=== PATIENT | female | born 2000 | race Caucasian/White ===

== ENCOUNTER 2022-01-03 22:36 | Emergency (ER) | payer OTHER, SELFPAY ==
[2022-01-03 22:54] VITALS: BP 107/75; PULSE 93; RESP 18; TEMP 37.2; O2SAT 96; BMI 24.7
[2022-01-03 23:28] LABS: Appearance Urine Clear (Clear); Bilirubin Urine Negative (Negative); Blood Urine Negative (Negative); Color Urine Yellow (Yellow); Glucose Urine Negative (Negative); Ketones Urine Negative (Negative); Leukocyte Esterase Urine Negative (Negative); Nitrite Urine Negative (Negative); Protein Urine Negative (Negative); Specific Gravity Urine >= 1.030 (1.000-1.030); Urobilinogen Urine 0.2 (0.2-1.0); pH Urine 6.5 (5.0-8.5)
--- NOTE | 2022-01-03 23:51 | ED.ABDPAIN ---
HPI - Abdominal Pain General Chief Complaint: Unspecified Complaint, Adult Stated Complaint: Chest pain and abdominal pain Time Seen by Provider: 01/03/22 23:26 History of Present Illness HPI narrative: 21-year-old young woman presenting to the emergency department with complaint of ?bad? mid abdominal pain radiating into the low back as well. This is similar to what she has experienced in the past but is not this bad. She indicates a problem with her liver and spleen and with her uterus. It sounds as though this liver and spleen issue with some years ago with a diagnosis of mononucleosis and subsequent hepatitis. She was treated through this emergency department bleed by myself did include initial course of steroids. Describes a history of dysmenorrhea and irregular menses more recently. Durations of also been irregular. Most recently just lasted 10 hours and has been spotting for 8-9 days. Denies dysuria. Pain is stabbing in nature. She is feeling nauseated. She feels like this is maybe built up over 3 weeks. Six days ago had an ultrasound following a clinic appointment the day prior. Results are not known to her at this time. --- on review of records later I am able to obtain results of this pelvic ultrasound which looks to be unremarkable. Physiologic fluid present-- she says ?me in my doctor trying to figure this out?. Referring to doctor Wendy. Does endorse a history of celiac disease does does not feel like she has exposed to any triggering factors here. Has tried treatment with ibuprofen 400 mg with essentially no relief. She is not having diarrhea. Is not constipated. Is not vomiting. No fever. No changes in oral contraceptives. Treatments prior to arrival: NSAIDs Related Data Home Medications Medication Instructions Recorded Confirmed levonorgestrel 0.15 mg-ethinyl tab 01/03/22 estradiol 0.03 mg tablet (Zairavelo (28)) Allergies Allergy/AdvReac Type Severity Reaction Status Date / Time No Known Drug Allergies Allergy Verified 01/03/22 22:59 Review of Systems Status of ROS Reports: 10 or more systems reviewed and unremarkable except as noted in History and below [facility] Social History Smoking Status: Never smoker How often do you have a drink containing alcohol: never AUDIT-C Alcohol total score: 0 Non-prescribed substance use: denies use service: No Exam Narrative: Exam Narrative: Pleasant. Seated hunched over a little bit in the bed. Looks rather uncomfortable. Apparently hurts more to lie back. Hands at her low abdomen. Accompanied here by a young man I perceive to be her boyfriend. Skin is warm and dry. Well perfused peripherally extremities are without edema. Oropharynx is a little sticky otherwise unremarkable. Neck is supple without LA. Lungs are clear Cardiovascular-elevated rate regular rhythm no murmurs rubs or gallops appreciated. Abdomen with normoactive bowel sounds. Soft. No peritoneal signs. Diffusely tender to palpation. Does not have discrete flank area tenderness. Const: Vital Signs, click to edit/add: Vital Signs - 24 hr 01/03/22 22:54 Temperature 98.9 F Pulse Rate [Left P ulse Oximeter] 93 Respiratory Rate 18 Blood Pressure [Ri ght Upper Arm] 107/75 Pulse Oximetry 96 Documenting provider has reviewed patient's vital signs: yes Course Course Hospital Course: IV was established. Was given ketorolac normal saline Zofran. Labs ordered. A nonsurgical belly and generalized tenderness suspect this is more of exacerbation of underlying chronic condition whether it is celiac issue or menstrual related. Medications did not help her pain. Wanted to avoid opiate pain medication. Still with complaint of pain and no diagnoses she would like to proceed with CT abdomen and pelvis. This was done. Reviewed by me. As expected. Did not appreciate any particular abnormality. See Radiology summation below. Discussed various pain management options including ketamine low-dose. She has settled for that. Was given this as well and discontinued midway through she did not like how it made her feel. Vital Signs Vital signs: Initial Vital Signs Temperature 98.9 F 01/03/22 22:54 Temperature Source Temporal Artery Scan 01/03/22 22:54 Pulse Rate 93 01/03/22 22:54 Respiratory Rate 18 01/03/22 22:54 Blood Pressure 107/75 01/03/22 22:54 Blood Pressure Mean 85 01/03/22 22:54 Blood Pressure Position Sitting 01/03/22 22:54 Pulse Oximetry 96 01/03/22 22:54 Oxygen Delivery Method 01/03/22 22:54 Vital Signs Temperature 98.9 F 01/03/22 22:54 Pulse Rate 93 01/03/22 22:54 Respiratory Rate 18 01/03/22 22:54 Blood Pressure 107/75 01/03/22 22:54 Pulse Oximetry 96 01/03/22 22:54 Temperature 98.9 F 01/03/22 22:54 Pulse Rate 71 01/04/22 03:00 Respiratory Rate 18 01/04/22 03:00 Blood Pressure 109/72 01/04/22 03:00 Pulse Oximetry 99 01/04/22 03:00 MDM - Abdominal Pain MDM Narrative Medical decision making narrative: Rather normal labs other than concentrated urine. Abdomen pelvis CT------- There is a punctate less than 1 mm stone present in the midzone of the right kidney. No ureteral obstruction or calculi seen. Adrenal: Unremarkable. Bowel: Unremarkable. The appendix is normal in appearance and size. Vascular: Unremarkable. Lymph: Unremarkable. Peritoneum: Unremarkable. No pneumoperitoneum is seen. No significant ascites is noted. Pelvis: Unremarkable. Soft tissue: Unremarkable. Bone: Unremarkable for age. IMPRESSION: 1. No CT correlate for the patient`s symptoms seen. Dictated by Emmanuel Penny MD @ 01/04/2022 2:32:23 AM Discussed all findings with Ms. Singh. She appears frustrated. Will follow up with primary care. Wonder if this is more of an irritable bowel picture complicated by menses intermittently. This might require further stabilization. Early on in course haddiscussed functional abdominal pain as well with Ms. Singh Medical Records Attestation: I reviewed the patient's medical records. Lab Data Attestation: I reviewed the patient's lab results. Labs: Lab Results 01/03/22 01/03/22 01/03/22 Range/Units 00:05 00:05 23:03 WBC 3.23 L (4.50-11.00) K/uL RBC 4.17 (4.00-5.20) m/uL Hgb 13.8 (12.0-16.0) gm/dL Hct 39.2 (33.0-51.0) % MCV 94 (80-100) fL MCH 33 (26-34) pg MCHC 35 (32-36) gm/dL RDW Coeff of Ramez 12.0 (11.5-15.5) % Plt Count 242 (140-440) K/uL Neut % (Auto) 31.9 L (42.0-72.0) % Lymph % (Auto) 50.8 H (20-44) % Wallace % (Auto) 14.6 H (0.0-11.0) % Eos % (Auto) 1.2 (0.0-7.0) % Baso % (Auto) 1.2 (0.0-3.0) % Neut # (Auto) 1.00 L (1.7-7.0) K/uL Lymph # (Auto) 1.60 (0.90-2.90) K/uL Wallace # (Auto) 0.50 (0.00-0.90) K/UL Eos # (Auto) 0.00 (0.00-0.50) K/uL Baso # (Auto) 0.00 (0.00-0.30) K/uL Abs Immat Gran (auto) 0.01 (0.00-0.30) K/uL Sodium 138 (135-149) mmol/L Potassium 3.8 (3.6-5.1) mmol/L Chloride 110 (96-114) mmol/L Carbon Dioxide 24 (20-32) mmol/L BUN 11 (5-24) mg/dL Creatinine 0.7 (0.6-1.2) mg/dL Estimated Creat Clear 102.24 Glucose 95 (60-115) mg/dL Calcium 8.7 (8.7-10.8) mg/dL Total Bilirubin 0.2 (0.1-1.5) mg/dL Direct Bilirubin 0.2 (0.0-0.5) mg/dL AST 29 (12-35) U/L ALT 27 (4-35) U/L Alkaline Phosphatase 79 (40-150) U/L C-Reactive Protein 0.6 (0.5-1.0) mg/dL Total Protein 6.0 (6.0-8.3) g/dL Albumin 3.8 (3.3-5.0) g/dL Urine Color Yellow (Yellow) Urine Appearance Clear (Clear) Urine pH 6.5 (5.0-8.5) Ur Specific [place] >= 1.030 (1.000-1.030) Urine Protein Negative (Negative) Urine Glucose (UA) Negative (Negative) Urine Ketones Negative (Negative) Urine Blood Negative (Negative) Urine Nitrite Negative (Negative) Urine Bilirubin Negative (Negative) Urine Urobilinogen 0.2 (0.2-1.0) Ur Leukocyte Esterase Negative (Negative) Urine HCG, Qual Negative (Negative) Discharge Plan Discharge Clinical Impression: Abdominal pain Patient Disposition: Home w/ Parent or Adult Condition: Improved Additional Instructions: important to stay well hydrated. can continue with ibuprofen or acetaminophen for pain at this time. I would follow up with Your primary care provider to discuss next steps in evaluation and/or management of your pain. return for marked increase in persistent pain, associated fever, intractable vomiting. Prescriptions: No Action levonorgestrel-ethinyl estrad [Gil (28)] 0.15-0.03 mg tablet 0RF Follow Up/Referrals: Rebekah Nguyen MD [Primary Care Provider] - Stand Alone Forms: [employer] Info Instructions
[2022-01-04 00:06] LABS: Ur HCG Qualitative* Negative (Negative)
[2022-01-04 00:19] LABS: Basophils Percent Auto 1.2 % (0.0-3.0); Eosinophils Percent Auto 1.2 % (0.0-7.0); Hematocrit 39.2 % (33.0-51.0); Hemoglobin* 13.8 gm/dL (12.0-16.0); Immature Granulocytes Abs Auto 0.01 K/uL (0.00-0.30); Lymphocytes Percent Auto 50.8 % (20-44); Mean Corpuscular HGB Conc 35 gm/dL (32-36); Mean Corpuscular Hemoglobin 33 pg (26-34); Mean Corpuscular Volume 94 fL (80-100); Monocytes Percent Auto 14.6 % (0.0-11.0); Neutrophils Percent Auto 31.9 % (42.0-72.0); Platelet Count* 242 K/uL (140-440); Red Blood Count 4.17 m/uL (4.00-5.20); White Blood Count* 3.23 K/uL (4.50-11.00)
[2022-01-04] MEDS: 0.9 % SODIUM CHLORIDE 1000 ml 1,000 ML IV (00:25)
[2022-01-04] MEDS: KETOROLAC 15 MG/ML inj 30 MG IVP (00:26)
[2022-01-04] MEDS: ONDANSETRON 2 MG/ML inj 4 MG IVP (00:26)
[2022-01-04 00:38] LABS: Albumin* 3.8 g/dL (3.3-5.0); Chloride* 110 mmol/L (96-114)
[2022-01-04 00:39] LABS: Potassium* 3.8 mmol/L (3.6-5.1); Sodium* 138 mmol/L (135-149)
[2022-01-04 00:41] LABS: Creatinine* 0.7 mg/dL (0.6-1.2); Est. Creatinine Clearance* 102.24; Estimated Glomerular Filt Rate 127.69
[2022-01-04 00:42] LABS: Alanine Aminotransferase* 27 U/L (4-35); Alkaline Phosphatase* 79 U/L (40-150); Aspartate Amino Transferase* 29 U/L (12-35); Bilirubin Direct* 0.2 mg/dL (0.0-0.5); Bilirubin Total* 0.2 mg/dL (0.1-1.5); Blood Urea Nitrogen* 11 mg/dL (5-24); Calcium* 8.7 mg/dL (8.7-10.8); Carbon Dioxide* 24 mmol/L (20-32); Glucose* 95 mg/dL (60-115)
[2022-01-04 00:45] LABS: C Reactive Protein* 0.6 mg/dL (0.5-1.0)
--- NOTE | 2022-01-04 01:45 | CRLHL7_ITS ---
For Patients: As a result of the Century Cures Act, medical imaging exams and procedure reports are released immediately into your electronic medical record. You may view this report before your referring provider. If you have questions, please contact your health care provider. INDICATION: Weeks of abdominal pain radiating into lower back TECHNIQUE: CT Abdomen and pelvis without i.v. contrast. Coronal and sagittal reformats were obtained. COMPARISON: None FINDINGS: Lower chest: Unremarkable. Liver: Unremarkable. Spleen: Unremarkable. Pancreas: Unremarkable. Gallbladder: Unremarkable. Kidney: There is a punctate less than 1 mm stone present in the midzone of the right kidney. No ureteral obstruction or calculi seen. Adrenal: Unremarkable. Bowel: Unremarkable. The appendix is normal in appearance and size. Vascular: Unremarkable. Lymph: Unremarkable. Peritoneum: Unremarkable. No pneumoperitoneum is seen. No significant ascites is noted. Pelvis: Unremarkable. Soft tissue: Unremarkable. Bone: Unremarkable for age. IMPRESSION: 1. No CT correlate for the patient`s symptoms seen. Dictated by Emmanuel Penny MD @ 01/04/2022 2:32:23 AM Please note that all CT scans at this facility use dose modulation, iterative reconstruction, and/or weight-based dosing when appropriate to reduce radiation dose to as low as reasonably achievable. Dictated by: Emmanuel Penny MD @ 01/04/2022 02:32:26 (Electronically Signed)
[2022-01-04] MEDS: KETAMINE HCL 20 MG in 0.9 % SODIUM CHLORIDE 100 ml 100 ML 300.6 MG IVPB (02:22)
[2022-01-04 02:25] VITALS: BP 104/70; PULSE 69; RESP 18; O2SAT 98
[2022-01-04 02:30] VITALS: BP 109/74; PULSE 75; RESP 18; O2SAT 99
[2022-01-04 02:45] VITALS: BP 103/70; PULSE 59; RESP 18; O2SAT 97
[2022-01-04 03:00] VITALS: BP 109/72; PULSE 71; RESP 18; O2SAT 99
[2022-01-04 14:51] LABS: Slide Review Reflex No
== END 2022-01-04 03:19 | disposition home or self-care (01) ==
PROVIDERS: Emergency Provider Family Medicine; PCP Family Medicine
DX: R10.9 Unspecified abdominal pain (principal)
CPT/HCPCS: 96365; 96375; 36415; 74176; 80048; 80076; 81003; 81025; 85025; 86140; 99284; J1885; J2405; J3490; J7030

== ENCOUNTER 2022-04-29 11:02 | Emergency (ER) | payer OTHER, SELFPAY ==
[2022-04-29 11:15] VITALS: BP 122/81; PULSE 74; RESP 20; TEMP 37.4; O2SAT 97; BMI 27.4
--- NOTE | 2022-04-29 11:39 | ED.GENADULT ---
HPI - General Adult General Chief complaint: Headache/Migraine Stated complaint: Hard to breathe and headache Time Seen by Provider: 04/29/22 11:22 History of Present Illness HPI narrative: This 22-year-old female comes in reporting severe headache for the past 5 days. She states that she had headache on and off for the last couple weeks but much worse over the past 5 days. She does report some pain in her neck and down her back also. She has not had any fevers. She does arrive here with normal vital signs. She does not report any injury event or strenuous activity. She gets occasional headaches but nothing like this. She also reports some pain in her lower sternal area and upper epigastric area that is worsened with taking a deep breath. She does not have any cough for shortness of breath. Related Data Home Medications Medication Instructions Recorded Confirmed levonorgestrel 0.15 mg-ethinyl tab 01/03/22 estradiol 0.03 mg tablet (Kurvelo (28)) Allergies Allergy/AdvReac Type Severity Reaction Status Date / Time gluten Allergy Verified 04/29/22 11:14 Review of Systems Status of ROS: Reports: 10 or more systems reviewed and unremarkable except as noted in History and below Narrative: Constitutional: No fevers, no weight gain or loss. Eyes: No discharge. No vision changes. HENT: No congestion, no sore throat, no ear pain. Cardiovascular: No palpitations. Respiratory: No shortness of breath, no wheezes, no cough. Gastrointestinal: No vomiting, no diarrhea. Upper epigastric abdominal pain which is worse with palpation. Genitourinary: No dysuria, no hematuria. Musculoskeletal: Normal range of motion. Skin: No rashes, no pruritis. Neurological: No dizziness, weakness, sensory change, speech change. Endo/Heme/Allergies: No bruising or bleeding. No polydipsia. Pysch: no suicidality, no anxiety, no insomnia. All other systems reviewed and are negative. PFSH [facility] Social History Smoking Status: Never smoker Do you use any of these nicotine containing products: None Second hand tobacco smoke exposure: No How often do you have a drink containing alcohol: never How often do you have six or more drinks on one occasion: Never AUDIT-C Alcohol total score: 0 Non-prescribed substance use: denies use service: No Exam Narrative: Exam Narrative: Constitutional: Well-developed, well-nourished, no acute distress. HEENT: Normocephalic, atraumatic. Neck: Normal range of motion. This patient has worsening pain in her neck when it flexing her head forward to attempt to touch her chin to her chest. She also has increased pain when pulling her knees up toward her chest. Heart: Regular. No murmurs. Normal rate. Intact distal pulses. Lungs: Clear to auscultation. No wheezes, rhonchi, or rales. She has distinct discomfort when palpating in the lower sternum and upper epigastric region. Abdomen: Normal bowel sounds. No rebound tenderness. Pain across the upper abdomen which is reproduced with palpation in this area. Genitalia: Deferred. Back: No midline tenderness. Normal range of motion. Extremities: Normal range of motion. No injury. Skin: Intact. No rash. Warm. No erythema or pallor. Neurologic: No altered sensation. No weakness. Alert and oriented. Psychiatric: No suicidality. No anxiety or depression. No insomnia. Nursing notes and vitals signs are reviewed. Const: Vital Signs, click to edit/add: Vital Signs - 24 hr 04/29/22 11:15 Temperature 99.4 F Pulse Rate [Pulse Oximeter] 74 Respiratory Rate 20 Blood Pressure [Ri ght Upper Arm] 122/81 Pulse Oximetry 97 Oxygen Delivery Me thod Room Air Course Vital Signs Vital signs: Initial Vital Signs Temperature 99.4 F 04/29/22 11:15 Temperature Source Temporal Artery Scan 04/29/22 11:15 Pulse Rate 74 04/29/22 11:15 Pulse Rhythm 04/29/22 11:15 Respiratory Rate 20 04/29/22 11:15 Blood Pressure 122/81 04/29/22 11:15 Blood Pressure Mean 94 04/29/22 11:15 Blood Pressure Position Supine 04/29/22 11:15 Pulse Oximetry 97 04/29/22 11:15 Oxygen Delivery Method 04/29/22 11:15 Vital Signs Temperature 99.4 F 04/29/22 11:15 Pulse Rate 74 04/29/22 11:15 Respiratory Rate 20 04/29/22 11:15 Blood Pressure 122/81 04/29/22 11:15 Pulse Oximetry 97 04/29/22 11:15 Oxygen Delivery Method 04/29/22 11:15 Temperature 99.4 F 04/29/22 11:15 Pulse Rate 74 04/29/22 11:15 Respiratory Rate 20 04/29/22 11:15 Blood Pressure 122/81 04/29/22 11:15 Pulse Oximetry 97 04/29/22 11:15 Oxygen Delivery Method 04/29/22 11:15 Medical Decision Making MDM Narrative Medical decision making narrative: This patient comes in with headache and upper epigastric abdominal pain. She does report pain going down her back and neck. I did discuss possibility of meningitis and discussed lumbar puncture as a diagnostic tool in this regard. She was not interested in this test. Actually her suspicion is not very high for a bacterial infection but could be a viral infection. Lab results were then acquired which returned with normal findings. Additionally I used ultrasound to examine her right upper quadrant and upper abdomen. These all returned with normal findings. She is sufficiently satisfied with this and wishes to return home. I did offer medication to help with her symptoms which she declined. I describe signs and symptoms that would indicate a need for return and re-evaluation. Lab Data Labs: Lab Results 04/29/22 04/29/22 Range/Units 11:56 11:56 WBC 4.79 (4.50-11.00) K/uL RBC 4.55 (4.00-5.20) m/uL Hgb 14.7 (12.0-16.0) gm/dL Hct 41.7 (33.0-51.0) % MCV 92 (80-100) fL MCH 32 (26-34) pg MCHC 35 (32-36) gm/dL RDW Coeff of Ramez 11.9 (11.5-15.5) % Plt Count 261 (140-440) K/uL Neut % (Auto) 55.8 (42.0-72.0) % Lymph % (Auto) 34.0 (20-44) % Rice % (Auto) 6.3 (0.0-11.0) % Eos % (Auto) 3.1 (0.0-7.0) % Baso % (Auto) 0.8 (0.0-3.0) % Neut # (Auto) 2.67 (1.7-7.0) K/uL Lymph # (Auto) 1.63 (0.90-2.90) K/uL Rice # (Auto) 0.30 (0.00-0.90) K/UL Eos # (Auto) 0.15 (0.00-0.50) K/uL Baso # (Auto) 0.04 (0.00-0.30) K/uL Abs Immat Gran (auto) 0.00 (0.00-0.30) K/uL Sodium 139 (135-149) mmol/L Potassium 4.1 (3.6-5.1) mmol/L Chloride 105 (96-114) mmol/L Carbon Dioxide 26 (20-32) mmol/L BUN 11 (5-24) mg/dL Creatinine 0.7 (0.5-1.5) mg/dL Estimated Creat Clear 101.39 Estimated GFR 127 ml/min Glucose 104 (60-115) mg/dL Calcium 9.6 (8.4-10.6) mg/dL Total Bilirubin 0.5 (0.1-1.5) mg/dL Direct Bilirubin 0.0 (0.0-0.5) mg/dL AST 29 (12-35) U/L ALT 30 (4-35) U/L Alkaline Phosphatase 57 (40-150) U/L Total Protein 7.0 (6.0-8.3) g/dL Albumin 4.5 (3.3-5.0) g/dL Lipase 109 (23-300) U/L Discharge Plan Discharge Clinical Impression: Gastritis, Headache Patient Disposition: Home, Self-Care Condition: Stable Additional Instructions: Use [id number] medicines as needed and directed. Follow up with MD or return if worsening. Prescriptions: No Action levonorgestrel-ethinyl estrad [Zairavelo (28)] 0.15-0.03 mg tablet Follow Up/Referrals: Rebekah Nguyen MD [Primary Care Provider] - Stand Alone Forms: [employer] Info Instructions Procedures Ultrasound Biliary exam #1: Anatomical areas examined: gallbladder, long and short axis Indications: RUQ/epigastric pain Exam type: limited abdominal ultrasound; RUQ Impression: normal exam
[2022-04-29 12:12] LABS: Basophils Absolute Auto 0.04 K/uL (0.00-0.30); Basophils Percent Auto 0.8 % (0.0-3.0); Eosinophils Absolute Auto 0.15 K/uL (0.00-0.50); Eosinophils Percent Auto 3.1 % (0.0-7.0); Hematocrit 41.7 % (33.0-51.0); Hemoglobin* 14.7 gm/dL (12.0-16.0); Lymphocytes Absolute Auto 1.63 K/uL (0.90-2.90); Mean Corpuscular HGB Conc 35 gm/dL (32-36); Mean Corpuscular Hemoglobin 32 pg (26-34); Mean Corpuscular Volume 92 fL (80-100); Monocytes Percent Auto 6.3 % (0.0-11.0); Neutrophils Absolute Auto 2.67 K/uL (1.7-7.0); Neutrophils Percent Auto 55.8 % (42.0-72.0); Platelet Count* 261 K/uL (140-440); RDW Coefficient of Variation % 11.9 % (11.5-15.5); Red Blood Count 4.55 m/uL (4.00-5.20); White Blood Count* 4.79 K/uL (4.50-11.00)
[2022-04-29 12:15] LABS: Albumin* 4.5 g/dL (3.3-5.0)
[2022-04-29 12:16] LABS: Chloride* 105 mmol/L (96-114); Potassium* 4.1 mmol/L (3.6-5.1); Sodium* 139 mmol/L (135-149)
[2022-04-29 12:18] LABS: Alkaline Phosphatase* 57 U/L (40-150); Aspartate Amino Transferase* 29 U/L (12-35); Bilirubin Total* 0.5 mg/dL (0.1-1.5); Blood Urea Nitrogen* 11 mg/dL (5-24); Carbon Dioxide* 26 mmol/L (20-32); Creatinine* 0.7 mg/dL (0.5-1.5); Est. Creatinine Clearance* 101.39; Estimated Glomerular Filt Rate 127 ml/min; Glucose* 104 mg/dL (60-115)
--- OUTSIDE RECORDS SUMMARY | 2022-04-29 12:18 | XMS_ITS | Clinical Summary ---
:2000 Author Organization [facility] Address [address] [place] [id number] Care Team Providers Name Role Phone Elsewhere, Pcp Primary Care Provider Unavailable Source Comments Patient records contain information from all sites at [facility]. For routine questions regarding patient records, call [phone] during business hours, M-F 8:00 AM - 5:00 PM Central Time. Record requests for emergency care only can be directed to [phone] at any time.[facility] Allergies No known active allergies Medications Medication Sig Dispensed Refills Start Date End Date Status acetaminophen (TYLENOL) Take by mouth as 0 1 Active 500 mg capsule needed. albuterol 90 Inhale 1-2 0 10/16/2020 Activ e mcg/actuation inhaler puffs. hydrOXYzine (VISTARIL) Take 50 mg by 0 12/22/2021 Active 50 mg capsule mouth. levonorgestreL-ethinyl Take 1 tablet by 0 08/21/2021 Active estrad (NORDETTE) mouth daily. 0.15-0.03 mg per tablet ibuprofen (ADVIL,MOTRIN) Take 200 mg by 0 Active 200 mg tablet mouth every 6 (six) hours as needed for pain. Active Problems No known active problems Encounters Date Type Specialty Care Team Description 01/29/2022 - Emergency Emergency Medicine PennyDavon N, Infection Urinary Tract (Primary Dx); 01/30/2022 C.N.P. Bleeding Vagina l from Last 3 Months Immunizations Name Administration Dates Next Due DTaP, Unspecified 2002, 2002, 2002 HepB Pediatric/Adolescent 2002 Hib-HepB 2002, 2002 IPV 2002, 2002, 2002 Influenza, Unspecified 06/13/2015, 04/16/2013, 05/12/2012, 1 PCV7 (discontinued) 2002, 2002, 2002 Tdap 03/22/2013 Family History Medical History Relation Name Comments Hyperthyroidism Brother Other(retired) Mother pancrease remove d, on enzymes Relation Name Status Comments Brother Mother Social History Tobacco Use Types Packs/Day Years Used Date Smoking Tobacco: Never Tobacco Cessation: Counseling Given: Not Answered Alcohol Use Standard Drinks/Week Comments Never 0 (1 standard drink = 0.6 oz pure alcoho l) Sex Assigned at Date Recorded Not on file Last Filed Vital Signs Vital Sign Reading Time Taken Comments Blood Pressure 121/87 01/30/2022 1:00 AM CDT Pulse 71 01/30/2022 1:00 AM CDT Temperature 37 ??C (98.6 ??F) 01/29/2022 11:45 PM CDT Respiratory Rate 18 01/30/2022 1:00 AM CDT Oxygen Saturation 96% 01/30/2022 1:00 AM CDT Inhaled Oxygen Concentration - - Weight 68 kg (149 lb 14.6 oz) 01/29/2022 11:46 PM CDT Height 157 cm (5' 1.81) 09/08/2015 8:47 AM 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 Body Mass Index - - Plan of Treatment Health Maintenance Due Date Last Done Comments Chlamydia and Gonorrhea 2002 Screening HIV Screening 2002 Hepatitis C Screening 2002 1 week Well Child Check-Up 2002 1 month Well Child Check-Up 2002 2 month Well Child Check-Up 2002 4 month Well Child Check-Up 2002 6 month Well Child / 2002 Alternative Check-Up COVID-19 Vaccine (#1) 2002 9 month Well Child Check-Up 2002 12 month Well Child / 01/10/2003 Alternative Check-Up 15 month Well Child Check-Up 04/12/2003 18 month Well Child 07/13/2003 2 year Well Child Check-Up 01/11/2004 30 month Well Child Check-Up 07/13/2004 3 year Well Child Check-Up 01/10/2005 4 year Well Child Check-Up 01/10/2006 5 year Well Child Check-Up 01/10/2007 6 year Well Child Check-Up 01/11/2008 7 year Well Child / 01/10/2009 Alternative Check-Up 8 year Well Child Check-Up 01/10/2010 9 year Well Child Check-Up 01/10/2011 10 year Well Child Check-Up 01/11/2012 11 year Well Child Check-Up 01/10/2013 12 year Well Child Check-Up 01/10/2014 13 year Well Child Check-Up 01/10/2015 16 year Well Child Check-Up 01/11/2016 Vision Screening during Well 02/11/2016 Child Visit 17 year Well Child Check-Up 01/10/2017 18 year Well Child Check-Up 01/10/2018 19 year Well Child Check-Up 01/10/2019 18 year Well Child Check-Up 01/11/2020 21 year Well Child Check-Up 01/10/2021 Depression Screening (Annual 07/04/2021 PHQ-2) 20 year Well Child Check-Up 01/10/2022 Well Child Check-Up ([facility]) 01/10/2022 Influenza Vaccine (#1) 2022 04/19/2018, 05/20/2017, 05/17/2016, Additional history exists DTaP,Tdap,and Td Vaccines (6 03/22/2023 03/22/2013, 004, - Td or Tdap) 2002, Additional history exists Hepatitis B Vaccines Completed 2002, 2002, 2002 Pneumococcal vaccine (0-64 Aged Out 2002, 2, No longer eligible years) 2002 based on patient 's age to complete this topic HPV Vaccines Completed 09/24/2015, 10/31/2014 Meningococcal Vaccine Completed 04/19/2018, 04/19/2018, 10/31/2014 Anemia/Iron Deficiency Completed 12/22/2021, 06/18/2020, Screening During Well Child 03/26/2020, Addition al Visit (if High Risk history exists Menstruating Female) Procedures Procedure Name Priority Date/Time Associated Comments Diagnosis TEST, POCT, STAT 01/30/2022 12:10 Re sults for this U (LAB) AM CDT procedure are i n the results section. URINALYSIS WITH STAT 01/30/2022 12:10 Results for this MICROSCOPIC AM CDT procedure are i n the results section. BACTERIAL CULTURE, STAT 01/30/2022 12:10 Resul ts for this AEROBIC + SUSC, URINE AM CDT proced ure are in the results section. from Last 3 Months Results (ABNORMAL) Bacterial Culture, Aerobic + Susc, Urine (01/30/2022 12:10 AM CDT) [facility] gist Method Time Signature Urine Culture ESCHERICHIA COLI 02/01/2022 ECLR >100,000 cfu/mL 11:57 AM CDT (A) Specimen Anatomical Collection Method Collection Time Receive d Time (Source) Location / / Volume Laterality Urine (Urine, 01/30/2022 12:10 01/30/2022 9:31 Midstream) AM CDT PM CDT Comment: Specimen Source Site: Urine Organism Antibiotic Method Susceptibility Escherichia coli Ampicillin SUSCEPTIBILITY, LEEANN 8 mcg/mL: S usceptible (MCG/ML) Escherichia coli Piperacillin + Tazobactam SUSCEPTIBILITY, LEEANN < =4 mcg/mL: Susceptible (MCG/ML) Escherichia coli Cefazolin SUSCEPTIBILITY, LEEANN <=4 mcg/mL: Susceptible (MCG/ML) Comment: The interpretation applies t o uncomplicated urinary tract infections only. It al so applies to these oral cephalosporins: cefuroxime, cephalexin, and cefprozil. Escherichia coli Ceftazidime SUSCEPTIBILITY, LEEANN <=1 mcg/mL: (MCG/ML) Susceptible Escherichia coli Ceftriaxone SUSCEPTIBILITY, LEEANN <=1 mcg/mL: (MCG/ML) Susceptible Escherichia coli Cefepime SUSCEPTIBILITY, LEEANN <=1 mcg/mL: (MCG/ML) Susceptible Escherichia coli Aztreonam SUSCEPTIBILITY, LEEANN <=1 mcg/mL: (MCG/ML) Susceptible Escherichia coli Ertapenem SUSCEPTIBILITY, LEEANN <=0.5 mcg/m L: (MCG/ML) Susceptible Escherichia coli Meropenem SUSCEPTIBILITY, LEEANN <=0.25 mcg/ mL: (MCG/ML) Susceptible Escherichia coli Gentamicin SUSCEPTIBILITY, LEEANN <=1 mcg/mL: (MCG/ML) Susceptible Escherichia coli Tobramycin SUSCEPTIBILITY, LEEANN <=1 mcg/mL: (MCG/ML) Susceptible Escherichia coli Levofloxacin SUSCEPTIBILITY, LEEANN <=0.12 mcg/ mL: (MCG/ML) Susceptible Escherichia coli Nitrofurantoin SUSCEPTIBILITY, LEEANN <=16 mcg/mL : (MCG/ML) Susceptible Escherichia coli Trimethoprim + SUSCEPTIBILITY, LEEANN >=320 mcg/m L: Sulfamethoxazole (MCG/ML) Resistant Davon Penny C.N.P. LAB MICROBIOLOGY - GENERAL O RDERABLES Performing Organization Address City/[facility] Phon e Number [facility]- [address] [place] [phone] [facility] [place] [address] [address] Test, POCT, Urine (lab) (01/30/2022 12:10 AM CDT) P athologist Signature Negative 01/30/2022 CNFL Test, POCT, U 12:33 AM CDT Specimen Anatomical Collection Method Collection Time Receive d Time (Source) Location / / Volume Laterality Urine 01/30/2022 12:10 01/30/2022 AM CDT 12:22 AM CDT Davon Penny C.N.P. LAB POCT ORDERABLES - DEVICE Performing Organization Address City/[facility] Phon e Number [facility]- [address] [place] [phone] [place] [address] [place] [address] System in [address] (ABNORMAL) Urinalysis with Microscopic: Urine, Midstream (01/30/2022 12:10 AM CDT) Analysis Performed At Patho logist Time Signature Source Urine, Urine, 01/30/2022 CNFL Midstream 12:23 AM CDT Clarity Cloudy (A) Clear 01/30/2022 CNFL 12:40 AM CDT Color Yellow 01/30/2022 CNFL 12:40 AM CDT Comment: ----REFERENCE VALUE---- Colorless Yellow Amy Blood Small (A) Negative 01/30/2022 12:40 AM CDT CNFL Nitrite Positive (A) Negative 01/30/2022 12:40 AM CDT CNF L Leukocyte Esterase Moderate (A) Negative 01/30/2022 12:40 A M CDT CNFL Protein 100 (A) mg/dL 01/30/2022 12:40 AM CDT CNFL Comment: ----REFERENCE VALUE---- Negative Trace Glucose Negative Negative mg/dL 01/30/2022 12:40 AM CDT C NFL Ketones, QI(U) Negative Negative mg/dL 01/30/2022 12:40 AM CDT CNFL Bilirubin Negative Negative 01/30/2022 12:40 AM CDT CNFL pH 7.0 5.0 - 8.0 01/30/2022 12:40 AM CDT CNFL Specific [place] 1.020 1.001 - 1.035 01/30/2022 12:40 AM CDT CNFL Urobilinogen 0.2 0.2 - 1.0 mg/dL 01/30/2022 12:40 AM C DT CNFL White Blood Cells >100 (A) /hpf 01/30/2022 12:40 AM CD T CNFL Comment: ----REFERENCE VALUE---- Males: 0-3 Females: 0-10 Unknown: 0-10 Red Blood Cells None Seen 0 - 2 /hpf 01/30/2022 12:40 AM CDT CNFL Dysmorphic Red Blood Cells <=25 <=25 % 01/30/2022 12 :40 AM CDT CNFL Mucus Present /hpf 01/30/2022 12:40 AM CDT CNFL Squamous Cells Occ-3 /hpf 01/30/2022 12:40 AM CDT C NFL Bacteria Present (A) None Seen 01/30/2022 12:40 AM CDT CNFL Specimen Anatomical Collection Method Collection Time Receive d Time (Source) Location / / Volume Laterality Urine (Urine, 01/30/2022 12:10 01/30/2022 Midstream) AM CDT 12:22 AM CDT Mays N Hmealatha C.N.P. LAB URINE ORDERABLES Performing Organization Address City/State/ZIP Code Phon e Number [facility]- [address] [place] [address] [place] [address] [facility] [place] [address] System in [address] from Last 3 Months Insurance Payer Benefit Plan / Subscriber ID Effective Phone Address T ype Group Dates [place] [employer] [id number] 2021-Prese [id number] Medicaid HMO [place] [place] [facility] nt [address] [place] [address] Care Teams Clinical Nurse Reviewer Relationship Specialty Start Date End Date Elsewhere, Pcp PCP - General 03/04/19
[2022-04-29 12:19] LABS: Alanine Aminotransferase* 30 U/L (4-35); Calcium* 9.6 mg/dL (8.4-10.6); Lipase* 109 U/L (23-300)
--- OUTSIDE RECORDS SUMMARY | 2022-04-29 12:19 | XMS_ITS | Encounter Summary ---
:2000 Author Organization [facility] Address [address] [place] [address] Care Team Providers Name Role Phone Unavailable Primary Care Provider Unavailable Encounter Details Date Type Department Care Team Description 03/22/[address] [facility] ME Deepthi Shelton, CALEB, C.N.P., D. N.P. [address] [place] [address] (Wo rk) Social History Tobacco Use Types Packs/Day Years Used Date Smoking Tobacco: Never Assessed Sex Assigned at Date Recorded Not on file documented as of this encounter Last Filed Vital Signs Vital Sign Reading Time Taken Comments Blood Pressure - - Pulse - - Temperature - - Respiratory Rate - - Oxygen Saturation - - Inhaled Oxygen Concentration - - Weight 33.7 kg (74 lb 4.7 oz) 03/22/2013 7:55 AM CDT Height 137 cm (4' 5.94) 03/22/2013 7:55 AM CDT Body Mass Index 17.96 03/22/2013 7:55 AM CDT Body Mass Index Percentile 56.78 % 03/22/2013 7:55 AM CD T Growth Chart: CDC (Girls, 2-20 Years) documented in this encounter Medications at Time of Discharge Medication Sig Dispensed Refills Start Date End Date acetaminophen (TYLENOL) 500 Take by mouth as 0 mg capsule needed. documented as of this encounter H&P Notes Deepthi Shelton, D.N.P., C.N.P. - 03/22/2013 7:29 AM CDT [id number] CHIEF COMPLAINT/REASON FOR VISIT Routine wellness examination. HISTORY OF PRESENT ILLNESS Patient is an 13-year-old female who presents to the clinic with her twin brother and her father today for a routine wellness examination. Presently this time she does indicate that she does have a lump to the left breast in which the father indicates that an ultrasound has been completed on this at an outside facility which was noted be unremarkable. She occasionally has some tenderness to this area. She does have a bug bite to the left lateral aspect of the neck but indicates that it has been resolving over the past 2 weeks duration. She also complains that occasionally she feels like she may have a little bit of some itching vaginal area in which she will apply some toilet paper to this area with minimal symptom improvement. They otherwise denied having any other further concerns or issues at this time. Please see the 11 to14 year old intake form ([facility] Form for further intake and physical findings). PAST MEDICAL/SURGICAL HISTORY MEDICAL: Unremarkable. SURGICAL: Unremarkable. FAMILY HISTORY Past family history includes: A father with hypothyroidism. A mother with a history of pancreatitis. A sister and brother currently alive and well. ALLERGIES To strawberries in the past including rash. CURRENT MEDICATIONS No medications are taken on a daily basis. PHYSICAL EXAM OBJECTIVE: Patient is alert, well-nourished, acting appropriately for age. HEAD: Normocephalic/atraumatic. PUPILS: WAYNE. OROPHARYNX: [place] and moist. EARS: Bilateral TMs are clear, bony landmarks noted and WNL. NARES: Patent, no erythema or drainage noted. NECK: No anterior/posterior lymphadenopathy noted. HEART: Regular S1, S2, no murmurs, rubs or gallops noted. LUNGS: Clear to auscultation, no prolonged expiratory phases, wheezing, or retractions noted. SKIN: Without unusual rashes or suspicious lesions, skin turgor within normal limits and cap refill <3 seconds. BREAST: Note that there is an approximate 1 cm in diameter well-demarcated breast bud and to the left areola area. No skin discoloration is noted. This area is very minimally tender to palpation. EXTERNAL GENITAL EXAMINATION: Reveals a little bit of some mild erythema, though no and drainage within the vaginal area. New Stage I is noted to the area. IMPRESSION/REPORT/PLAN 1. Routine wellness examination . 2. Reports of vaginal pruritus. PLAN: Discussed overall findings at length with patient and the patient's father. Presently at this time I indicated I would recommend that she had refrain from using any tissue paper to this area though I did provide them with Nystatin 100,000 units per gram topical ointment that they could apply to this area as needed and if no symptom improvement follow-up would be warranted. These overall findings were discussed at length with patient and the patient's father in which both say they understand this plan. Currently at this time, wet mount was not completed but did advise I would recommend furtherpursuing this if the symptoms continue. Again, patient's father denied having any further questions. Patient was given her Tdap vaccine which she tolerated well. No reactions were noted (please see nurse's notes). PATIENT EDU #1 Patient Education Ready to learn No apparent learning barriers were identified Learning preferences include listening Explained diagnosis and treatment plan Patient/Child/Caregiver expressed understanding of the content. Deeptih Shelton D.N.P./Bola/princess Electronically Signed By: DEEPTHI SHELTON DNP, FNP On: 03/23/2013 08:02 AM Source: [facility] [id number] Document Id: [id number] documented in this encounter Miscellaneous Notes Miscellaneous - Deepthi Shelton D.N.P., C.N.P. - 03/22/2013 8:57 AM CDT Ambulatory Patient Summary [address] [address] Visit Information Name: KRISTEN CHAVEZ [facility] Number: [id number] Current Date: 03/22/2013 08:57:22 Physicians Attending Provider: DEEPTHI SHELTON DNP, FNP Primary Care Provider: DEEPTHI SHELTON DNP, FNP Your Medications Here is a list of your medications. It is important to take your medications as directed. Use a pillbox or chart to help remind you to take your medications. Please let your doctor or nurse know if you have problems taking your medications. Medication/Strength Dose Route Frequency Indications/Special Instructions/Comments/Notes nystatin topical (nystatin 100,000 units/g topical ointment) 1 kaiden Topical three times a day as needed for vaginal symptoms acetaminophen (Tylenol) as directed Oral as needed Attention: If you have any medications at home that are not on this list, DO NOT take them until youcontact your provider for clarification. Your Allergies & Intolerances Substance Reaction Symptoms Category Comments Strawberries Drug Your Problem List Problem Status Onset Comments No Chronic Problems Active Your Upcoming Appointments Date Time Location Reason Provider No Appointments found Your Goals/Additional instructions: Source: [facility] Document Id: [id number] Miscellaneous - Deepthi Shelton D.N.Deysi, C.N.P. - 03/22/2013 8:57 AM CDT Ambulatory Depart Summary [address] [address] Visit Information Name: KRISTEN CHAVEZ TAMERA [facility] Number: [id number] Visit Date: 03/22/2013 08:57:21 Attending Provider: DEEPTHI SHELTON DNP, FNP Primary Care Provider: DEEPTHI SHELTON DNP, FNP KRISTEN CHAVEZ has been given the following list of medications: Your Medications It is important to take your medications as directed. Use a pill box or chart to help remind you to take your medications. Please let your doctor or nurse know if you have problems taking your medications. Medication/Strength Dose Route Frequency Indications/Special Instructions/Comments/Notes nystatin topical (nystatin 100,000 units/g topical ointment) 1 kaiden Topical three times a day as needed for vaginal symptoms acetaminophen (Tylenol) as directed Oral as needed Attention: If you have any medications at home that are not on this list, DO NOT take them until youcontact your provider for clarification. Additional Information: Source: [facility] Document Id: [id number] Miscellaneous - Dipak You L.P.N. - 03/22/2013 7:55 AM CDT Pediatric Core Loader Intake/History Pediatric Core Loader Intake/History Entered On: 03/22/2013 7:58 CDT Performed On: 03/22/2013 7:55 CDT by DIPAK YOU LPN Intake Chief Complaint : 13yr old well child exam ankles hurt Temperature Core : 36.9 DegC(Converted to: 98.4 DegF) Peripheral Pulse Rate : 76 /min Respiratory Rate : 16 /min Heart Rhythm : Regular Systolic Blood Pressure : 70 mmHg (<LLOW) Diastolic Blood Pressure : 42 mmHg (<LLOW) NIBP Mean : 51 mmHg BP Location : Right upper extremity Blood Pressure Cuff Size : Regular Height : 137.0 cm(Converted to: 4 ft 6 inch(es), 53.94 inch(es)) Actual Weight : 33.7 kg(Converted to: 74 lb 5 oz) Weight Source : Standing scale Dosing Weight Clinic : 33.7 kg Clinic BSA : 1.13 Body Mass Index : 17.96 kg/m2 DIPAK YOU LPN - 03/22/2013 7:55 CDT General Info Mode of Arrival : Ambulatory Accompanied By : Father Information Given By : Patient, Father Languages : Cypriot DIPAK YOU REHAB MANAGER - 03/22/2013 7:55 CDT Subjective Pain Symptoms : No DIPAK YOU LPN - 03/22/2013 7:55 CDT Dependent Habits Tobacco Use/Currently Using : No Tobacco Use/Last 12 months : No Tobacco Use/Advised to Quit : No Exposure to Tobacco Smoke : Care provider denies smoking in home Smoking Status : Never smoker Alcohol Use : No DIPAK YOU LPN - 03/22/2013 7:55 CDT Caffeine Use Grid Caffeine Use : Current Type : Soft drinks Frequency : Weekly DIPAK YOU LPN - 03/22/2013 7:55 CDT Recreational Drug Use Grid Drug Use : None DIPAK YOU LPN - 03/22/2013 7:55 CDT Source: [facility] Document Id: [id number] CDT!40 documented in this encounter Plan of Treatment Not on filedocumented as of this encounter Visit Diagnoses Not on filedocumented in this encounter
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
--- OUTSIDE RECORDS SUMMARY | 2022-04-29 12:19 | XMS_ITS | Encounter Summary ---
:2000 Author Organization [facility] Address [address] [place] [address] Care Team Providers Name Role Phone Unavailable Primary Care Provider Unavailable Encounter Details Date Type Department Care Team Description 04/16/2013 Hospital Encounter HX [facility] ME Deepthi Funk, CALEB, C.N.P., D. N.P. [address] [place] [address] (Wo rk) Social History Tobacco Use Types Packs/Day Years Used Date Smoking Tobacco: Never Assessed Sex Assigned at Date Recorded Not on file documented as of this encounter Medications at Time of Discharge Medication Sig Dispensed Refills Start Date End Date acetaminophen (TYLENOL) 500 Take by mouth as 0 mg capsule needed. documented as of this encounter Plan of Treatment Not on filedocumented as of this encounter Visit Diagnoses Not on filedocumented in this encounter
--- OUTSIDE RECORDS SUMMARY | 2022-04-29 12:19 | XMS_ITS | Encounter Summary ---
:2000 Author Organization [facility] Address [address] [place] [address] Care Team Providers Name Role Phone Unavailable Primary Care Provider Unavailable Encounter Details Date Type Department Care Team Description 10/01/2009 Hospital Encounter HX [facility] INPT/OBSRV Carlos Santoyo M.D. [address] [facility] [address] [place], [address] [address] (Wo rk) Social History Tobacco Use Types Packs/Day Years Used Date Smoking Tobacco: Never Assessed Sex Assigned at Date Recorded Not on file documented as of this encounter Plan of Treatment Not on filedocumented as of this encounter Visit Diagnoses Not on filedocumented in this encounter
--- OUTSIDE RECORDS SUMMARY | 2022-04-29 12:19 | XMS_ITS | Encounter Summary ---
:[address] Organization [facility] Address [address] [place] [address] Care Team Providers Name Role Phone Unavailable Primary Care Provider Unavailable Encounter Details Date Type Department Care Team Description 11/13/2012 Hospital Encounter HX [facility] ME David Bustamante M.D. Social History Tobacco Use Types Packs/Day Years Used Date Smoking Tobacco: Never Assessed Sex Assigned at Date Recorded Not on file documented as of this encounter Last Filed Vital Signs Vital Sign Reading Time Taken Comments Blood Pressure - - Pulse - - Temperature - - Respiratory Rate - - Oxygen Saturation - - Inhaled Oxygen Concentration - - Weight 33.2 kg (73 lb 3.1 oz) 11/13/2012 5:12 PM CDT Height 134 cm (4' 4.76) 11/13/2012 5:12 PM CDT Body Mass Index 18.49 11/13/2012 5:12 PM CDT Body Mass Index Percentile 66.99 % 11/13/2012 5:12 PM CD T Growth Chart: [facility] (Girls, 2-20 Years) documented in this encounter Medications at Time of Discharge Medication Sig Dispensed Refills Start Date End Date acetaminophen (TYLENOL) 500 Take by mouth as 0 mg capsule needed. documented as of this encounter Progress Notes David Bustamante M.D. - 11/13/2012 5:00 PM CDT [id number] CHIEF COMPLAINT/REASON FOR VISIT Graciela is here with her mom. She has had kind of an itchy throat and kind of a touchy stomach. Her ears have been uncomfortable. This started yesterday. She has not had a fever. Mom brings her in becauseshe thinks she might have strep. PHYSICAL EXAMINATION GENERAL: On exam she does not appear ill. There is no skin rash. HEENT: Her tympanic membranes are clear. Pharynx is slightly red. NECK: Neck is supple without lymphadenopathy. LUNGS: Lungs are clear. SKIN: Skin is clear. LABORATORY: Rapid strep is negative. IMPRESSION/REPORT/PLAN Sore throat. PLAN: We will have her treat this symptomatically. If the throat culture does turn positive we will notify them and get her started on an antibiotic. David Bustamante M.D./[facility] Electronically Signed By: DAVID BUSTAMANTE MD On: 11/17/2012 07:50 AM Source: [facility] MHSDOLBEYNONRADSYS Document Id: [id number] documented in this encounter Miscellaneous Notes Miscellaneous - David Bustamante M.D. - 11/17/2012 7:49 AM CDT General Message Document Contains Addenda Addendum by CYNTHIA TURCIOS on 05 December 2012 10:11:21 CDT information sent to the family From: DAVID BUSTAMANTE MD To: CYNTHIA TURCIOS; Sent: 11/17/2012 07:49:46 CDT Subject: General Message Actions: Notify patient of results Please let the family know that her ultrasound showed normal breast tissue. Source: [facility] POWERCHART Document Id: [id number] Miscellaneous - Joan Shelton, D.N.P., C.N.P. - 11/14/2012 12:32 PM CDT General Message Document Contains Addenda Addendum by JOAN SHELTON DNP, BUSINESS SOLUTIONS ANALYST on 14 Nov 2012 17:48:35 CDT completed. Addendum by DIPAK SOLO LPN on 14 Nov 2012 14:42:00 CDT From: DIPAK SOLO LPN To: JOAN SHELTON DNP, FNP; Sent: 11/14/2012 14:42:00 CDT Subject: FW: General Message Will need a note for school tomorrow. Addendum by DIPAK SOLO LPN on 14 Nov 2012 14:40:21 CDT Spoke with hortencia Coppola regarding results. States, understanding and will knot picker cloth medicaiton. From: JOAN SHELTON DNP, FNP To: DIPAK SOLO LPN; Sent: 11/14/2012 12:32:29 CDT ! Subject: General Message Please contact pt's parent and let them know strep culture was positive, antibiotic for amoxicillin 10.5 ml po bid x 10 days sent to [facility], advise to start new toothbrush 24 hours after starting antibiotic in order to prevent reinfection. Advise pt. may return to school after she has been on the an tibiotic for a full 24 hours, thank you. Source: [facility] POWERCHART Document Id: [id number] Miscellaneous - David Bustamante M.D. - 11/13/2012 6:04 PM CDT Ambulatory Depart Summary [address] [address] Visit Information Name: GRACIELA CHAVEZ [facility] Number: [id number] Visit Date: 11/13/2012 18:04:20 Attending Provider: DAVID BUSTAMANTE MD Primary Care Provider: JONI MORALES GRACIELA CHAVEZ has been given the following list of medications: Your Medications It is important to take your medications as directed. Use a pill box or chart to help remind you to take your medications. Please let your doctor or nurse know if you have problems taking your medications. Medication/Strength Dose Route Frequency Indications/Special Instructions/Comments acetaminophen (Tylenol) as directed Oral as needed Attention: If you have any medications at home that are not on this list, DO NOT take them until youcontact your provider for clarification. Additional Information: Source: [facility] Rentlytics Document Id: [id number] Hannah - David Bustamante M.D. - 11/13/2012 6:04 PM CDT Ambulatory Patient Summary [id number] [place] [address] Visit Information Name: GRACIELA CHAVEZ [facility] Number: [id number] Current Date: 11/13/2012 18:04:20 Physicians Attending Provider: DAVID BUSTAMANTE MD Primary Care Provider: JONI MORALES Your Medications Here is a list of your medications. It is important to take your medications as directed. Use a pillbox or chart to help remind you to take your medications. Please let your doctor or nurse know if you have problems taking your medications. Medication/Strength Dose Route Frequency Indications/Special Instructions/Comments acetaminophen (Tylenol) as directed Oral as needed Attention: If you have any medications at home that are not on this list, DO NOT take them until youcontact your provider for clarification. Your Allergies & Intolerances Substance Reaction Symptoms Category Comments Strawberries Drug Your Problem List Problem Status Onset Comments No current problems or disability Active Your Upcoming Appointments Date Time Location Reason Provider No Appointments found Your Goals/Additional instructions: Source: [facility] [employer] Document Id: [id number] Laynecellmamta - Cynthia Turcios, L.P.N. - 11/13/2012 5:12 PM CDT Pediatric Picu Nurse Intake/History Pediatric Picu Nurse Intake/History Entered On: 11/13/2012 17:14 CDT Performed On: 11/13/2012 17:12 CDT by CYNTHIA TURCIOS Chief Complaint : throat is itchy and stomach and ears hurt started tuesday Temperature Core : 37.3 DegC(Converted to: 99.1 DegF) Apical Heart Rate : 118 /min (HI) Heart Rhythm : Regular Height : 134 cm(Converted to: 4 ft 5 inch(es), 52.76 inch(es)) Actual Weight : 33.2 kg(Converted to: 73 lb 3 oz) Weight Source : Standing scale Dosing Weight Clinic : 33.2 kg Clinic BSA : 1.11 Body Mass Index : 18.49 kg/m2 CYNTHIA TURCIOS - 11/13/2012 17:12 CDT General Info Languages : [place] CYNTHIA TURCIOS 11/13/2012 17:12 CDT Subjective Pain Symptoms : Yes CYNTHIA TURCIOS 11/13/2012 17:12 CDT Pain Pain Assessment Grid Pain 1 Location : Ear CYNTHIA TURCIOS 11/13/2012 17:12 CDT Dependent Habits Tobacco Use/Currently Using : No Exposure to Tobacco Smoke : Care provider denies smoking in home Smoking Status : Never smoker CYNTHIA TURCIOS 11/13/2012 17:12 CDT Caffeine Use Grid Caffeine Use : None CYNTHIA TURCIOS 11/13/2012 17:12 CDT Recreational Drug Use Grid Drug Use : None CYNTHIA TURCIOS 11/13/2012 17:12 CDT Source: [facility] [employer] Document Id: [id number] CDT!30 documented in this encounter Plan of Treatment Not on filedocumented as of this encounter Procedures Procedure Name Priority Date/Time Associated Diagnosis Comme nts RAPID STREP A Routine 11/13/2012 5:35 PM Results for this SCREEN CDT procedure are i n the results section. RAPID STREP A Routine 11/13/2012 5:35 PM Results for this SCREEN CDT procedure are i n the results section. documented in this encounter Results (ABNORMAL) Rapid Strep A Screen (11/13/2012 5:35 PM CDT) [facility] Method Time Signature HXRapid Strep (POSITIVE) POWERCHART Confirmation HXFinal Positive for POWERCHART Group A Strep by culture. Specimen Anatomical Collection Method Collection Time Receive d Time (Source) Location / / Volume Laterality Throat 11/13/2012 5:35 PM 3 5:35 CDT PM CDT David Bustamante M.D. LAB MICROBIOLOGY - GENERAL [place] Performing Organization Address City/State/ZIP Code Phon e Number POWERCHART Rapid Strep A Screen (11/13/2012 5:35 PM CDT) [facility] Method Time Signature HXStrep A POWERCHART Screen Rapid HXFinal Negative for POWERCHART Strep Group A by rapid screen. HXFinal Culture POWERCHART confirmation to follow. Specimen (Source) Anatomical Collection Method Collection Time Re ceived Time Location / / Volume Laterality Throat 11/13/2012 5:35 PM CDT David Bustamante M.D. LAB MICROBIOLOGY - GENERAL [place] Performing Organization Address City/State/ZIP Code Phon e Number POWERCHART documented in this encounter Visit Diagnoses Not on filedocumented in this encounter
--- OUTSIDE RECORDS SUMMARY | 2022-04-29 12:19 | XMS_ITS | Encounter Summary ---
:2000 Author Organization [facility] Address [address] [place] [address] Care Team Providers Name Role Phone Unavailable Primary Care Provider Unavailable Encounter Details Date Type Department Care Team Description 11/12/2010 Hospital Encounter HX [facility] ME Efren Morales P.A.-C. [address] [place] [address] (Wo rk) Social History Tobacco Use Types Packs/Day Years Used Date Smoking Tobacco: Never Assessed Sex Assigned at Date Recorded Not on file documented as of this encounter Last Filed Vital Signs Vital Sign Reading Time Taken Comments Blood Pressure - - Pulse - - Temperature - - Respiratory Rate - - Oxygen Saturation - - Inhaled Oxygen Concentration - - Weight 23.5 kg (51 lb 12.9 oz) 11/12/2010 1:27 PM CDT Height - - Body Mass Index - - documented in this encounter Progress Notes Brunilda Morales - 11/12/2010 12:00 AM CDT [id number] CHIEF COMPLAINT/REASON FOR VISIT This is an 10-year-old female seen today with her mom for concern of possible lice. Mom states that she had has had an itchy scalp for the last several days but it coincided with her having strawberries at home, even though she has a known allergy to strawberries. However, there was information going around at school that there has been several children with lice. Mom just wants to make sure that she does not actually have lice. She has just been itching her head. She has otherwise been feeling fine. They have not seen any evidence of lice, mom just wants to have it checked out. CURRENT MEDICATIONS None. ALLERGIES Allergies to strawberries. PAST MEDICAL/SURGICAL HISTORY Past medical history and surgical history were reviewed in the EMR. VITAL SIGNS Temperature 35.8, heart rate 90, respirations 16, blood pressure 80/52. PHYSICAL EXAMINATION General: She is alert, interactive and cooperative. Appears to be well-nourished, well-hydrated, in no acute distress. Head is normocephalic, atraumatic. On inspection of her scalp, I went through her hair quite thoroughly and do not see any evidence of live lice bugs. I did detect maybe one or two nits located several centimeters from the root of the hair. I showed these to mom and mom was able to remove them. IMPRESSION/REPORT/PLAN Itchy scalp. PLAN: I reassured mom that it is most likely a reaction to the strawberries. I reassured her that she does not have an active lice infection at this time. I would not recommend treating her. I would recommend to mom that she thoroughly go through her hair on a daily basis and physically remove any nits that she may find. If she should notice any live insects, I would recommend that she treat with [id number] Rid or Nix. Call or return for any other questions or concerns. PATIENT EDUCATION: Ready to learn No apparent learning barriers were identified Learning preferences include listening Explained diagnosis and treatment plan Patient/Child/Caregiver expressed understanding of the content Brunilda Morales P.A.-C /nan Electronically Signed By: BRUNILDA MORALES On: 11/12/2010 06:59 Source: [facility] MHSDOLBEYNONRADSYS Document Id: [id number] documented in this encounter Miscellaneous Notes Miscellaneous - Brunilda Morales - 11/12/2010 4:19 PM CDT Ambulatory Patient Summary [facility] - [address] [id number] Visit Information Name: KRISTEN CHAVEZ Current Date: 11/12/2010 16:19:48 Primary Care Provider: BRUNILDA MORALES Your Medications Here is a list of your medications. It is important to take your medications as directed. Use a pillbox or chart to help remind you to take your medications. Please let your doctor or nurse know if you have problems taking your medications. Medication/Strength Dose Route Frequency Indications/Special Instructions/Comments No Medications found Your Allergies & Intolerances Substance Reaction Symptoms Category Comments Strawberries Drug Your Problem List Problem Status Onset Comments Pneumonia Active unknown date of onset Your Recommendations We want to make sure you get the tests, immunizations, and guidance you need to stay healthy. Here is a customized list of recommendations, based on information we have in your medical record. Your doctor may have additional recommendations for you, based on your personal medical history and risk factors. You can help us by calling us to make an appointment when you are due for your tests. Additional information regarding recommendations: Test/Treatment Last Done Next Due Additional Information No Health Maintenance records were found Your Upcoming Appointments Date Time Location Reason Provider No Appointments found Your Goals/Additional instructions: Source: Uni2 Document Id: [id number] Hannah - Brunilda Morales - 11/12/2010 4:19 PM CDT Ambulatory Depart Summary [facility] - [address] [address] Visit Information Name: SCOTTKRISTEN ATMERA Current Date: 11/12/2010 16:19:48 Primary Care Provider: BRUNILDA MORALES SCOTTKRISTEN has been given the following list of medications: Your Medications It is important to take your medications as directed. Use a pill box or chart to help remind you to take your medications. Please let your doctor or nurse know if you have problems taking your medications. Medication/Strength Dose Route Frequency Indications/Special Instructions/Comments No Medications found Additional Information: Yes - Current list of reconciled medications is provided and explained to the patient and/or family, guardian/caregiver. Source: Uni2 Document Id: [id number] Miscellaneous - Dipak You, L.P.N. - 11/12/2010 1:27 PM CDT Pediatric Violent Crimes Detective Intake/History Pediatric Violent Crimes Detective Intake/History Entered On: 11/12/2010 13:31 CDT Performed On: 11/12/2010 13:27 CDT by DIPAK YOU LPN Intake Chief Complaint: School thinks she has head lice, At strawberries, head bumpy Temperature Core: 35.8C(Converted to: 96.4DegF) (LOW) Peripheral Pulse Rate: 92/min Respiratory Rate: 16/min Systolic Blood Pressure: 80mmHg (<LLOW) Diastolic Blood Pressure: 52mmHg NIBP Mean: 61mmHg BP Location: Right upper extremity Heart Rhythm: Regular Actual Weight: 23.500kg(Converted to: 51lb 13oz) Weight Source: Standing scale Dosing Weight Clinic: 23.50kg DIPAK YOU LPN - 11/12/2010 13:27 CDT Subjective Pain Symptoms: No DIAPK YOU LPN - 11/12/2010 13:27 CDT Dependent Habits Tobacco Use/Currently Using: No Tobacco Use/Last 12 months: No Alcohol Use: No DIPAK YOU LPN - 11/12/2010 13:27 CDT Caffeine Use Grid Caffeine Use: None DIPAK YOU LPN - 11/12/2010 13:27 CDT Allergy Allergies (Active) NKA Estimated Onset Date: Unspecified ; Created By: ELIZABETH VAZQUEZ LPN; Reaction Status: Active ; Category: Drug ; Substance: NKA ; Type: Allergy ; Updated By: ELIZAEBTH VAZQUEZ LPN; Reviewed Date: 11/12/2010 11:57 CDT Source: [facility] POWERCHART Document Id: [id number] CDT!23 documented in this encounter Plan of Treatment Not on filedocumented as of this encounter Visit Diagnoses Not on filedocumented in this encounter
--- OUTSIDE RECORDS SUMMARY | 2022-04-29 12:19 | XMS_ITS | Encounter Summary ---
:2002 Author Organization [facility] Address [address] [place] [address] Care Team Providers Name Role Phone Unavailable Primary Care Provider Unavailable Encounter Details Date Type Department Care Team Description 08/15/2009 Hospital Encounter HX [facility] Ramon Alcala, INPT/OBSRV M.D. [address] [phone] (Wo rk) Social History Tobacco Use Types Packs/Day Years Used Date Smoking Tobacco: Never Assessed Sex Assigned at Date Recorded Not on file documented as of this encounter Plan of Treatment Not on filedocumented as of this encounter Visit Diagnoses Not on filedocumented in this encounter
--- OUTSIDE RECORDS SUMMARY | 2022-04-29 12:19 | XMS_ITS | Encounter Summary ---
:2002 Author Organization [facility] Address [address] [place] [address] Care Team Providers Name Role Phone Unavailable Primary Care Provider Unavailable Encounter Details Date Type Department Care Team Description 2002 - Hospital Encounter HX [facility]0 NURSERY 2002 Social History Tobacco Use Types Packs/Day Years Used Date Smoking Tobacco: Never Assessed Sex Assigned at Date Recorded Not on file documented as of this encounter Plan of Treatment Not on filedocumented as of this encounter Visit Diagnoses Not on filedocumented in this encounter
--- OUTSIDE RECORDS SUMMARY | 2022-04-29 12:19 | XMS_ITS | Encounter Summary ---
:[address] [facility] Address [address] [place] [address] Care Team Providers Name Role Phone Unavailable Primary Care Provider Unavailable Encounter Details Date Type Department Care Team Description 05/16/2013 Hospital Encounter HX [facility] Rodney Ryan M.D. [address] [phone] (Wo rk) Social History Tobacco Use Types Packs/Day Years Used Date Smoking Tobacco: Never Assessed Sex Assigned at Date Recorded Not on file documented as of this encounter Last Filed Vital Signs Vital Sign Reading Time Taken Comments Blood Pressure - - Pulse - - Temperature - - Respiratory Rate - - Oxygen Saturation - - Inhaled Oxygen Concentration - - Weight 35.6 kg (78 lb 7.7 oz) 05/16/2013 9:32 AM WOOD CABINETMAKER Height - - Body Mass Index - - documented in this encounter Medications at Time of Discharge Medication Sig Dispensed Refills Start Date End Date acetaminophen (TYLENOL) 500 Take by mouth as 0 mg capsule needed. documented as of this encounter Miscellaneous Notes Miscellaneous - Cal Ivy, L.P.N. - 05/16/2013 9:32 AM CST Pediatric Welfare Director Intake/History Pediatric Welfare Director Intake/History Entered On: 05/16/2013 9:34 WOOD CABINETMAKER Performed On: 05/16/2013 9:32 WOOD CABINETMAKER by CAL IVY LPN Intake Chief Complaint : uri Temperature Core : 36.4 DegC(Converted to: 97.5 DegF) (LOW) Peripheral Pulse Rate : 80 /min Respiratory Rate : 18 /min Heart Rhythm : Regular Actual Weight : 35.6 kg(Converted to: 78 lb 8 oz) Weight Source : Standing scale Dosing Weight Clinic : 35.6 kg CAL IVY [facility] - 05/16/2013 9:32 WOOD CABINETMAKER General Info Languages : German CAL IVY [facility] - 05/16/2013 9:32 WOOD CABINETMAKER Subjective Pain Symptoms : No CAL IVY [facility] - 05/16/2013 9:32 WOOD CABINETMAKER Dependent Habits Tobacco Use/Currently Using : No Tobacco Use/Last 12 months : No Tobacco Use/Advised to Quit : No Exposure to Tobacco Smoke : Care provider denies smoking in home Smoking Status : Never smoker CAL IVY [facility] 05/16/2013 9:32 WOOD CABINETMAKER Caffeine Use Grid Caffeine Use : Current Type : Soft drinks Frequency : Weekly CAL IVY [facility] 05/16/2013 9:32 WOOD CABINETMAKER Recreational Drug Use Grid Drug Use : None CAL IVY [facility] 05/16/2013 9:32 WOOD CABINETMAKER Source: [facility] POWERCHART Document Id: [id number] WOOD CABINETMAKER!28 CABINETMAKER documented in this encounter Plan of Treatment Not on filedocumented as of this encounter Visit Diagnoses Not on filedocumented in this encounter
--- OUTSIDE RECORDS SUMMARY | 2022-04-29 12:19 | XMS_ITS | Encounter Summary ---
:2002 Author Organization [facility] Address [address] [place] [address] Care Team Providers Name Role Phone Unavailable Primary Care Provider Unavailable Encounter Details Date Type Department Care Team Description 11/28/2008 Hospital Encounter HX [facility] Ramon Alcala, INPT/OBSRV [place] [address] [phone] (Wo rk) Social History Tobacco Use Types Packs/Day Years Used Date Smoking Tobacco: Never Assessed Sex Assigned at Date Recorded Not on file documented as of this encounter Plan of Treatment Not on filedocumented as of this encounter Visit Diagnoses Not on filedocumented in this encounter
--- OUTSIDE RECORDS SUMMARY | 2022-04-29 12:19 | XMS_ITS | Encounter Summary ---
:2002 Author Organization [facility] Address [address] [place] [address] Care Team Providers Name Role Phone Unavailable Primary Care Provider Unavailable Encounter Details Date Type Department Care Team Description 08/28/2015 Hospital Encounter HX [facility] ME Theodore Morrison M.D. [address] [place] [address] (Wo rk) Social History Tobacco Use Types Packs/Day Years Used Date Smoking Tobacco: Never Assessed Sex Assigned at Date Recorded Not on file documented as of this encounter Last Filed Vital Signs Vital Sign Reading Time Taken Comments Blood Pressure - - Pulse - - Temperature - - Respiratory Rate - - Oxygen Saturation - - Inhaled Oxygen Concentration - - Weight 56.4 kg (124 lb 5.4 oz) 08/28/2015 2:43 PM SERVICE ADMINISTRATOR Height - - Body Mass Index - - documented in this encounter Medications at Time of Discharge Medication Sig Dispensed Refills Start Date End Date acetaminophen (TYLENOL) 500 Take by mouth as 0 mg capsule needed. documented as of this encounter Progress Notes Migel Morrison M.D. - 08/28/2015 2:25 PM CST [id number] Ear pain. HISTORY OF PRESENT ILLNESS One to 2 days ago she began with left earlobe pain. The pain has spread more inferiorly down her neck. This morning her dad said the redness and swelling was about the size of his thumb. It has come down a little bit during the day. Perhaps some sweats. No fevers noted. No chills. She was seen by the school nurse who recommended that she get seen. She has had pierced ears for many years but per her dad the earrings will sometimes get dirty. She has had a right earlobe infection in the past which resolved on its own. PHYSICAL EXAMINATION GENERAL: She is in no apparent distress. SKIN: She has an erythematous left earlobe which is swollen. The redness extends down the lateral part of her neck to about 7 cm. The width of the redness is 4 to 5 cm. Redness was marked. IMPRESSION/REPORT/PLAN Cellulitis. Cephalexin for 10 days. Close observation. I pointed out to her father who accompanies her that if the redness extends beyond the marked lines she will need to be seen for consideration of intramuscular Rocephin versus a different oral medication. They state they understand. Ready to learn. No apparent learning barriers were identified. Learning preferences include listening. Explained diagnosis and treatment plan. Patient/Child/Caregiver expressed understanding of the content. Migel Morrison M.D./tal Electronically Signed By: MIGEL MORRISON MD On: 09/01/2015 06:53 AM Source: [facility] MHSDOLBEYNONRADSYS Document Id: [id number] ICE ADMINISTRATOR documented in this encounter Miscellaneous Notes Miscellaneous - Migel Morrison M.D. - 08/28/2015 3:21 PM CST Ambulatory Patient Summary [address] [id number] Visit Information Name: KRISTEN CHAVEZ [facility] Number: [id number] Current Date: 08/28/2015 15:21:27 Physicians Attending Provider: MIGEL MORRISON MD Primary Care Provider: CONCHIS MORALES MEDICAL RESEARCH SCIENTIST KRISTEN CHAVEZ has been given the following list of follow-up instructions, medication list, and patient education materials: Follow-up Instructions Your Medications Here is a list of your medications. It is important to take your medications as directed. Use a pillbox or chart to help remind you to take your medications. Please let your doctor or nurse know if you have problems taking your medications. Medication/Strength How to Take Indications/Special Instructions/Comments/Notes for Patient Medication Changes/Routing acetaminophen (Tylenol) as directed, Oral, as needed cephalexin (cephalexin 500 mg oral capsule) 1 cap, Oral, four times a day x 10 day(s) [facility] [address] fluticasone nasal (Flonase 50 mcg/inh nasal spray) 2 Mesquite(s), Nostrils(Both), once a day Stop Taking the Following Medications: Medication list as of 08-28-15 15:21 Attention: If you have any medications at home that are not on this list, DO NOT take them until youcontact your provider for clarification. Give a copy of your medication list to your primary care provider. Update your medication list any time medications or doses are changed and carry your medication list at all times in case of emergency. Electronically Signed By: MIGEL MORRISON MD Signed On:28-AUG-2015 15:21:22 Your Allergies & Intolerances Substance Reaction Symptoms Category Comments Strawberries Drug Your Problem List Problem Status Onset Comments No Chronic Problems Active Your Upcoming Appointments Date Time Location Provider No Appointments found Attention: Contact your local Clinic if further appointment detail needed. Consider Using Patient Online Services Patient Online Services is a secure online and Mobile application that lets you: ?? View lab and test results ?? View portions of your medical record including clinical notes, immunizations and discharge summaries ?? Request an appointment or medication refill ?? Review your appointment schedule ?? Send secure messages to your care team Its easy to create an account if you dont have one. Go to [email or web address] and click on Create Your Account. Then, follow the directions to complete the online form. Youll be asked for your [facility] number which you can find at the top of this document. Your Goals/Additional instructions: Source: [facility] POWERCHART Document Id: [id number] ICE ADMINISTRATOR Miscellaneous - Migel Morrison M.D. - 08/28/2015 3:21 PM CST Ambulatory Discharge Medication List [place] - [address] [id number] Visit Information Name: KRISTEN CHAVEZ [facility] Number: [id number] Visit Date: 08/28/2015 15:21:26 Attending Provider: MIGEL MORRISON MD Primary Care Provider: CONCHIS MORALES MEDICAL RESEARCH SCIENTIST KRISTEN CHAVEZ has been given the following list of medications: Your Medications It is important to take your medications as directed. Use a pill box or chart to help remind you to take your medications. Please let your doctor or nurse know if you have problems taking your medications. Medication/Strength How to Take Indications/Special Instructions/Comments/Notes for Patient Medication Changes/Routing acetaminophen (Tylenol) as directed, Oral, as needed cephalexin (cephalexin 500 mg oral capsule) 1 cap, Oral, four times a day x 10 day(s) [facility] [address] [id number] fluticasone nasal (Flonase 50 mcg/inh nasal spray) 2 Mesquite(s), Nostrils(Both), once a day Stop Taking the Following Medications: Medication list as of 08-28-15 15:21 Attention: If you have any medications at home that are not on this list, DO NOT take them until youcontact your provider for clarification. Give a copy of your medication list to your primary care provider. Update your medication list any time medications or doses are changed and carry your medication list at all times in case of emergency. Electronically Signed By: MIGEL MORRISON MD Signed On:28-AUG-2015 15:21:22 Additional Information: Source: [facility] POWERCHART Document Id: [id number] ICE ADMINISTRATOR Miscellaneous - Migel Morrison M.D. - 08/28/2015 3:08 PM CST School Excuse 28 August 2015 KRISTEN CHAVEZ [id number] [facility] [address] Dear KRISTEN CHAVEZ, You were examined in my office on: 08/26/2015 To return to school today: ( _ ) Yes ( x ) No To return to regular activity: ( x ) Yes ( _ ) No Notes: _ Sincerely, MIGEL MORRISON [address] [place] [id number] Electronic Signature Electronically Signed By: MIGEL MORRISON MD On: 28 August 2015 This document has images extracted. Source: [facility] POWERCHART Document Id: [id number] Miscellaneous - Cal Ivy, L.P.N. - 08/28/2015 2:43 PM CST Pediatric Grassland Conservationist Intake/History Pediatric Grassland Conservationist Intake/History Entered On: 08/28/2015 14:49 SERVICE ADMINISTRATOR Performed On: 08/28/2015 14:43 SERVICE ADMINISTRATOR by CAL IVY LPN Intake Chief Complaint : Left ear/neck pain Onset of Symptoms : 24 hours Temperature Core : 37.5 DegC(Converted to: 99.5 DegF) Peripheral Pulse Rate : 82 /min Respiratory Rate : 18 /min Heart Rhythm : Regular Systolic Blood Pressure : 79 mmHg (<LLOW) Diastolic Blood Pressure : 61 mmHg NIBP Mean : 67 mmHg BP Location : Left upper extremity Blood Pressure Cuff Size : Regular Actual Weight : 56.4 kg(Converted to: 124 lb 5 oz) Weight Source : Standing scale Dosing Weight Clinic : 56.4 kg CAL IVY LPN - 08/28/2015 14:43 SERVICE ADMINISTRATOR General Info Preferred Name : Kristen Languages : Bangladeshi Is Patient Female and 13-50 no hysterectomy : Yes Status : Patient denies Are you ? : No CAL IVY LPN - 08/28/2015 14:43 SERVICE ADMINISTRATOR Subjective Pain Symptoms : Yes CAL IVY LPN - 08/28/2015 14:43 SERVICE ADMINISTRATOR Pain Scale Pain Scale Verbal 0-10 : Open CAL IVY LPN - 08/28/2015 14:43 SERVICE ADMINISTRATOR Pain Pain Assessment Grid Pain 1 Location : Ear Laterality : Left Intensity : 7 Acceptable Intensity : 0 CAL IVY LPN - 08/28/2015 14:43 SERVICE ADMINISTRATOR Dependent Habits Exposure to Tobacco Smoke : Care provider denies smoking in home Smoking Status : Never smoker Tobacco 2A : No Tobacco Use/Currently Using : No Tobacco Use/Last 30 Days : No Tobacco Use/Last 12 months : No CAL IVY VALIDATION ENGINEER - 08/28/2015 14:43 SERVICE ADMINISTRATOR Caffeine Use Grid Caffeine Use : Current Type : Soft drinks Frequency : Weekly CAL IVY VALIDATION ENGINEER - 08/28/2015 14:43 SERVICE ADMINISTRATOR Recreational Drug Use Grid Drug Use : None CAL IVY LPN - 08/28/2015 14:43 SERVICE ADMINISTRATOR Source: [facility] [employer] Document Id: [id number] SERVICE ADMINISTRATOR!48 ICE ADMINISTRATOR documented in this encounter Plan of Treatment Not on filedocumented as of this encounter Visit Diagnoses Not on filedocumented in this encounter
--- OUTSIDE RECORDS SUMMARY | 2022-04-29 12:19 | XMS_ITS | Clinical Summary ---
:[address] [facility] Address [address] [place] [address] Care Team Providers Name Role Phone Rebekah Nguyen MD Primary Care Provider Encounters Date Type Specialty Care Team Description 02/03/2022 Immunization Family Medicine 02/01/2022 Immunization Family Medicine Health exami nation of defined subpopulation ( Primary Dx) 01/27/2022 Immunization Family Medicine from Last 3 Months Immunizations Name Administration Dates Next Due DTaP 2002, 2002, 2002 DTaP / Hib 09/14/2003 DTaP, Unspecified 2002, 2002, 2002 H1N1 All Forms 08/15/2009 H1N1 Inj 10/01/2009 HPV 9-Valent 09/24/2015 HPV, Quadrivalent 10/31/2014 Hep A, 2 Dose 09/24/2015, 10/31/2014 Hep B / HiB 2002, 2002 Hep B, Adolescent or Pediatric 2002 IPV 03/07/2008, 2002, 2002, 2002 Influenza 6mo-49yrs Quad Preservative 04/19/2018, 05/20/2017 , 05/17/2016 Free IM Influenza TIV (IM) 05/17/2016, 05/12/2012 Influenza, Unspecified 06/13/2015, 04/16/2013, 05/12/2012, 04/12/2011, 08/15/2009 MMR 03/07/2008, 03/26/2003 Meningococcal Conjugate 04/19/2018 Meningococcal, Unspecified 10/31/2014 PPD Test 02/01/2022, 01/25/2022 Pneumococcal Conjugate 2002, 2002, 2002 Tdap 03/22/2013 Varicella 03/07/2008, 03/26/2003 Social History Tobacco Use Types Packs/Day Years Used Date Never Assessed Sex Assigned at Date Recorded Not on file Last Filed Vital Signs Vital Sign Reading Time Taken Comments Blood Pressure 100/64 05/04/2016 8:13 AM CDT Pulse 72 05/04/2016 8:13 AM CDT Temperature - - Respiratory Rate - - Oxygen Saturation - - Inhaled Oxygen Concentration - - Weight 61.2 kg (134 lb 14.7 oz) 05/04/2016 8:13 AM CDT Height 158 cm (5' 2.21) 05/04/2016 8:13 AM CDT Body Mass Index 24.52 05/04/2016 8:13 AM CDT Plan of Treatment Health Maintenance Due Date Last Done Comments COVID-19 Vaccine (#1) 2002 Chlamydia Screening 12/22/2022 12/22/2021 Pneumococcal Vaccine: Aged Out 2002, No longer eligible based Pediatrics (0 to 5 Years) and 2002, on patient's age to At-Risk Patients (6 to 64 2002 comple te this topic Years) HPV Vaccines Completed 09/24/2015, 10/31/2014 Procedures Procedure Name Priority Date/Time Associated Diagnosis Comme nts TB SKIN TEST Routine 02/03/2022 3:06 PM Health examination of Results for this CDT defined subpopulation proced ure are in the results section. TB SKIN TEST Routine 01/27/2022 12:57 PM Screening-pulmonary T B Results for this CDT procedure are i n the results section. from Last 3 Months Results TB Skin Test (02/03/2022 3:06 PM CDT)Only the most recent of2 resultswithin the time period is included. P athologist Signature TB Skin Test Negative Induration 0 mm Specimen (Source) Anatomical Collection Method Collection Time Re ceived Time Location / / Volume Laterality Other 02/03/2022 3:06 PM CDT Harvinder Ryder MD POINT OF CARE TEST ENTER/TRISH T ORDERABLES from Last 3 Months Insurance Payer Benefit Plan / Subscriber ID Effective Dates Phone Addre ss Type Group [facility] [place] [id number] 2021-Presen [address] [facility] [id number] Care Teams Metal Sprayer Protective Coating Relationship Specialty Start Date End Date Rebekah Nguyen MD PCP - General Family Medicine 01/19/22 [address] [place], [place] [id number]
--- OUTSIDE RECORDS SUMMARY | 2022-04-29 12:19 | XMS_ITS | Encounter Summary ---
:2000 Author Organization [facility] Address [address] [place] [id number] Care Team Providers Name Role Phone Unavailable Primary Care Provider Unavailable Encounter Details Date Type Department Care Team Description 06/13/2015 Hospital Encounter HX [facility] CAM FAMILY ME Neyda Holland, TUBE DRAW HELPER, C.N.P. [address] [place], [place] [address] (Wo rk) Social History Tobacco Use Types [...]
--- OUTSIDE RECORDS SUMMARY | 2022-04-29 12:19 | XMS_ITS | Encounter Summary ---
:2000 Author Organization [facility] Address [address] [place] [id number] Care Team Providers Name Role Phone Unavailable Primary Care Provider Unavailable Encounter Details Date Type Department Care Team Description 06/19/2010 Hospital Encounter HX [facility] CAM INPT/OBSRV Rolanda Ryan M.D. [address] [place] [phone] (Wo rk) Social History Tobacco Use Types Packs/Day Years Used Date Smoking Tobacco: Never Assessed Sex Assigned at Date Recorded Not on file documented as of this encounter Plan of Treatment Not on filedocumented as of this encounter Visit Diagnoses Not on filedocumented in this encounter
--- OUTSIDE RECORDS SUMMARY | 2022-04-29 12:19 | XMS_ITS | Encounter Summary ---
:2000 Author Organization [facility] Address [address] [place] [id number] Care Team Providers Name Role Phone Unavailable Primary Care Provider Unavailable Encounter Details Date Type Department Care Team Description 07/14/2007 Hospital Encounter HX [facility] CAM INPT/OBSRV Yoana Holland, P.APa[place]-Shauna [address] [place] [phone] (Wo rk) Social History Tobacco Use Types Packs/Day Years Used Date Smoking Tobacco: Never Assessed Sex Assigned at Date Recorded Not on file documented as of this encounter Plan of Treatment Not on filedocumented as of this encounter Visit Diagnoses Not on filedocumented in this encounter
--- OUTSIDE RECORDS SUMMARY | 2022-04-29 12:19 | XMS_ITS | Encounter Summary ---
:2000 Author Organization [facility] Address [address] [place] [address] Care Team Providers Name Role Phone Unavailable Primary Care Provider Unavailable Encounter Details Date Type Department Care Team Description 08/10/2011 Hospital Encounter HX [facility] ED Akshat Ryan M.D. [id number] [phone] (Wo rk) Social History Tobacco Use Types Packs/Day Years Used Date Smoking Tobacco: Never Assessed Sex Assigned at Date Recorded Not on file documented as of this encounter Discharge Summaries Glory George R.N. - 08/10/2011 5:05 PM CST ED Discharge Instructions [address] [address] Name: KRISTEN CHAVEZ Date of : 2000 12:00 AM Visit Date: 08/10/2011 3:41 PM Address: [address] [place] [phone] Primary Care Provider: JONI MORALES IMPORTANT: [facility] in [place] would like to thank you for allowing us to assist you with your healthcare needs. The following includes patient education materials and informationregarding your injury/illness. Chief Complaint: Elbow injury - Major; Right arm pain Follow-Up Instructions: With: Address: When: Follow up with primary care provider Within As Needed Comments: With: Address: When: JONI MORALES [address] [place] [phone] Business (1) Within AsNeeded Comments: Patient Education Materials: [id number] SPRAIN:ELBOW A SPRAIN is a tearing of the ligaments that hold a joint together. This may take up to six weeks to fully heal, depending on how severe it is. Moderate to severe sprains are treated with a sling or splint. Minor sprains can be treated without any special support. HOME CARE: 1. Keep your arm elevated to reduce pain and swelling. When sitting or lying down elevate your arm above the level of your heart. You can do this by placing your arm on a pillow that rests on your chest or on a pillow at your side. This is most important during the first 48 hours after injury. 2. Apply an ice pack (ice cubes in a plastic bag, wrapped in a towel) over the injured area for 20 minutes every 1-2 hours the first day. You should continue with ice packs 3-4 times a day for the nexttwo days. Continue the use of ice packs for relief of pain and swelling as needed. 3. If you were given a plaster or fiberglass splint, leave it on as advised, or until seen by your doctor. Keep it dry at all times. Bathe with your splint out of the water, protected with a large plastic bag, rubber-banded at the top end. If a fiberglass splint gets wet, you can dry it with a hair-dryer. Once the splint is removed, moving the elbow through its full range of motion several times a day will prevent stiffness. 4. If you were given a sling only, begin gradual range of motion exercises after the first few days,unless told otherwise. This will prevent stiffness in the elbow. Stop wearing the sling once the pain is better. 5. You may use acetaminophen (Tylenol) or ibuprofen (Motrin, Advil) to control pain, unless another pain medicine was prescribed. [NOTE: If you have chronic liver or kidney disease or ever had a stomach ulcer or GI bleeding, talk with your doctor before using these medicines.] FOLLOW UP with your doctor, or as directed, if not starting to improve in the next five days. [NOTE: If X-rays were taken, they will be reviewed by a radiologist. You will be notified of any newfindings that may affect your care.] GET PROMPT MEDICAL ATTENTION if any of the following occur: ?? The plaster splint becomes wet or soft ?? The fiberglass splint remains wet for more than 24 hours ?? Increased tightness or pain in the elbow Fingers become swollen, cold, blue, numb or tingly ?? [id number] [employer], [address] [place] [address]. All rights reserved. This information is not intended as a substitute for professional medical care. Always follow your healthcare professional's instructions. ED Tests and Procedures: Order Status XR Elbow Right 3 or more views Completed XR Wrist Right 3 or more views Completed Discharge Prescriptions & Home Medications: Medication/Strength Dose Route Frequency Indications/Special Instructions/Comments loratadine (Claritin 10 mg oral tablet) 10 mg Oral once a day as needed for Allergy symptoms acetaminophen (Tylenol) as directed Oral as needed Additional Instructions: Attention: If you have any medications at home not on this list, DO NOT take them until you contact your provider for clarification. Medication Reconciliation: Reconciliation is a process of identifying the most accurate list of all medications a patient is taking - including name, dosage, frequency, and route - and using this list to provide to the patient information about how to take those medications. KRISTEN CHAVEZ or colletteee has reviewed the home medications you have listed with us. Review the following instructions: You have NOT received any prescriptions and you have told us you are not currently taking any home medications You have NOT received any prescriptions. You have been provided a discharge medications list and you may CONTINUE taking your medications as previously prescribed by your regular providers. You have received the listed prescriptions and BEGIN all listed prescriptions as directed. Since you have listed no home medications, please check with your family doctor if you are taking any other medications. You have received the listed prescriptions and BEGIN all listed prescriptions as directed. Youhave been provided a discharge medications list and you may CONTINUE all home medications as previously prescribed by your regular providers. You have received the listed prescriptions and BEGIN all listed prescriptions as directed. Youhave been provided a discharge medications list. The following CHANGES have been made to your medication list; Otherwise, CONTINUE all home medications as previously prescribed by your regular provider. IMPORTANT: We examined and treated you today on an emergency basis only. This was not a substitute for, or an effort to provide, complete medical care. In most cases, you must let your doctor check youagain. Tell your doctor about any new or lasting problems. We cannot recognize and treat all injuries or illnesses in one Emergency Department visit. If you had special tests, such as EKG's or X- rays, we will review them again within 24 hours. We will call you if there are any new suggestions. Please follow the instructions above carefully. If you are being transferred to another facility your followup plan of care will be determined by the receiving facility. If you are a patient that is being discharged from the Emergency Department after receiving narcotics or other medications that may impair your judgment you may be a risk to yourself or others if you operate a motor vehicle. We recommend that you arrange a ride home with a responsible alliance party. ISCOTT JADA RENAE , or responsible alliance party have received this information and my questions have been answered. I have discussed any challenges I see with this plan with the nurse or physician. Patient Signature or Responsible Democrat/Relationship Date/Time Provider Signature Date/Time Medication Reconciliation: Reconciliation is a process of identifying the most accurate list of all medications a patient is taking - including name, dosage, frequency, and route - and using this list to provide to the patient information about how to take those medications. KRISTEN CHAVEZ or designee has reviewed the home medications you have listed with us. Review the following instructions: You have NOT received any prescriptions and you have told us you are not currently taking any home medications You have NOT received any prescriptions. You have been provided a discharge medications list and you may CONTINUE taking your medications as previously prescribed by your regular providers. You have received the listed prescriptions and BEGIN all listed prescriptions as directed. Since you have listed no home medications, please check with your family doctor if you are taking any other medications. You have received the listed prescriptions and BEGIN all listed prescriptions as directed. Youhave been provided a discharge medications list and you may CONTINUE all home medications as previously prescribed by your regular providers. You have received the listed prescriptions and BEGIN all listed prescriptions as directed. Youhave been provided a discharge medications list. The following CHANGES have been made to your medication list; Otherwise, CONTINUE all home medications as previously prescribed by your regular provider. IMPORTANT: We examined and treated you today on an emergency basis only. This was not a substitute for, or an effort to provide, complete medical care. In most cases, you must let your doctor check youagain. Tell your doctor about any new or lasting problems. We cannot recognize and treat all injuries or illnesses in one Emergency Department visit. If you had special tests, such as EKG's or X- rays, we will review them again within 24 hours. We will call you if there are any new suggestions. Please follow the instructions above carefully. If you are being transferred to another facility your followup plan of care will be determined by the receiving facility. If you are a patient that is being discharged from the Emergency Department after receiving narcotics or other medications that may impair your judgment you may be a risk to yourself or others if you operate a motor vehicle. We recommend that you arrange a ride home with a responsible alliance party. SCOTT Elkins JADA RENAE , or responsible alliance party have received this information and my questions have been answered. I have discussed any challenges I see with this plan with the nurse or physician. Patient Signature or Responsible Democrat/Relationship Date/Time Provider Signature Date/Time This document has images extracted. Please consider using [employer] for all your patient education needs. Source: [facility] [employer] Document Id: [id number] AIDE Glory George R.N. - 08/10/2011 5:05 PM CST ED Depart Summary [facility] Emergency Department Clinical Discharge Summary PERSON INFORMATION Name KRISTEN CHAVEZ Age 11 Years 2000 12:00 AM Sex Female Language Japanese PCP JONI MORALES Marital Status Single Visit Id Visit Reason Elbow injury - Major; Right arm pain Specialty Enc Type Emergency Med Service Emergency Medicine Referred by Track Group [facility] ED Discharge 08/10/2011 5:05 PM Tracking Id [id number] Checkout 08/10/2011 5:05 PM Checkin 08/10/2011 3:41 PM Acuity Dispo Type * Discharged to Home or Self Care Arrival 08/10/2011 3:41 PM Reg Status LOS 000 01:24 Address: [address] [place] [phone] Comment: PROVIDER INFORMATION Provider Role Provider Contact Time KENAN RYAN MD ED Provider 08/10/11 15:49 GLORY GEORGE PSYCHOLOGIST [employer] Nurse 08/10/11 16:44 DIAGNOSIS Elbow injury - Major Comment: PATIENT EDUCATION INFORMATION Instructions: SPRAIN ELBOW Follow up: With: Address: When: Follow up with primary care provider Within As Needed Comments: With: Address: When: JONI MORALES [address] [place] [id number] [facility] () Within AsNeeded Comments: Source: [facility] [employer] Document Id: [id number] AIDE documented in this encounter Medications at Time of Discharge Medication Sig Dispensed Refills Start Date End Date acetaminophen (TYLENOL) 500 Take by mouth as 0 mg capsule needed. documented as of this encounter Nursing Notes Glory George R.N. - 08/10/2011 5:03 PM CST ED Pain Assessment ED Pain Assessment Entered On: 08/10/2011 17:03 CARE AIDE Performed On: 08/10/2011 17:03 CARE AIDE by GLORY GEORGE RN Pain Assessment Pain Symptoms : Yes GLORY GEORGE RN - 08/10/2011 17:03 CARE AIDE Pain Pain Assessment Grid Pain 1 Pain 2 Location : Elbow Wrist GLORY GEORGE RN - 08/10/2011 17:03 CARE AIDE GLORY GEORGE RN - 08/10/2011 17:03 CARE AIDE FLACC Pain Scale : Yes GLORY GEORGE RN - 08/10/2011 17:03 CARE AIDE FLACC Face FLACC : Occasional grimace or frown, withdrawn, disinterested Legs FLACC : Normal position or relaxed Activity FLACC : Lying quietly, normal position, moves easily Cry FLACC : Moans or whimpers, occasional complaint Consolabillity FLACC : Content, relaxed FLACC Pain Scale Score : 2 GLORY GEORGE RN - 08/10/2011 17:03 CARE AIDE [facility] Document Id: [id number] CARE AIDE!17 AIDE Glory George R.N. - 08/10/2011 3:57 PM CST ED Primary Assessment ED Primary Assessment Entered On: 08/10/2011 16:02 CARE AIDE Performed On: 08/10/2011 15:57 CARE AIDE by GLORY GEORGE RN Reason For Visit Problems(Active) Pneumonia Name of Problem: Pneumonia ; Onset Date: 2008 ; Recorder: ELIZABETH VAZQUEZ LPN; Confirmation: Confirmed ; Classification: Nursing ; Code: 1231 ; Contributor System: [employer] ; Last Updated: 11/20/2010 7:38 CDT ; Life Cycle Date: 11/12/2010 ; Life Cycle Status: Active ; Responsible Provider: ELIZABETH VAZQUEZ LPN; Vocabulary: ICD-9-CM ; Comments: 11/12/2010 13:31 - DIPAK SOLO LPNunknowjeff date of onset Diagnoses(Active) Elbow injury - Major Date: 08/10/2011 ; Diagnosis Type: Discharge ; Confirmation: Confirmed ; Clinical Dx: Elbow injury - Major ; Classification: Medical ; Clinical Service: Non-Specified ; Code: PNED ; Probability: 0 ; Ranking: Primary ; Diagnosis Code: [id number] Elbow injury - Major Date: 08/10/2011 ; Diagnosis Type: Reason For Visit ; Confirmation: Confirmed ;Clinical Dx: Elbow injury - Major ; Classification: Medical ; Clinical Service: Emergency medicine ;Code: PNED ; Probability: 0 ; Diagnosis Code: [id number] Triage Chief Complaint Description : 11 year old female patient admitted with wrist and elbow pain. She slipped on the ice and used her hand to stop her fall, but did hit her elbow on the ice. Information Given By : Mother Accompanied By : Mother, Sibling Mode of Arrival ED : Private vehicle Track : Medical Languages : Japanese GLORY GEORGE RN - 08/10/2011 15:57 CARE AIDE Pain Assessment Pain Symptoms : Yes GLORY GEORGE RN - 08/10/2011 15:57 CARE AIDE Pain Pain Assessment Grid Pain 1 Pain 2 Location : Elbow Wrist Laterality : Right Right GLORY GEORGE RN - 08/10/2011 15:57 CARE AIDE GLORY GEORGE RN - 08/10/2011 15:57 CARE AIDE FLACC Pain Scale : Yes GLORY GEORGE RN - 08/10/2011 15:57 CARE AIDE FLACC Face FLACC : Occasional grimace or frown, withdrawn, disinterested Legs FLACC : Uneasy, restless, tense Activity FLACC : Squirming, shifting back and forth, tense Cry FLACC : Moans or whimpers, occasional complaint Consolabillity FLACC : Reassured by occasional touching, hugging or being talked to, distractable FLACC Pain Scale Score : 5 GLORY GEORGE RN - 08/10/2011 15:57 CARE AIDE ED Physician Notification Time ED Physician Notification Time : 08/10/2011 15:30 CARE AIDE GLORY GEORGE RN - 08/10/2011 15:57 CARE AIDE Allergy Allergies (Active) Strawberries Estimated Onset Date: Unspecified ; Created By: ELIZABETH VAZQUEZ LPN; Reaction Status: Active ; Category: Drug ; Substance: Strawberries ; Type: Allergy ; Updated By: ELIZABETH VAZQUEZ LPN; Reviewed Date: 05/13/2011 17:42 CARE AIDE Immunizations Immunizations Current : Yes Last Tetanus : < 5 years Influenza : Last year GLORY GEORGE RN - 08/10/2011 15:57 CARE AIDE Respiratory Airway : Patent Respirations : Unlabored Respiratory Pattern : Regular GLORY GEORGE RN - 08/10/2011 15:57 CARE AIDE Cardiovascular Heart Rhythm : Regular Skin Color : Normal for ethnicity Skin Description : Dry Skin Temperature : Warm GLORY GEORGE RN - 08/10/2011 15:57 CARE AIDE Neurological Level of Consciousness : Alert Orientation : Oriented x 3 Characteristics of Speech : Appropriate for age GLORY GEORGE RN - 08/10/2011 15:57 CARE AIDE ED Psychosocial Affect/Behavior : Calm, Cooperative, Appropriate Domestic Abuse Concerns : None GLORY GEORGE RN - 08/10/2011 15:57 CARE AIDE Gastrointestinal Nutrition ED : Adequate GLORY GEORGE RN - 08/10/2011 15:57 CARE AIDE Musculoskeletal Fall Prevention Education Provided : Yes GLORY GEORGE RN - 08/10/2011 15:57 CARE AIDE Social Habits Tobacco Use/Currently Using : No Smoking Status : Never smoker GLORY GEORGE RN - 08/10/2011 15:57 CARE AIDE Recreational Drug Use Grid Drug Use : None GLORY GEORGE RN - 08/10/2011 15:57 CARE AIDE Source: [facility] [employer] Document Id: [id number] CARE AIDE!58 AIDE documented in this encounter ED Notes Kenan Ryan M.D. - 08/10/2011 5:03 PM CST Elbow injury - Major Patient: KRISTEN CHAVEZ Age: 11 years Sex: Female : 2000 Author: KENAN RYAN MD Attachments: None Basic Information Time seen: Date 08/10/2011, Immediately upon arrival. History source: Patient, mother. Arrival mode: Private vehicle, walking. History limitation: None. Additional information:: Chief Complaint from Nursing Triage Note : Chief Complaint Description, 08/10/2011 15:57 CARE AIDE Chief Complaint Description 11 year old female patient admitted with wrist and elbow pain. She slipped on the ice and used her hand to stop her fall, but did hit her elbow on the ice. Just fell on Ice today, square onto Rt arm. elbow and wrist hurt. No LOC or head trauma. Review of Systems Constitutional symptoms: no fever no chills, no sweats, no weakness. Skin symptoms: no jaundice no rash, no pruritus. Eye symptoms: no recent vision problems ENMT symptoms: no ear pain no sore throat. Respiratory symptoms: no hemoptysis no stridor. Cardiovascular symptoms: no chest pain no palpitations, no tachycardia, no diaphoresis. Gastrointestinal symptoms: no abdominal pain no nausea, no vomiting, no diarrhea. Genitourinary symptoms: no dysuria Musculoskeletal symptoms: Joint pain, elbow hurts. Neurologic symptoms: no altered level of consciousness no tingling. Endocrine symptoms: no polyuria no polyphagia. Hematologic/Lymphatic symptoms: bleeding tendency negative no swollen nodes. Allergy/immunologic symptoms: no impaired immunity Additional review of systems information:All other systems reviewed and otherwise negative. Health Status Allergies: . Allergic Reactions (All) Severity not Documented Strawberries- No reactions were documented. Canceled/Inactive Reactions (All) NKA Medications: . Prescriptions and Home Medications acetaminophen (Tylenol), as directed, PO, PRN loratadine (Claritin 10 mg oral tablet), 10 mg, 1 tab(s), PO, Daily, 90 tab(s), PRN: Allergy symptoms Past Medical/ Family/ Social History Medical history: Medical history, No active or resolved past medical history items have been selected or recorded.pneumonia- resolved. Surgical history: Surgical history. No active procedure history items have been selected or recorded. Family history: Family history, No family history items have been selected or recorded.mother with chronic pain , fibromyalgia, migraine headaches. Social history: Alcohol use: Denies, Tobacco use: Denies, Drug use: Denies, Family/social situation:Intact family. Problem list: . All Problems Pneumonia / 486 / Confirmed unknown date of onset Physical Examination Vital signs: Oxygen saturation. General: Alert. no acute distress. Skin: Warm. dry. intact. Head: Normocephalic. atraumatic. Eye: Pupils are equal, round and reactive to light. normal conjunctiva. Cardiovascular: Regular rate and rhythm. No murmur. Respiratory: Lungs are clear to auscultation Gastrointestinal: Soft. Nontender. Musculoskeletal: Proximal upper extremity: right, elbow, tenderness and swelling, no erythema. Distal upper extremity: wrist and tenderness. Neurological: Alert and oriented to person, place, time, and situation. No focal neurological deficit observed. CN II-XII intact. normal sensory observed. normal motor observed. normal speech observed. Psychiatric: Cooperative Medical Decision Making Differential Diagnosis:Fracture, sprain, contusion, dislocation. Documents reviewed:Emergency department nurses' notes. Orders Reexamination/ Reevaluation Re-examination/Re-evaluation:Course Improving, Pain status Decreased. Impression and Plan Discharge plan Condition: Stable. Dispositioned: To home. Counseled: Patient, Regarding diagnosis, Regarding diagnostic results, Regarding treatment plan, Regarding prescription, Patient indicated understanding of instructions. Electronically Signed By: KENAN RYAN MD On: 08/19/2011 11:24 AM Source: [employer] Document Id: [id number] AIDE Glory George R.N. - 08/10/2011 5:02 PM CST ED Disposition Summary ED Disposition Summary Entered On: 08/10/2011 17:03 CARE AIDE Performed On: 08/10/2011 17:02 CARE AIDE by GLORY GEORGE RN ED Disposition Summary Accompanied By : Mother, Sibling Mode of Discharge : Ambulatory Transportation : Private vehicle Printed Discharge Instructions Given to Patient : Yes GLORY GEORGE RN - 08/10/2011 17:02 CARE AIDE Source: [employer] Document Id: [id number] CARE AIDE!6 AIDE Glory George R.N. - 08/10/2011 4:55 PM CST ED Treatments and Procedures ED Treatments and Procedures Entered On: 08/10/2011 16:58 CARE AIDE Performed On: 08/10/2011 16:55 CARE AIDE by GLORY GEORGE RN Orthopedic Tx Orthopedic Treatment Instructions Given Treatment Site : Lower arm Treatment Laterality : Right Treatments Done : Sling applied GLORY GEORGE RN - 08/10/2011 16:55 CARE AIDE Source: [facility] [employer] Document Id: [id number] CARE AIDE!7 AIDE Kenan Ryan M.D. - 08/10/2011 3:50 PM CST Elbow injury - Major Patient: KRISTEN CHAVEZ Age: 11 years Sex: Female : 2000 Author: KENAN RYAN MD Attachments: None Associated Diagnosis: Elbow injury - Major; Elbow sprain; Contusion of the upper extremity Basic Information Time seen: Date 08/10/2011, Immediately upon arrival. History source: Patient, mother. Arrival mode: Private vehicle, walking. History limitation: None. Additional information:: Just fell on Ice today, square onto Rt arm. elbow and wrist hurt. No LOC orhead trauma. History of Present Illness The patient presents with right. The onset was 1 hours ago. The course/duration of symptoms is constant. Type of injury: fall. The location where the incident occurred was at home. Location: Right distal lateral arm elbow wrist. Radiating pain: none. The character of symptoms is swelling. The degree of pain is moderate. The degree of swelling is moderate. Exacerbating factors consist of movement. Therelieving factor is position. Risk factors consist of none. The dominant hand is the right hand. Prior episodes: none. Therapy today: none. Associated symptoms: none. Review of Systems Constitutional symptoms: no fever no chills, no sweats, no weakness. Skin symptoms: no jaundice no rash, no pruritus. Eye symptoms: no recent vision problems ENMT symptoms: no ear pain no sore throat. Respiratory symptoms: no hemoptysis no stridor. Cardiovascular symptoms: no chest pain no palpitations, no tachycardia, no diaphoresis. Gastrointestinal symptoms: no abdominal pain no nausea, no vomiting, no diarrhea. Genitourinary symptoms: no dysuria Musculoskeletal symptoms: Joint pain, elbow hurts. Neurologic symptoms: no altered level of consciousness no tingling. Endocrine symptoms: no polyuria no polyphagia. Hematologic/Lymphatic symptoms: bleeding tendency negative no swollen nodes. Allergy/immunologic symptoms: no impaired immunity Additional review of systems information:All other systems reviewed and otherwise negative. Health Status Allergies: . Allergic Reactions (All) Severity not Documented Strawberries- No reactions were documented. Canceled/Inactive Reactions (All) NKA Medications: . Prescriptions and Home Medications acetaminophen (Tylenol), as directed, PO, PRN loratadine (Claritin 10 mg oral tablet), 10 mg, 1 tab(s), PO, Daily, 90 tab(s), PRN: Allergy symptoms Immunizations: Include Immunizations. Immunizations reviewed. Past Medical/ Family/ Social History Medical history: Negative, pneumonia- resolved. Surgical history: Negative. Family history: Family history, No family history items have been selected or recorded.mother with chronic pain , fibromyalgia, migraine headaches. Social history: Alcohol use: Denies, Tobacco use: Denies, Drug use: Denies, Family/social situation:Intact family. Problem list: . All Problems Pneumonia / 486 / Confirmed unknown date of onset Physical Examination Vital signs: Oxygen saturation. General: Alert. no acute distress. Skin: Warm. dry. intact. Head: Normocephalic. atraumatic. Eye: Pupils are equal, round and reactive to light. normal conjunctiva. Cardiovascular: Regular rate and rhythm. No murmur. Respiratory: Lungs are clear to auscultation Gastrointestinal: Soft. Nontender. Musculoskeletal: Proximal upper extremity: right, elbow, tenderness and swelling, no erythema. Distal upper extremity: wrist and tenderness. Neurological: Alert and oriented to person, place, time, and situation. No focal neurological deficit observed. CN II-XII intact. normal sensory observed. normal motor observed. normal speech observed. Psychiatric: Cooperative Medical Decision Making Differential Diagnosis:Fracture, sprain, contusion, dislocation. Documents reviewed:Emergency department nurses' notes. OrdersLaunch Orders, Pharmacy: ibuprofen (Order Processing): 200 mg, PO, OnceLaunch Orders, Radiology: XR Elbow Right 3 or more views (Order Processing): 08/10/2011 15:52 CARE AIDE, blunt decelerating trauma, Stat, Walk, OnceLaunch Orders. Patient Care: Sling Apply-ED (Order Processing): 08/10/2011 16:50 CARE AIDE, Once Reexamination/ Reevaluation Re-examination/Re-evaluation:Vital signs Reviewed Results: results included from flowsheet : (Date Range: 08/09/2011 0:00 CARE AIDE - 08/10/2011 16:10 CARE AIDE), Course Improving, Pain status Decreased. Impression and Plan Diagnosis Elbow sprain (Discharge, Emergency medicine, Medical) Contusion of the upper extremity (Discharge, Emergency medicine, Medical) Discharge plan Condition: Stable. Dispositioned: Time 08/10/2011 17:07:00, To home. Patient was given the following educational materials: SPRAIN ELBOW, SPRAIN ELBOW. Limitations: use as tolerated, sling x 4-5 days , ice and ibuprofen. Follow up with: Follow up with primary care provider Within As Needed; JONI MORALES Within As Needed. Counseled: Patient, Regarding diagnosis, Regarding diagnostic results, Regarding treatment plan, Regarding prescription, Patient indicated understanding of instructions. Electronically Signed By: KENAN RYAN MD On: 08/10/2011 05:08 PM Modified by and Electronically Signed by: KENAN RYAN MD On: 08/10/2011 04:11 PM Source: [facility] Sentrix Document Id: [id number]} AIDE documented in this encounter Miscellaneous Notes Miscellaneous - Glory George R.N. - 08/10/2011 5:03 PM CST Valuables/Belongings Valuables/Belongings Entered On: 08/10/2011 17:03 CARE AIDE Performed On: 08/10/2011 17:03 CARE AIDE by GLORY GEORGE RN Valuables/Belongings Belongings Sent Home With : sent home with pt GLORY GEORGE RN - 08/10/2011 17:03 CARE AIDE Source: [facility] Sentrix Document Id: [id number] CARE AIDE!3 AIDE Miscellaneous - Glory George R.N. - 08/10/2011 3:41 PM CST Facility Charge Ticket Facility Charge Ticket Entered On: 08/10/2011 17:05 CARE AIDE Performed On: 08/10/2011 15:41 CARE AIDE by GLORY GEORGE RN Facility Charge TVL Level for Facility Charge Ticket : Level 4 Mode of Arrival ED : Private vehicle [facility] Mode of Arrival Interpreted : Standard [facility] Process Management : None [facility] Order Management : Xray - plain films 30 Minutes Critical Care : No [facility] Nursing Assessment : Triage and 1-2 nursing assessments [facility] Disposition : Discharge [facility] Total Points with Diagnosis Control : 8 [facility] Visit Level : 90875 Level 4 GLORY GEORGE RN - 08/10/2011 17:04 CARE AIDE Chief Complaint 8.50.02 Reason For Visit Category : Trauma ED Chief Complaint Trauma 8.5 : Elbow injury - minor TVL Calc : 8 TVL for Facility Charge Ticket Dx : Level 3 GLORY GEORGE RN - 08/10/2011 17:04 CARE AIDE Source: [facility] POWERCHART Document Id: [id number] CARE AIDE!17 AIDE documented in this encounter Plan of Treatment Not on filedocumented as of this encounter Visit Diagnoses Not on filedocumented in this encounter
--- OUTSIDE RECORDS SUMMARY | 2022-04-29 12:19 | XMS_ITS | Encounter Summary ---
:2002 Author Organization [facility] Address [address] [place] [address] Care Team Providers Name Role Phone Unavailable Primary Care Provider Unavailable Encounter Details Date Type Department Care Team Description 03/10/2010 Hospital Encounter HX [facility] INPT/OBSRV Yoana Holland, P.APa[place]-Shauna [address] [place] [address] (Wo rk) Social History Tobacco Use Types Packs/Day Years Used Date Smoking Tobacco: Never Assessed Sex Assigned at Date Recorded Not on file documented as of this encounter Plan of Treatment Not on filedocumented as of this encounter Visit Diagnoses Not on filedocumented in this encounter
--- OUTSIDE RECORDS SUMMARY | 2022-04-29 12:19 | XMS_ITS | Encounter Summary ---
:2002 Author Organization [facility] Address [address] [place] [address] Care Team Providers Name Role Phone Unavailable Primary Care Provider Unavailable Encounter Details Date Type Department Care Team Description 04/12/2011 Hospital Encounter HX [facility] Erasto Alcala M.D. [address] [place] [phone] (Wo rk) Social History Tobacco Use Types Packs/Day Years Used Date Smoking Tobacco: Never Assessed Sex Assigned at Date Recorded Not on file documented as of this encounter Plan of Treatment Not on filedocumented as of this encounter Visit Diagnoses Not on filedocumented in this encounter
--- OUTSIDE RECORDS SUMMARY | 2022-04-29 12:19 | XMS_ITS | Encounter Summary ---
:2002 Author Organization [facility] Address [address] [place] [address] Care Team Providers Name Role Phone Unavailable Primary Care Provider Unavailable Encounter Details Date Type Department Care Team Description 03/07/2008 Hospital Encounter HX [facility] YOLANDA Ramon Alcala, INPT/OBSRV M.DP[place] [address] [phone] (Wo rk) Social History Tobacco Use Types Packs/Day Years Used Date Smoking Tobacco: Never Assessed Sex Assigned at Date Recorded Not on file documented as of this encounter Plan of Treatment Not on filedocumented as of this encounter Visit Diagnoses Not on filedocumented in this encounter
--- OUTSIDE RECORDS SUMMARY | 2022-04-29 12:19 | XMS_ITS | Encounter Summary ---
:2002 Author Organization [facility] Address [address] [place] [address] Care Team Providers Name Role Phone Unavailable Primary Care Provider Unavailable Encounter Details Date Type Department Care Team Description 07/31/2010 Hospital [facility] Lion Durant M.D. [address] [place] [address] (Wo rk) Social History Tobacco Use Types Packs/Day Years Used Date Smoking Tobacco: Never Assessed Sex Assigned at Date Recorded Not on file documented as of this encounter Plan of Treatment Not on filedocumented as of this encounter Visit Diagnoses Not on filedocumented in this encounter
--- OUTSIDE RECORDS SUMMARY | 2022-04-29 12:19 | XMS_ITS | Encounter Summary ---
:2002 Author Organization [facility] Address [address] [place] [address] Care Team Providers Name Role Phone Unavailable Primary Care Provider Unavailable Encounter Details Date Type Department Care Team Description 04/21/2011 Hospital Encounter HX [facility] ME Efren Morales P.A.-C. [address] [place] [address] (Wo rk) Social History Tobacco [...] - Inhaled Oxygen Concentration - - Weight 24.9 kg (54 lb 14.3 oz) 04/21/2011 9:00 AM CDT Height - - Body Mass Index - - documented in this encounter Medications at Time of Discharge Medication Sig Dispensed Refills Start Date End Date acetaminophen (TYLENOL) 500 Take by mouth as 0 mg capsule needed. documented as of this encounter Progress Notes Brunilda Morales - 04/21/2011 12:00 AM CDT [id number] CHIEF COMPLAINT/REASON FOR VISIT This is a 11-year-old female seen today with her mom concerned of possible strep throat. She states that she started a fever the night before last. She felt very warm. She did have a temperature up to about 101 degrees-102 degrees during the day yesterday. She stayed home from school. She did not have any other specific symptoms yesterday, just an elevated temperature. Starting this morning, she woke up with a sore throat. She states that her left ear is bothering her a little bit. She really has not had any nasal congestion. She has no history of strep as far as they know and no specific exposures. She has not been coughing. CURRENT MEDICATIONS Just Tylenol as needed. ALLERGIES Strawberries. PAST MEDICAL/SURGICAL HISTORY Past medical history and surgical history are reviewed in the EMR. VITAL SIGNS Temperature 36.4, heart rate 80, respirations 20, blood pressure 84/52 weight 24.9 kg. PHYSICAL EXAMINATION GENERAL: She is alert, interactive and cooperative. Appears to be well-nourished, well-hydrated, and in no acute distress. HEENT: Head is normocephalic, atraumatic. Her TMs are slightly dull but there is no erythema. Canals are clear. Sclerae and conjunctive are clear. Nares are non-congested. Oral mucosa is pink and moist. Posterior pharynx is erythematous. Tonsils are a bit enlarged about 2+. No exudate. NECK: Supple. She does have some palpable cervical lymphadenopathy. LUNGS: Lungs sound clear to auscultation bilaterally. No wheezes. HEART: Regular rate and rhythm. LABS: Rapid strep test was negative. IMPRESSION/REPORT/PLAN Pharyngitis. PLAN: She was reassured it is most likely viral. They can continue giving her some ibuprofen or Tylenol to help her feel a bit better. They should return if she is not improving. We will await the culture results. Otherwise call or return for any other questions or concerns. PATIENT EDUCATION: Ready to learn No apparent learning barriers were identified Learning preferences include listening Explained diagnosis and treatment plan Patient/Child/Caregiver expressed understanding of the content Brunilda Morales P.A.-C /nan Electronically Signed By: BRUNILDA MORALES On: 04/29/2011 08:46 AM Source: [facility] MHSDOLBEYNONRADSYS Document Id: [id number] documented in this encounter Miscellaneous Notes Miscellaneous - Brunilda Morales - 04/21/2011 11:23 AM CDT Ambulatory Patient Summary [address] [address] Visit Information Name: SCOTTCIERAHAKEEM PHILIP Current Date: 04/21/2011 11:23:10 Primary Care Provider: BRUNILDA MORALES Your Medications Here is a list of your medications. It is important to take your medications as directed. Use a pillbox or chart to help remind you to take your medications. Please let your doctor or nurse know if you have problems taking your medications. Medication/Strength Dose Route Frequency Indications/Special Instructions/Comments acetaminophen (Tylenol) as directed Oral as needed Your Allergies & Intolerances Substance Reaction Symptoms Category Comments Strawberries Drug Your Problem List Problem Status Onset Comments Pneumonia Active 2009 unknown date of onset Your Recommendations We [...] No Appointments found Your Goals/Additional instructions: Source: [facility] POWERCHART Document Id: [id number] Electronically signed by Nora [facility] Promotions Assistant [id number] at 12/05/2016 4:51 PM CDT Miscellaneous - Brunilda Morales - 04/21/2011 11:23 AM CDT Ambulatory Depart Summary [address] [place] [address] Visit Information Name: SCOTTKRISTEN TAMERA Current Date: 04/21/2011 11:23:09 Primary Care Provider: BRUNILDA MORALES KRISTEN CHAVEZ has been given the following list of medications: Your Medications It is important to take your medications as directed. Use a pill box or chart to help remind you to take your medications. Please let your doctor or nurse know if you have problems taking your medications. Medication/Strength Dose Route Frequency Indications/Special Instructions/Comments acetaminophen (Tylenol) as directed Oral as needed Additional Information: Yes - Current list of reconciled medications is provided and explained to the patient and/or family, guardian/caregiver. Source: [facility] POWERCHART Document Id: [id number] Miscellaneous - Elizabeth Spencer L.P.N. - 04/21/2011 9:00 AM CDT Pediatric Ditcher Intake/History Pediatric Ditcher Intake/History Entered On: 04/21/2011 9:05 CDT Performed On: 04/21/2011 9:00 CDT by ELIZABETH SPENCER LPN Intake Chief Complaint: running fever 2 nights ago 101 with tylenol yesterday glands swollen sore throat Temperature Core: 36.4C(Converted to: 97.5DegF) (LOW) Peripheral Pulse Rate: 80/min Respiratory Rate: 20/min Systolic Blood Pressure: 84mmHg (<LLOW) Diastolic Blood Pressure: 52mmHg NIBP Mean: 63mmHg BP Location: Left upper extremity Heart Rhythm: Regular Actual Weight: 24.900kg(Converted to: 54lb 14oz) Weight Source: Standing scale Dosing Weight Clinic: 24.90kg ELIZABETH SPENCER LPN - 04/21/2011 9:00 CDT Subjective Pain Symptoms: Yes ELIZABETH SPENCER LPN - 04/21/2011 9:00 CDT Pain Pain Assessment Grid Pain 1 Pain 2 Location: Throat Head Laterality: Bilateral Bilateral Intensity: 10 4 ELIZABETH SPENCER LPN - 04/21/2011 9:00 CDT ELIZABETH SPENCER LPN - 04/21/2011 9:00 CDT Dependent Habits Tobacco Use/Currently Using: No Smoking Status: Never smoker Alcohol Use: No ELIZABETH SPENCER LPN - 04/21/2011 9:00 CDT Caffeine Use Grid Caffeine Use: None ELIZABETH SPENCER LPN - 04/21/2011 9:00 CDT Recreational Drug Use Grid Drug Use: None ELIZABETH SPENCER LPN - 04/21/2011 9:00 CDT Allergy Allergies (Active) Strawberries Estimated Onset Date: Unspecified ; Created By: ELIZABETH SPENCER LPN; Reaction Status: Active ; Category: Drug ; Substance: Strawberries ; Type: Allergy ; Updated By: ELIZABETH SPENCER LPN; Reviewed Date: 11/18/2010 13:51 CDT Source: [facility] Subtextual Document Id: [id number] CDT!36 documented in this encounter Plan of Treatment Not on filedocumented as of this encounter Visit Diagnoses Not on filedocumented in this encounter
--- OUTSIDE RECORDS SUMMARY | 2022-04-29 12:19 | XMS_ITS | Encounter Summary ---
:2002 Author Organization [facility] Address [address] [place] [address] Care Team Providers Name Role Phone Unavailable Primary Care Provider Unavailable Encounter Details Date Type Department Care Team Description 10/26/2011 Hospital Encounter HX [facility] ME Mack Willis APRN, C.N.P., D. N.P. [address] [place] [address] (Wo rk) Social History Tobacco [...] - Inhaled Oxygen Concentration - - Weight 27.4 kg (60 lb 6.5 oz) 10/26/2011 11:26 AM CDT Height - - Body Mass Index - - documented in this encounter Medications at Time of Discharge Medication Sig Dispensed Refills Start Date End Date acetaminophen (TYLENOL) 500 Take by mouth as 0 mg capsule needed. documented as of this encounter Progress Notes Mack Willis APRN, C.N.P. - 10/26/2011 12:00 AM CDT [id number] CHIEF COMPLAINT/REASON FOR VISIT Rash. HISTORY OF PRESENT ILLNESS Kristen is a pleasant 11-year-old female who comes in today accompanied by both of her parents with a rash that began yesterday. It seems to kind of come and go. Her dad describes it as a rash being all over her body and at times it seems like it is hypopigmented in the middle, white, causing her some itching. Yesterday she felt like it was in her stomach. Her symptoms now have almost resolved other than on her upper extremities and a bit on her lower extremities. None noted on her trunk. It does seem to respond very well to Benadryl. She does have an allergy does strawberries. She does not recall eating anything new yesterday, but she cannot recall what she ate yesterday either, especially at school on her school tray. Mother and father deny any new soaps, any new detergents, nor any new perfumes or lotions. They did treat their water for some rust about three weeks ago. Also father states she had a tick about three weeks ago that did show a target lesion. She was treated with amoxicillin. She has not had any problems since that time with this. CURRENT MEDICATIONS Please see the EMR. ALLERGIES Please see EMR. SYSTEMS REVIEW She denies any fevers or chills. She denies any nausea or vomiting. VITAL SIGNS Weight is 27.4 kg. Temperature is 36.6. PHYSICAL EXAMINATION GENERAL: The patient appears nondistressed. SKIN: She does have a lacy type rash, very poorly raised on her lower arms and upper thighs bilaterally. They are very faint at this time. I do not see any lesions on her trunk. There is no excoriation noted. Very minimal lesions identified at all. LYMPH: No lymphadenopathy in cervical, supraclavicular or axillary. IMPRESSION/REPORT/PLAN Hives. I did reassure them I believe that this hives related to something that she has either consumed or come in contact with. It was noted today on her exam that her skin was quite dry. The patient states that she does not like using lotion but clearly would make a difference as her skin is quite dry and you can tell it is somewhat sensitive. I did ask mom to use hypoallergenic lotions, but that she should have moisturized skin and that will help be a barrier to any outward chemicals or irritants to her. Also continue with the Benadryl, restart her Claritin daily, and then report if no improvement or any worsening symptoms. #1 Patient Education Ready to learn No apparent learning barriers were identified Learning preferences include listening Explained diagnosis and treatment plan Patient/Child/Caregiver expressed understanding of the content Mack Willis N.P. / Electronically Signed By: MACK WILLIS RN, HEARING SCREEN COORDINATOR On: 10/28/2011 09:55 PM Source: [facility] MHSDOLBEYNONRADSYS Document Id: [id number] documented in this encounter Miscellaneous Notes Miscellaneous - Mack Willis APRN, C.N.P. - 10/26/2011 2:32 PM CDT Ambulatory Patient Summary [id number] [place] [address] Visit Information Name: KRISTEN CHAVEZ Current Date: 10/26/2011 14:32:57 Physicians Attending Provider: MAKC WILLIS RN, HEARING SCREEN COORDINATOR Primary Care Provider: JONI MORALES Your Medications Here is a list of your medications. It is important to take your medications as directed. Use a pillbox or chart to help remind you to take your medications. Please let your doctor or nurse know if you have problems taking your medications. Medication/Strength Dose Route Frequency Indications/Special Instructions/Comments triamcinolone topical (triamcinolone 0.1% topical cream) 1 kaiden Topical three times a day for 14 Days loratadine (Claritin 10 mg oral tablet) 10 [...] Active 2009 unknown date of onset Your Upcoming Appointments Date Time Location Reason Provider No Appointments found Your Goals/Additional instructions: Source: [facility] POWERCHART Document Id: [id number] Miscellaneous - Mack Willis APRN, C.N.P. - 10/26/2011 2:32 PM CDT Ambulatory Depart Summary [id number] [place] [address] Visit Information Name: KRISTEN CHAVEZ Visit Date: 10/26/2011 14:32:56 Attending Provider: MACK WILLIS RN, HEARING SCREEN COORDINATOR Primary Care Provider: JONI MORALES KRISTEN CHAVEZ has been given the following list of medications: Your Medications It is important to take your medications as directed. Use a pill box or chart to help remind you to take your medications. Please let your doctor or nurse know if you have problems taking your medications. Medication/Strength Dose Route Frequency Indications/Special Instructions/Comments triamcinolone topical (triamcinolone 0.1% topical cream) 1 kaiden Topical three times a day for 14 Days loratadine (Claritin 10 mg oral tablet) 10 mg Oral once a day as needed for Allergy symptoms acetaminophen (Tylenol) as directed Oral as needed Attention: If you have any medications at home that are not on this list, DO NOT take them until youcontact your provider for clarification. Additional Information: Source: [facility] POWERCHART Document Id: [id number] Miscellaneous - Dipak You L.P.N. - 10/26/2011 11:26 AM CDT Pediatric Chairman Intake/History Pediatric Chairman Intake/History Entered On: 10/26/2011 11:32 CDT Performed On: 10/26/2011 11:26 CDT by DIPAK YOU SHIRT TURNER Intake Chief Complaint : Blochty rash all over and at times white spot in middle, itches, yesturday felt like it was in my stomach Had a woodtick a month ago with rash and was treated with Amox Temperature Core : 36.6C(Converted to: 97.9DegF) Peripheral Pulse Rate : 98/min Respiratory Rate : 16/min Heart Rhythm : Regular Systolic Blood Pressure : 80mmHg (<LLOW) Diastolic Blood Pressure : 60mmHg NIBP Mean : 67mmHg BP Location : Left upper extremity Blood Pressure Cuff Size : Regular SpO2 : 95% Oxygen Therapy : Room air Actual Weight : 27.4kg(Converted to: 60lb 7oz) Weight Source : Standing scale Dosing Weight Clinic : 27.40kg DIPAK YOU LPN - 10/26/2011 11:26 CDT Subjective Pain Symptoms : No DIPAK YOU LPN - 10/26/2011 11:26 CDT Dependent Habits Tobacco Use/Currently Using : No Tobacco Use/Last 12 months : No Tobacco Use/Advised to Quit : No Exposure to Tobacco Smoke : Care provider denies smoking in home Smoking Status : Never smoker Alcohol Use : No DIPAK YOU LPN - 10/26/2011 11:26 CDT Caffeine Use Grid Caffeine Use : None DIPAK YOU LPN - 10/26/2011 11:26 CDT Recreational Drug Use Grid Drug Use : None DIPAK YOU LPN - 10/26/2011 11:26 CDT Allergy Allergies (Active) Strawberries Estimated Onset Date: Unspecified ; Created By: ELIZABETH VAZQUEZ LPN; Reaction Status: Active ; Category: Drug ; Substance: Strawberries ; Type: Allergy ; Updated By: ELIZABETH VAZQUEZ LPN; Reviewed Date: 09/24/2011 8:33 CDT [facility] Document Id: [id number] CDT!32 documented in this encounter Plan of Treatment Not on filedocumented as of this encounter Visit Diagnoses Not on filedocumented in this encounter
--- OUTSIDE RECORDS SUMMARY | 2022-04-29 12:19 | XMS_ITS | Encounter Summary ---
:2000 Author Organization [facility] Address [address] [place] [address] Care Team Providers Name Role Phone Unavailable Primary Care Provider Unavailable Encounter Details Date Type Department Care Team Description 10/16/2012 Hospital Encounter [facility]X [facility] ME David Bustamante M.D. Social History [...] - Inhaled Oxygen Concentration - - Weight 31.8 kg (70 lb 1.7 oz) 10/16/2012 6:23 PM CDT Height 133 cm (4' 4.36) 10/16/2012 6:23 PM CDT Body Mass Index 17.98 10/16/2012 6:23 PM CDT Body Mass Index Percentile 61.10 % 10/16/2012 6:23 PM CD T Growth Chart: [facility] (Girls, 2-20 Years) documented in this encounter Medications at Time of Discharge Medication Sig Dispensed Refills Start Date End Date acetaminophen (TYLENOL) 500 Take by mouth as 0 mg capsule needed. documented as of this encounter Progress Notes David Bustamante M.D. - 10/16/2012 6:09 PM CDT [id number] CHIEF COMPLAINT/REASON FOR VISIT Kristen is here with her dad. She has felt a lump on the right side of her chest just near the nipple for about 4 days. It has been tender and it feels a little swollen. She has been complaining about it quite a bit. It rubs on her clothes or she bumps it. Dad said he gave her some ibuprofen a couple days ago. She does remember that he gave it to her, so he cannot tell me if it was helpful or not. She is 12. Dad says that her sister had something similar when she was he thinks maybe almost 13, developed some breast tissue on 1 side and then the other, but it was not nearly as tender as what Kristen is complaining of. She denies any trauma. She cannot recall bumping it or running into anything. She has not noticed any bruising. She has not had a fever. PHYSICAL EXAMINATION On exam, she does have what feels like a breast bud under the right nipple. It is it is a little bitto the right of the nipple and it is quite tender to touch. There is no erythema. There is no warmthor bruising. No axillary lymphadenopathy. The left breast there are no lumps or tenderness or her skin changes. IMPRESSION/REPORT/PLAN I think this is a breast bud that is just developing, but it could be a cyst and so we will get an ultrasound to further evaluate this. I did reassure her that there are no signs of any kind of breast cancer. David Bustamante M.D./nan Electronically Signed By: DAVID BUSTAMANTE MD On: 10/17/2012 11:59 AM Source: [facility] MHSDOLBEYNONRADSYS Document Id: [id number] documented in this encounter Nursing Notes Conversion, Historical Provider Ser - 11/01/2012 11:31 AM CDT Referral referral done - it is now [facility] - for pt to have ultrasound of lump in right breast. I called radiology in [place] this am and spoke with Ashlyn. She said they had contacted the father and he was going to get back to them to set the date. They have heard nothing from him so far. Electronically Signed By: MOR REYES LPN On: 11/01/2012 11:39 AM Source: [facility] POWERCHART Document Id: [id number] documented in this encounter Miscellaneous Notes Miscellaneous - Christina Julian L.PPaxtonNPaxton - 10/18/2012 10:01 AM CDT General Message Document Contains Addenda Addendum by DAVID BUSTAMANTE MD on 20 October 2012 07:59:26 CDT From: DAVID BUSTAMANTE MD To: CHRISTINA NAVARRETE LPN; Sent: 10/20/2012 07:59:26 CDT Subject: RE: General Message Thank you From: CHRISTINA NAVARRETE LPN To: DAVID BUSTAMANTE MD; Sent: 10/18/2012 10:01:38 CDT Subject: General Message FYI: Radiology informed me today that they are unable to do a ultrasound soft tissue trunk. I went ahead and d/c order out of our que and printed off ordered and faxed to [facility] to schedule with patient. [facility] will forward results to you. Source: [facility] POWERCHART Document Id: [id number] Miscellaneous - April Turcios L.PPaxtonNPaxton - 10/16/2012 6:23 PM CDT Pediatric Residency Director Intake/History Pediatric Residency Director Intake/History Entered On: 10/16/2012 18:26 CDT Performed On: 10/16/2012 18:23 CDT by APRIL TURCIOS Intake Chief Complaint : sore spot on the rightside of chest felt it 4 days ago Peripheral Pulse Rate : 72 /min Systolic Blood Pressure : 80 mmHg (<LLOW) Diastolic Blood Pressure : 60 mmHg NIBP Mean : 67 mmHg BP Location : Right upper extremity Blood Pressure Cuff Size : Pediatric Height : 133 cm(Converted to: 4 ft 4 inch(es), 52.36 inch(es)) Actual Weight : 31.8 kg(Converted to: 70 lb 2 oz) Weight Source : Standing scale Dosing Weight Clinic : 31.8 kg Clinic BSA : 1.08 Body Mass Index : 17.98 kg/m2 APRIL TURCIOS - 10/16/2012 18:23 CDT General Info Languages : Omani APRIL TURCIOS - 10/16/2012 18:23 CDT Subjective Pain Symptoms : No APRIL TURCIOS - 10/16/2012 18:23 CDT Dependent Habits Tobacco Use/Currently Using : No Exposure to Tobacco Smoke : Care provider denies smoking in home Smoking Status : Never smoker APRIL TURCIOS - 10/16/2012 18:23 CDT Caffeine Use Grid Caffeine Use : None APRIL TURCIOS - 10/16/2012 18:23 CDT Recreational Drug Use Grid Drug Use : None APRIL TURCIOS - 10/16/2012 18:23 CDT Source: [employer] Document Id: [id number] CDT!29 documented in this encounter Plan of Treatment Not on filedocumented as of this encounter Visit Diagnoses Not on filedocumented in this encounter
--- OUTSIDE RECORDS SUMMARY | 2022-04-29 12:19 | XMS_ITS | Encounter Summary ---
:2000 Author Organization [facility] Address [address] [place] [address] Care Team Providers Name Role Phone Unavailable Primary Care Provider Unavailable Encounter Details Date Type Department Care Team Description 06/28/2012 Hospital Encounter [facility] Ye Garcia, CALEB, C.N.P. [address] [place] [phone] (Wo rk) Social History Tobacco Use Types Packs/Day Years Used Date Smoking Tobacco: Never Assessed Sex Assigned at Date Recorded Not on file documented as of this encounter Last Filed Vital Signs Vital Sign Reading Time Taken Comments Blood Pressure - - Pulse - - Temperature - - Respiratory Rate - - Oxygen Saturation - - Inhaled Oxygen Concentration - - Weight 31.1 kg (68 lb 9 oz) 06/28/2012 4:49 PM WINK CUTTER OPERATOR Height - - Body Mass Index - - documented in this encounter Medications at Time of Discharge Medication Sig Dispensed Refills Start Date End Date acetaminophen (TYLENOL) 500 Take by mouth as 0 mg capsule needed. documented as of this encounter Progress Notes Rach Chi, C.N.P. - 06/28/2012 4:21 PM CST CLIN DATE: 06/28/2012 HISTORY OF PRESENT ILLNESS Graciela comes into the clinic today accompanied by her mom with concerns of cold, fever, congestion. Has been present for the past couple weeks. Getting worse in the past couple of days. PAST MEDICAL/SURGICAL HISTORY MEDICAL: History of pneumonia, 2009. CURRENT MEDICATIONS She is on Tylenol p.r.n. ALLERGIES She is allergic to STRAWBERRIES. SYSTEMS REVIEW She complains of having low grade fever. HEAD: Complains of sinus pain, headache. EYES: Denies any visual change, eye drainage. EARS: Denies having any tinnitus, vertigo. NOSE: Green drainage from her nose. THROAT: Complains of slight sore throat. Denies having any significant cough. She states she did have diarrhea last week. Appetite has been fair. VITAL SIGNS Blood pressure 94/58, pulse 84, respirations are 16, temperature is 37.2 degrees C, weight is 31.1 kg. PHYSICAL EXAMINATION GENERAL: A 12-year-old female child. HEENT: Eyes: No conjunctival injection noted. No discharge noted. Ears, TMs intact. No inflammation noted. Left ear is a little bit dull. Nares, turbinates swollen. Green drainage noted. She does have maxillary sinus tenderness bilateral. Throat, postnasal drip is noted. NECK: No lymphadenopathy noted. HEART: Her heart rate is regular. No murmur is noted. LUNGS: Lungs are clear bilateral. IMPRESSION/REPORT/PLAN Sinusitis. Did place her on Zithromax Z-Patrick. Instructed Mom to apply humidity to the air. Have her make sure she keeps drinking plenty of fluids. Take Tylenol or ibuprofen for the discomfort and fever. Follow up if her symptoms are not improving or any other problems develop. JAP:byron Doc#: [id number] cc: Electronically Signed By: RACH CHI On: 07/05/2012 09:52 PM Source: [facility] ISJDICTAPHONESYS Document Id: [id number] CUTTER OPERATOR documented in this encounter Miscellaneous Notes Miscellaneous - Rach Chi C.N.P. - 06/28/2012 5:28 PM CST Ambulatory Patient Summary [facility] [address] [place] [address] Visit Information Name: GRACIELA CHAVEZ [facility] Number: [id number] Current Date: 06/28/2012 17:28:00 Physicians Attending Provider: SANDOR GARCIA Primary Care Provider: JONI MORALES Your Medications Here is a list of your medications. It is important to take your medications as directed. Use a pillbox or chart to help remind you to take your medications. Please let your doctor or nurse know if you have problems taking your medications. Medication/Strength Dose Route Frequency Indications/Special Instructions/Comments azithromycin (Zithromax Z-Patrick 250 mg oral tablet) 2 tablets on day 1, then 1 tablet on days 2-5 Oralas directed for 5 Days acetaminophen (Tylenol) as directed Oral as needed Attention: If you have any medications at home that are not on this list, DO NOT take them until youcontact your provider for clarification. Your Allergies & Intolerances Substance Reaction Symptoms Category Comments Strawberries Drug Your Problem List Problem Status Onset Comments Pneumonia Active 2009 11/12/10 unknown date of onset No current problems or disability Active Your Upcoming Appointments Date Time Location Reason Provider No Appointments found Your Goals/Additional instructions: Source: [facility] POWERCHART Document Id: [id number] CUTTER OPERATOR Miscellaneous - Rach Chi, C.N.P. - 06/28/2012 5:27 PM CST Ambulatory Depart Summary [address] [address] Visit Information Name: GRACIELA CHAVEZ [facility] Number: [id number] Visit Date: 06/28/2012 17:27:59 Attending Provider: SANDOR GARCIA Primary Care Provider: JONI MORALES GRACIELA CHAVEZAE has been given the following list of medications: Your Medications It is important to take your medications as directed. Use a pill box or chart to help remind you to take your medications. Please let your doctor or nurse know if you have problems taking your medications. Medication/Strength Dose Route Frequency Indications/Special Instructions/Comments azithromycin (Zithromax Z-Patrick 250 mg oral tablet) 2 tablets on day 1, then 1 tablet on days 2-5 Oralas directed for 5 Days acetaminophen (Tylenol) as directed Oral as needed Attention: If you have any medications at home that are not on this list, DO NOT take them until youcontact your provider for clarification. Additional Information: Source: [facility] POWERCHART Document Id: [id number] CUTTER OPERATOR Miscellaneous - Linda Hardy R.M.A. - 06/28/2012 4:49 PM CST Pediatric Air Quality Chemist Intake/History Pediatric Air Quality Chemist Intake/History Entered On: 06/28/2012 16:53 WINK CUTTER OPERATOR Performed On: 06/28/2012 16:49 WINK CUTTER OPERATOR by LINDA HARDY Intake Chief Complaint : Cold for a couple weeks and is getting worse. Temperature Oral : 37.2C(Converted to: 99.0DegF) Peripheral Pulse Rate : 84/min Respiratory Rate : 16/min Heart Rhythm : Regular Systolic Blood Pressure : 94mmHg Diastolic Blood Pressure : 58mmHg NIBP Mean : 70mmHg BP Location : Right upper extremity Blood Pressure Cuff Size : Pediatric Actual Weight : 31.1kg(Converted to: 68lb 9oz) Weight Source : Standing scale Dosing Weight Clinic : 31.10kg LINDA HARDY 06/28/2012 16:49 WINK CUTTER OPERATOR General Info Accompanied By : Mother, Sibling Information Given By : Patient, Mother HARDYFELIXLINDALIZZY Jefferson 06/28/2012 16:49 WINK CUTTER OPERATOR Subjective Pain Symptoms : Yes LINDA HARDY 06/28/2012 16:49 WINK CUTTER OPERATOR Pain Pain Assessment Grid Pain 1 Pain 2 Location : Head Abdomen Laterality : Bilateral Bilateral Intensity : 6 4 LINDA HARDY 06/28/2012 16:49 WINK CUTTER OPERATOR LINDA HARDY 06/28/2012 16:49 WINK CUTTER OPERATOR Dependent Habits Tobacco Use/Currently Using : No Exposure to Tobacco Smoke : Care provider denies smoking in home, Lives with someone who smokes Smoking Status : Never smoker Alcohol Use : No LINDA HARDY 06/28/2012 16:49 WINK CUTTER OPERATOR Caffeine Use Grid Caffeine Use : None LINDA HARDY 06/28/2012 16:49 WINK CUTTER OPERATOR Recreational Drug Use Grid Drug Use : None LINDA HARDY 06/28/2012 16:49 WINK CUTTER OPERATOR Allergy Allergies (Active) Strawberries Estimated Onset Date: Unspecified ; Created By: ELIZABETH VAZQUEZ LPN; Reaction Status: Active ; Category: Drug ; Substance: Strawberries ; Type: Allergy ; Updated By: ELIZABETH VAZQUEZ LPN; Reviewed Date: 06/28/2012 16:49 WINK CUTTER OPERATOR Source: [facility] Lettuce Document Id: [id number] CUTTER OPERATOR documented in this encounter Plan of Treatment Not on filedocumented as of this encounter Visit Diagnoses Not on filedocumented in this encounter
--- OUTSIDE RECORDS SUMMARY | 2022-04-29 12:19 | XMS_ITS | Encounter Summary ---
:2000 Author Organization [facility] Address [address] [place] [address] Care Team Providers Name Role Phone Unavailable Primary Care Provider Unavailable Encounter Details Date Type Department Care Team Description 11/18/2010 Hospital Encounter HX [facility] FAMILY ME Jhony Burciaga III, M.D. [address] [phone] (Wo rk) Social History Tobacco Use Types Packs/Day Years Used Date Smoking Tobacco: Never Assessed Sex Assigned at Date Recorded Not on file documented as of this encounter Last Filed Vital Signs Vital Sign Reading Time Taken Comments Blood Pressure - - Pulse - - Temperature - - Respiratory Rate - - Oxygen Saturation - - Inhaled Oxygen Concentration - - Weight 22.8 kg (50 lb 4.2 oz) 11/18/2010 1:52 PM CDT Height - - Body Mass Index - - documented in this encounter Progress Notes Trell Burciaga M.D. - 11/18/2010 12:00 AM CDT [id number] CHIEF COMPLAINT/REASON FOR VISIT Lice. 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 She comes in today with complaints of head lice that occurred approximately one week ago. She was given a course of Permethrin [id number] treatment and this has failed to resolve the problem. Her mother states that she continues to have this a do two other family members. Patient does have long hair. Her mother is wondering if she can get a prescription strength treatment. Her symptoms include some mild head itching. There are currently no modifying factors that should improve or worsen her symptoms. SYSTEM REVIEW Pertinent positives and negatives are noted above. The remainder of the complete Review of Systems are negative. PAST MEDICAL/SURGICAL HISTORY Past medical history: 1) Pneumonia. VITAL SIGNS Temperature: 37.5-degrees Celsius. Pulse: 100. Respirations: 16. Blood pressure: 82/46. Weight: 22.8 kilograms. PHYSICAL EXAM IN GENERAL: The patient is alert and cooperative. She is in no acute distress at this time. SCALP: Evaluation of her scalp shows presence of nits as well as live lice. IMPRESSION/REPORT/PLAN CLINICAL IMPRESSION 1) Head lice. PLAN 1) We will plan on treating this with Permethrin (Elimite topical cream). This should be placed on the scalp and in the hair and left on as directed. Their questions were answered and reassurance was given. Trell Burciaga III, M.D. /princess Electronically Signed By: TRELL BURCIAGA III, MD On: 12/04/2010 07:57 am Modified by and Electronically Signed by: TRELL BURCIAGA III, MD On: 12/04/2010 07:57 am Source: [facility] MHSDOLBEYNONRADSYS Document Id: [id number] documented in this encounter Miscellaneous Notes Miscellaneous - Conversion, Historical Provider Ser - 11/18/2010 1:52 PM CDT Pediatric Billboard Poster Intake/History Pediatric Billboard Poster Intake/History Entered On: 11/18/2010 13:55 CDT Performed On: 11/18/2010 13:52 CDT by LATRICE DE LUNA LPN Intake Chief Complaint: told by school nurse she has lice, did the otc rx, still has according to mom c/o stomach ache Temperature Core: 37.5C(Converted to: 99.5DegF) Peripheral Pulse Rate: 100/min Respiratory Rate: 16/min Systolic Blood Pressure: 82mmHg (<LLOW) Diastolic Blood Pressure: 46mmHg (<LLOW) NIBP Mean: 58mmHg Actual Weight: 22.800kg(Converted to: 50lb 4oz) Dosing Weight Clinic: 22.80kg LATRICE DE LUNA LPN - 11/18/2010 13:52 CDT Subjective Pain Symptoms: Yes [place] LATRICE Kohli LPN - 11/18/2010 13:52 CDT Pain Pain Assessment Grid Pain 1 Location: Ear [place]TO LATRICE Kohli LPN - 11/18/2010 13:52 CDT Dependent Habits Tobacco Use/Currently Using: No [place] LATRICE Kohli LPN - 11/18/2010 13:52 CDT Caffeine Use Grid Caffeine Use: None LATRICE DE LUNA LPN - 11/18/2010 13:52 CDT Allergy Allergies (Active) Strawberries Estimated Onset Date: Unspecified ; Created By: ELIZABETH VAZQUEZ LPN; Reaction Status: Active ; Category: Drug ; Substance: Strawberries ; Type: Allergy ; Updated By: ELIZABETH VAZQUEZ LPN; Reviewed Date: 11/18/2010 13:51 CDT [facility] Document Id: [id number]!22 documented in this encounter Plan of Treatment Not on filedocumented as of this encounter Visit Diagnoses Not on filedocumented in this encounter
--- OUTSIDE RECORDS SUMMARY | 2022-04-29 12:19 | XMS_ITS | Encounter Summary ---
:2002 Author Organization [facility] Address [address] [place] [id number] Care Team Providers Name Role Phone Unavailable Primary Care Provider Unavailable Encounter Details Date Type Department Care Team Description 05/13/2011 Hospital Encounter HX [facility] [place] Skyler, Efren longoria P.A.-C. [address] [place] [address] (Wo rk) Social History Tobacco [...] - Inhaled Oxygen Concentration - - Weight 25.1 kg (55 lb 5.4 oz) 05/13/2011 5:39 PM EARLY CHILDHOOD EDUCATION INSTRUCTOR Height - - Body Mass Index - - documented in this encounter Medications at Time of Discharge Medication Sig Dispensed Refills Start Date End Date acetaminophen (TYLENOL) 500 Take by mouth as 0 mg capsule needed. documented as of this encounter Progress Notes Joan Shelton D.N.P., C.N.P. - 05/13/2011 12:00 AM CST [id number] CHIEF COMPLAINT/REASON FOR VISIT Hearing issues. HISTORY OF PRESENT ILLNESS The patient is a 11-year-old female that presents to the clinic today as her mother states that approximately two weeks ago she did not pass her hearing test at school in which she was advised to follow up with her primary care provider. She reports that she does not have any symptoms of allergies including sneezing, itchy or watery eyes and reports that she has not given her anything [id number] to help with the symptoms. Mother reports that she has not noticed any issues regarding the patient's hearing. PAST MEDICAL/SURGICAL HISTORY Reviewed. Please see chart. CURRENT MEDICATIONS Reviewed. Please see chart. ALLERGIES Reviewed. Please see chart. PHYSICAL EXAMINATION OBJECTIVE: Patient is alert, well-nourished, acting appropriately for age. HEAD: Normocephalic/atraumatic. PUPILS: WAYNE. OROPHARYNX: Keddie and moist. EARS: Bilateral TMs are clear, bony landmarks noted and WNL. NARES: Bilateral nares are mildly erythematous and polyps were noted bilaterally. NECK: No anterior/posterior lymphadenopathy noted. HEART: Regular S1, S2, no murmurs, rubs or gallops noted. LUNGS: Clear to auscultation, no prolonged expiratory phases, wheezing, or retractions noted. SKIN: Without unusual rashes or suspicious lesions, skin turgor within normal limits and cap refill <3 seconds. IMPRESSION/REPORT/PLAN 1. Reports of failing hearing test at school. 2. Nasal polyps. PLAN: Discussed the findings at length with the patient's mother. I did opt to start the patient on Claritin 10 mg tablets in which she is to take one tablet by mouth daily a quantity of 90 with three refills were authorized. I indicated that we will then have the patient follow up with [facility] as currently their insurance only allows them to go to previously authorized hospitals in which [facility] has not been not been an issue. We will have her follow up with audiology at that time. Patient and the patient's mother stated she understands the plan as they denied having any other further concerns. Patient ambulated out of the clinic in no acute distress. PATIENT EDUCATION: Ready to learn No apparent learning barriers were identified Learning preferences include listening Explained diagnosis and treatment plan Patient/Child/Caregiver expressed understanding of the content Harvinder BennettN.Lion., F.N.P. /nan Electronically Signed By: JOAN SHELTON DNP, FNP On: 05/18/2011 05:54 PM Source: [facility] [email or web address] Document Id: [id number] Y CHILDHOOD EDUCATION INSTRUCTOR documented in this encounter Nursing Notes Conversion, Historical Provider Ser - 05/20/2011 3:37 PM CST referral Referral to audiology @ [facility]. Appt scheduled for 06-07-11 @ 0900. Message left on mom's voice mail re: appt date, time & place. Electronically Signed By: MOR REYES LPN On: 05/20/2011 03:39 PM Source: [facility] [employer] Document Id: [id number] documented in this encounter Miscellaneous Notes Miscellaneous - Joan Shelton, Seun.N.P., C.N.P. - 05/13/2011 6:41 PM EARLY CHILDHOOD EDUCATION INSTRUCTOR Ambulatory Patient Summary [address] [address] Visit Information Name: GRACIELA CHAVEZ Current Date: 05/13/2011 18:41:41 Primary Care Provider: JONI MORALES Your Medications Here is a list of your medications. It is important to take your medications as directed. Use a pillbox or chart to help remind you to take your medications. Please let your doctor or nurse know if you have problems taking your medications. Medication/Strength Dose Route Frequency Indications/Special Instructions/Comments loratadine [...] No Appointments found Your Goals/Additional instructions: Source: [facility] POWERCHART Document Id: [id number] Y CHILDHOOD EDUCATION INSTRUCTOR Miscellaneous - Joan Shelton D.N.P., C.N.P. - 05/13/2011 6:41 PM EARLY CHILDHOOD EDUCATION INSTRUCTOR Ambulatory Depart Summary [id number] [place] [address] Visit Information Name: GRACIELA CHAVEZ Current Date: 05/13/2011 18:41:40 Primary Care Provider: JONI MORALES GRACIELA CHAVEZ has been given the following list of medications: Your Medications It is important to take your medications as directed. Use a pill box or chart to help remind you to take your medications. Please let your doctor or nurse know if you have problems taking your medications. Medication/Strength Dose Route Frequency Indications/Special Instructions/Comments loratadine (Claritin 10 mg oral tablet) 10 mg Oral once a day as needed for Allergy symptoms acetaminophen (Tylenol) as directed Oral as needed Additional Information: Yes - Current list of reconciled medications is provided and explained to the patient and/or family, guardian/caregiver. Source: [facility] POWERCHART Document Id: [id number] Y CHILDHOOD EDUCATION INSTRUCTOR Miscellaneous - Conversion, Historical Provider Ser - 05/13/2011 5:39 PM EARLY CHILDHOOD EDUCATION INSTRUCTOR Pediatric Environmental Services Tech Intake/History Pediatric Environmental Services Tech Intake/History Entered On: 05/13/2011 17:42 EARLY CHILDHOOD EDUCATION INSTRUCTOR Performed On: 05/13/2011 17:39 EARLY CHILDHOOD EDUCATION INSTRUCTOR by LATRICE DE LUNA LPN Intake Chief Complaint : failed hearing test at school, needs referral Temperature Core : 37.3C(Converted to: 99.1DegF) Peripheral Pulse Rate : 72/min Respiratory Rate : 16/min Systolic Blood Pressure : 88mmHg (<LLOW) Diastolic Blood Pressure : 64mmHg NIBP Mean : 72mmHg Actual Weight : 25.1kg(Converted to: 55lb 5oz) Dosing Weight Clinic : 25.10kg LATRICE DE LUNA MISSION WORKER - 05/13/2011 17:39 EARLY CHILDHOOD EDUCATION INSTRUCTOR Subjective Pain Symptoms : Yes [place] LATRICE Kohli MISSION WORKER - 05/13/2011 17:39 EARLY CHILDHOOD EDUCATION INSTRUCTOR Pain Pain Assessment Grid Pain 1 Location : Ear Laterality : Bilateral LATRICE DE LUNA MISSION WORKER - 05/13/2011 17:39 EARLY CHILDHOOD EDUCATION INSTRUCTOR Dependent Habits Tobacco Use/Currently Using : No Smoking Status : Never smoker LATRICE DE LUNA MISSION WORKER - 05/13/2011 17:39 EARLY CHILDHOOD EDUCATION INSTRUCTOR Caffeine Use Grid Caffeine Use : None LATRICE DE LUNA MISSION WORKER - 05/13/2011 17:39 EARLY CHILDHOOD EDUCATION INSTRUCTOR Recreational Drug Use Grid Drug Use : None LATRICE DE LUNA MISSION WORKER - 05/13/2011 17:39 EARLY CHILDHOOD EDUCATION INSTRUCTOR Allergy Allergies (Active) Strawberries Estimated Onset Date: Unspecified ; Created By: ELIZABETH VAZQUEZ LPN; Reaction Status: Active ; Category: Drug ; Substance: Strawberries ; Type: Allergy ; Updated By: ELIZABETH VAZQUEZ LPN; Reviewed Date: 04/21/2011 9:05 CDT Source: [facility] POWERCHART Document Id: [id number] EARLY CHILDHOOD EDUCATION INSTRUCTOR!27 documented in this encounter Plan of Treatment Not on filedocumented as of this encounter Visit Diagnoses Not on filedocumented in this encounter
--- OUTSIDE RECORDS SUMMARY | 2022-04-29 12:19 | XMS_ITS | Encounter Summary ---
:2000 Author Organization [facility] Address [address] [place] [address] Care Team Providers Name Role Phone Unavailable Primary Care Provider Unavailable Encounter Details Date Type Department Care Team Description 05/12/2012 Hospital Encounter HX [facility] [place] Skyler, Deysi WhiteAWil [address] [place] [address] (Wo rk) Social History Tobacco [...]
--- OUTSIDE RECORDS SUMMARY | 2022-04-29 12:19 | XMS_ITS | Encounter Summary ---
:[address] [facility] Address [address] [place] [address] Care Team Providers Name Role Phone Unavailable Primary Care Provider Unavailable Encounter Details Date Type Department Care Team Description 02/02/2013 Hospital Encounter HX [facility] [place] Skyler, Efren longoria P.A.-C. [address] [place] [address] (Wo rk) Social History Tobacco [...] - Inhaled Oxygen Concentration - - Weight 33.4 kg (73 lb 10.1 oz) 02/02/2013 7:01 AM CDT Height 136 cm (4' 5.54) 02/02/2013 7:01 AM CDT Body Mass Index 18.06 02/02/2013 7:01 AM CDT Body Mass Index Percentile 59.43 % 02/02/2013 7:01 AM CD T Growth Chart: CDC (Girls, 2-20 Years) documented in this encounter Medications at Time of Discharge Medication Sig Dispensed Refills Start Date End Date acetaminophen (TYLENOL) 500 Take by mouth as 0 mg capsule needed. documented as of this encounter Progress Notes Goran Quintanilla M.D. - 02/02/2013 6:55 AM CDT [id number] CHIEF COMPLAINT/REASON FOR VISIT Foot pain. HISTORY OF PRESENT ILLNESS Graciela is a 12-year-old female who comes in with her father today stating that 5 days ago she was playing with friends on a trampoline when a friend slipped into her and stepped on her right foot. Since then the third and fourth toes have been painful and swollen. There has also been mild bruising. Dad notes that he is concerned because she is still limping and any time that the toes are bumped it is very painful. They have been trying to wrap them. There is no pain in the ankle. They have not used any Meds or ice. CURRENT MEDICATIONS Reconciled. No new Meds. ALLERGIES Strawberries. REVIEW OF SYSTEMS As per HPI. VITAL SIGNS Temperature: 36.7-degrees Centigrade. Pulse: 74 beats per minute. Blood pressure: 87/50. Oxygen saturation: 99% on room air. Height: 136 cm. Weight: 33.4 kg. BMI: : 18. PHYSICAL EXAMINATION GENERAL: Patient is alert and in no acute distress. EXTREMITIES: No tenderness over bilateral ankles, right fourth toe especially appears to be a littlebit swollen. There may also be a subtle amount of swelling over the dorsal aspect of the distal third and fourth metatarsals. Patient has significant tenderness to palpation over the fourth toe there is also some tenderness over the third toe and distant metatarsals. There is bruising over the fourth toe. On range of motion patient can plantar and dorsiflex bilaterally but she is unable to scrunch upher right fourth toe due to pain. It also hurts if she tries to splay her toes. She has a 2+ dorsalis pedis and posterior tibial pulse bilaterally. IMAGING DATA Right foot x-ray shows a minimally displaced oblique fracture of the fourth proximal phalanx. IMPRESSION/REPORT/PLAN 1. Right fourth toe fracture. We pam-taped the toes today. I recommend that they wear a shoe that has a stiff sole. As patient'dayton improves they can stop the pam taping and wear sandals. I stated that we do not have to see her back unless she is having further problems. Tylenol can use for pain. PATIENT EDU #1 Patient Education Ready to learn No apparent learning barriers were identified Learning preferences include listening Explained diagnosis and treatment plan Patient/Child/Caregiver expressed understanding of the content. Goran Gonzales M.D./princess Electronically Signed By: GORAN LARSEN MD On: 02/13/2013 02:31 PM Modified by and Electronically Signed by: GORAN LARSEN MD On: 02/13/2013 02:31 PM Source: [facility] MHSDOLBEYNONRADSYS Document Id: [id number] documented in this encounter Miscellaneous Notes Miscellaneous - Goran Quintanilla M.D. - 02/02/2013 9:20 AM CDT Ambulatory Patient Summary [address] [address] Visit Information Name: GRACIELA CHAVEZ [facility] Number: [id number] Current Date: 02/02/2013 09:20:32 Physicians Attending Provider: JONI MORALES Primary Care Provider: JONI MORALES Your Medications Here is a list of your medications. It is important to take your medications as directed. Use a pillbox or chart to help remind you to take your medications. Please let your doctor or nurse know if you have problems taking your medications. Medication/Strength Dose Route Frequency Indications/Special Instructions/Comments/Notes acetaminophen (Tylenol) as directed Oral as needed [...] No Appointments found Your Goals/Additional instructions: Source: [facility] POWERCHART Document Id: [id number] Miscellaneous - Goran Quintanilla M.D. - 02/02/2013 9:20 AM CDT Ambulatory Depart Summary [address] [address] Visit Information Name: GRACIELA CHAVEZ [facility] Number: [id number] Visit Date: 02/02/2013 09:20:31 Attending Provider: JONI MORALES Primary Care Provider: JONI MORALES GRACIELA CHAVEZ has been given the following list of medications: Your Medications It is important to take your medications as directed. Use a pill box or chart to help remind you to take your medications. Please let your doctor or nurse know if you have problems taking your medications. Medication/Strength Dose Route Frequency Indications/Special Instructions/Comments/Notes acetaminophen (Tylenol) as directed Oral as needed Attention: If you have any medications at home that are not on this list, DO NOT take them until youcontact your provider for clarification. Additional Information: Source: [facility] [employer] Document Id: [id number] Hannah - Goran Quintanilla M.D. - 02/02/2013 8:41 AM CDT Xray results Document Contains Addenda Addendum by DOINNA VEGA LPN RT on 02 February 2013 08:46:06 CDT Father notified. DL From: GORAN LARSEN MD To: DIONNA VEGA LPN, RT; Sent: 02/02/2013 08:41:46 CDT Subject: Xray results Please notify dad that no other fractures were seen other than the one we discussed. Goran Alba Source: [facility] [employer] Document Id: [id number] Laynecellmamta - Dionna Vega L.P.N. - 02/02/2013 7:01 AM CDT Pediatric Organic Lab Worker Intake/History Pediatric Organic Lab Worker Intake/History Entered On: 02/02/2013 7:06 CDT Performed On: 02/02/2013 7:01 CDT by DIONNA VEGA LPN, RT Intake Chief Complaint : concerned about right foot injuried five days ago playing with friends on trampoline. Temperature Core : 36.7 DegC(Converted to: 98.1 DegF) Peripheral Pulse Rate : 74 /min Systolic Blood Pressure : 87 mmHg (<LLOW) Diastolic Blood Pressure : 50 mmHg (LOW) NIBP Mean : 62 mmHg BP Location : Left upper extremity Blood Pressure Cuff Size : Regular SpO2 : 99 % Oxygen Therapy : Room air Height : 136 cm(Converted to: 4 ft 6 inch(es), 53.54 inch(es)) Actual Weight : 33.4 kg(Converted to: 73 lb 10 oz) Weight Source : Standing scale Dosing Weight Clinic : 33.4 kg Clinic BSA : 1.12 Body Mass Index : 18.06 kg/m2 DIONNA VEGA LPN, RT - 02/02/2013 7:01 CDT General Info Accompanied By : Father Languages : Fijian DIONNA VEGA LPN, RT - 02/02/2013 7:01 CDT Subjective Pain Symptoms : Yes DIONNA VEGA LPN, RT - 02/02/2013 7:01 CDT Pain Pain Assessment Grid Pain 1 Location : Foot Laterality : Right DIONNA VEGA LPN, RT - 02/02/2013 7:01 CDT Dependent Habits Tobacco Use/Currently Using : No Exposure to Tobacco Smoke : Care provider denies smoking in home Smoking Status : Never smoker DIONNA VEGA LPN, RT - 02/02/2013 7:01 CDT Caffeine Use Grid Caffeine Use : None DIONNA VEGA LPN, RT - 02/02/2013 7:01 CDT Recreational Drug Use Grid Drug Use : None DIONNA VEGA LPN, RT - 02/02/2013 7:01 CDT Source: [facility] Document Id: [id number]!38 documented in this encounter Plan of Treatment Not on filedocumented as of this encounter Visit Diagnoses Not on filedocumented in this encounter
--- OUTSIDE RECORDS SUMMARY | 2022-04-29 12:19 | XMS_ITS | Encounter Summary ---
:2000 Author Organization [facility] Address [address] [place] [address] Care Team Providers Name Role Phone Unavailable Primary Care Provider Unavailable Encounter Details Date Type Department Care Team Description 09/24/2011 Hospital Encounter HX [facility] [place] Anabel Welsh M.D. [address] [phone] (Wo rk) Social History Tobacco Use Types Packs/Day Years Used Date Smoking Tobacco: Never Assessed Sex Assigned at Date Recorded Not on file documented as of this encounter Last Filed Vital Signs Vital Sign Reading Time Taken Comments Blood Pressure - - Pulse - - Temperature - - Respiratory Rate - - Oxygen Saturation - - Inhaled Oxygen Concentration - - Weight 26.8 kg (59 lb 1.3 oz) 09/24/2011 8:34 AM CDT Height - - Body Mass Index - - documented in this encounter Medications at Time of Discharge Medication Sig Dispensed Refills Start Date End Date acetaminophen (TYLENOL) 500 Take by mouth as 0 mg capsule needed. documented as of this encounter Progress Notes Anabel Quintanilla M.D. - 09/24/2011 12:00 AM CDT [id number] CHIEF COMPLAINT/REASON FOR VISIT Tick bite. HISTORY OF PRESENT ILLNESS The patient is a 11-year-old female who was playing in the last with a friend two days ago. Then last evening when she was getting ready for a bath, she noticed a wood tick on her side that was attached to the skin and engorged with blood. Her sister removed it. They also noted that the patient had a red rash around it that was approximately 8-9 inches across. Today you can still see where the tick was attached, but the other rash has resolved. Patient states that the insertion site is painful. There is no itching. She has had ticks in the past but has never had a rash like this. They also note that for the past three weeks, she has had a cold with runny nose, cough and a sore throat. It has been waxing and waning, but the patient still states that the throat pain is a 10/10. She has had no fevers, but she has had some abdominal pain. She has had strep throat in the past, but there are no definite ill contacts this time. CURRENT MEDICATIONS Reconciled. New medicine is: Amoxicillin 400 mg per 5 ml to take 5.5 ml by mouth every eight hours x 14 days. ALLERGIES Strawberries. SYSTEMS REVIEW Review of systems as per history of present illness. VITAL SIGNS Temperature is 36.5. Pulse 69 beats per minute. Respiratory rate 18 breaths per minute. Blood pressure is 96/66. Oxygen saturation 96% on room air. Weight is 26.8 kg. PHYSICAL EXAMINATION GENERAL: The patient is alert and oriented, in no acute distress. HEENT: TMs are clear bilaterally. Nasal mucosa mildly erythematous. Oral mucosa is moist. Oropharynx is erythematous. NECK: Neck is supple. There is anterior cervical lymphadenopathy. CARDIOVASCULAR EXAM: Regular rate and rhythm. Normal S1, S2. No murmurs, rubs or gallops. LUNGS: Clear to auscultation bilaterally. SKIN: There is an erythematous area with a central bite to her right side approximately in the mid rib cage. It is tender to touch. There is no surrounding erythema currently and I do not see any other erythematous rashes on the patient's trunk. IMPRESSION/REPORT/PLAN 1. Suspect Lyme disease. We will treat the patient for suspected Lyme disease with amoxicillin 50 mg/kg per day divided in three doses for 14 days. We advised them to monitor for any further rashes. We also discussed that the patient would not yet test positive for Lyme disease so we do not need to do blood work to confirm it. 2. Acute pharyngitis. We discussed potentially testing the patient for strep throat, but seeing how amoxicillin is an approved treatment for Lyme disease we chose that rather than doxycycline to potentially cover any streptococcal pharyngitis. PATIENT EDUCATION: Ready to learn No apparent learning barriers were identified Learning preferences include listening Explained diagnosis and treatment plan Patient/Child/Caregiver expressed understanding of the content Anabel Gonzales M.D. /nan Electronically Signed By: ANABEL LARSEN MD On: 09/28/2011 09:30 AM Modified by and Electronically Signed by: ANABEL LARSEN MD On: 09/28/2011 09:30 AM Source: [facility] [email or web address] Document Id: [id number] documented in this encounter Miscellaneous Notes Miscellaneous - Anabel Quintanilla M.D. - 09/24/2011 8:58 AM CDT Ambulatory Patient Summary [address] [address] Visit Information Name: KRISTEN CHAVEZ Current Date: 09/24/2011 08:58:48 Physicians Attending Provider: ANABEL LARSEN MD Primary Care Provider: JONI MORALES Your Medications Here is a list of your medications. It is important to take your medications as directed. Use a pillbox or chart to help remind you to take your medications. Please let your doctor or nurse know if you have problems taking your medications. Medication/Strength Dose Route Frequency Indications/Special Instructions/Comments amoxicillin (amoxicillin 400 mg/5 ml oral liquid) 440 mg Oral every 8 hours for 14 Days wt 26.8kg / Target Dose: amoxicillin 400 mg/5 ml oral liquid 16.7 mg/kg 09/24/2011 08:57:34 loratadine (Claritin 10 mg oral tablet) 10 [...] No Appointments found Your Goals/Additional instructions: Source: [employer] Document Id: [id number] Miscellaneous - Anabel Quintanilla M.D. - 09/24/2011 8:58 AM CDT Ambulatory Depart Summary [address] [address] Visit Information Name: KRISTEN CHAVEZ Visit Date: 09/24/2011 08:58:48 Attending Provider: ANABEL LARSEN MD Primary Care Provider: JONI MORALES KRISTEN CHAVEZ has been given the following list of medications: Your Medications It is important to take your medications as directed. Use a pill box or chart to help remind you to take your medications. Please let your doctor or nurse know if you have problems taking your medications. Medication/Strength Dose Route Frequency Indications/Special Instructions/Comments amoxicillin (amoxicillin 400 mg/5 ml oral liquid) 440 mg Oral every 8 hours for 14 Days wt 26.8kg / Target Dose: amoxicillin 400 mg/5 ml oral liquid 16.7 mg/kg 09/24/2011 08:57:34 loratadine (Claritin 10 mg oral tablet) 10 mg Oral once a day as needed for Allergy symptoms acetaminophen (Tylenol) as directed Oral as needed Attention: If you have any medications at home that are not on this list, DO NOT take them until youcontact your provider for clarification. Additional Information: [facility] Document Id: [id number] Miscellaneous - Yissel Altamirano L.P.N. - 09/24/2011 8:34 AM CDT Pediatric Lead Slot Technician Intake/History Document Has Been Updated Pediatric Lead Slot Technician Intake/History Entered On: 09/24/2011 8:39 CDT Performed On: 09/24/2011 8:34 CDT by YISSEL ALTAMIRANO LPN Intake Chief Complaint : wood tic on her side, right had a large [place] ring. has had a cold for over 2 weeks THERON YISSEL Villa LPN - 09/24/2011 8:40 CDT Onset of Symptoms : yesterday Temperature Core : 36.5C(Converted to: 97.7DegF) Peripheral Pulse Rate : 69/min (LOW) Respiratory Rate : 18/min Heart Rhythm : Regular Systolic Blood Pressure : 96mmHg Diastolic Blood Pressure : 66mmHg NIBP Mean : 76mmHg Blood Pressure Cuff Size : Pediatric SpO2 : 96% Actual Weight : 26.8kg(Converted to: 59lb 1oz) Weight Source : Standing scale Dosing Weight Clinic : 26.80kg YISSEL ALTAMIRANO LPN - 09/24/2011 8:34 CDT Subjective Pain Symptoms : Yes YISSEL ALTAMIRANO LPN - 09/24/2011 8:34 CDT Pain Pain Assessment Grid Pain 1 Pain 2 Location : Throat Other: side , right Intensity : 10 10 YISSEL ALTAMIRANO LPN - 09/24/2011 8:34 CDT YISSEL ALTAMIRANO LPN - 09/24/2011 8:34 CDT Dependent Habits Tobacco Use/Currently Using : No Smoking Status : Never smoker Alcohol Use : No YISSEL ALTAMIRANO LPN - 09/24/2011 8:34 CDT Caffeine Use Grid Caffeine Use : None YISSEL ALTAMIRANO LPN - 09/24/2011 8:34 CDT Recreational Drug Use Grid Drug Use : None YISSEL ALTAMIRANO LPN - 09/24/2011 8:34 CDT Allergy Allergies (Active) Strawberries Estimated Onset Date: Unspecified ; Created By: ELIZABETH VAZQUEZ LPN; Reaction Status: Active ; Category: Drug ; Substance: Strawberries ; Type: Allergy ; Updated By: ELIZABETH VAZQUEZ LPN; Reviewed Date: 09/24/2011 8:33 CDT Source: [facility] [employer] Document Id: [id number] CDT!3 documented in this encounter Plan of Treatment Not on filedocumented as of this encounter Visit Diagnoses Not on filedocumented in this encounter
--- OUTSIDE RECORDS SUMMARY | 2022-04-29 12:19 | XMS_ITS | Encounter Summary ---
:2000 Author Organization [facility] Address [address] [place] [address] Care Team Providers Name Role Phone Elsewhere, Pcp Primary Care Provider Unavailable Reason for Visit Reason Comments Dysuria Pt presents with back pain, vaginal pain, dysuria rating as 8/10. Pt currently on her menses. Pt took AZO at 2100. Encounter Details Date Type Department Care Team Description 01/29/2022 - Emergency [place] [facility] Davon Penny Infec tipadmini Urinary Tract (Primary Dx); 01/30/2022 Department C.N.P. Bleeding Vaginal [address] [place] [address] [address] [place] [phone] Social History Tobacco Use Types Packs/Day Years [...] 14.6 oz) 01/29/2022 11:46 PM CDT Height - - Body Mass Index - - documented in this encounter Discharge Instructions Discharge InstructionsDavon Penny, C.N.P. - 01/30/2022 12:51 AM CDT If you have persistent abdominal cramping, significant pus drainage from your vagina, fevers, nauseavomiting that you can not control, weakness, or worsening symptoms, I do recommend returning to emergency department for further evaluation. Otherwise, consider follow-up with the gynecology clinic next week. AttachmentsThe following attachments cannot be sent through Care Everywhere. Abnormal Uterine Bleeding (Croatian)Urinary Tract Infection Adult [id number] (Croatian)documented in this encounter Medications at Time of Discharge Medication Sig Dispensed Refills Start Date End Date acetaminophen (TYLENOL) Take by mouth as 0 2010 500 mg capsule needed. albuterol 90 Inhale 1-2 puffs. 0 10/16/2020 mcg/actuation inhaler hydrOXYzine (VISTARIL) Take 50 mg by mouth. 0 50 mg capsule levonorgestreL-ethinyl Take 1 tablet by 0 022 estrad (NORDETTE) mouth daily. 0.15-0.03 mg per tablet ibuprofen (ADVIL,MOTRIN) Take 200 mg by mouth 0 200 mg tablet every 6 (six) hours as needed for pain. cefdinir (OMNICEF) 300 Take 1 capsule (300 10 capsule 0 01/0302/04/2022 mg capsule mg total) by mouth 2 (two) times a day before breakfast and dinner for 5 days. documented as of this encounter ED Notes Davon Penny, C.N.P. - 01/29/2022 11:57 PM CDT SUBJECTIVE CHIEF COMPLAINT/REASON FOR VISIT Dysuria (Pt presents with back pain, vaginal pain, dysuria rating as 8/10. Pt currently on her menses. Pt took AZO at 2100.) HISTORY OF PRESENT ILLNESS Kristen Singh is a 21 y.o. female who presents to the ED concerning for vaginal pain and dysuria.Patient reports since yesterday she has been having symptoms of dysuria with increasing urgency. Shedenies any fever or frequency. Denies any abdominal pain or flank pain she does endorse lower back pain. She said around 8:00 a.m. this morning she developed vaginal pain. She is on her 3rd day of her menstrual cycle. She states the today the bleeding is less than normal. She described the pain as a pressure-like 8/10 to vaginal pain. She denies any nausea vomiting. She is on control and is sexually active. She denies any vaginal discharge. REVIEW OF SYSTEMS Constitutional: Negative for fever. HENT: Negative for facial swelling. Eyes: Negative for parisa-orbital edema. Respiratory: Negative for cough and shortness of breath. Cardiovascular: Negative for chest pain and leg swelling. Gastrointestinal: Negative. Genitourinary: Positive for dysuria, urgency, vaginal bleeding and vaginal pain. Negative for flank pain, frequency and pelvic pain. Musculoskeletal: Positive for back pain. Skin: Negative. Neurological: Negative. Psychiatric/Behavioral: Negative. All other systems reviewed and are negative. OBJECTIVE Initial Vitals Temperature Pulse Rate Heart Rate Resp Rate Blood Pressure SpO2 01/29/22 2345 01/29/22 2345 -- 01/29/22 2345 01/29/22 2345 -- 37 ??C 70 20 120/89 Pain Score 01/29/22 2348 8 PHYSICAL EXAMINATION Constitutional: Nursing note and vitals reviewed. She appears not lethargic. No distress. HENT: Head: Normocephalic. Nose: Nose normal. Eyes: Conjunctivae are normal. Neck: No tracheal deviation present. Pulmonary/Chest: Effort normal and breath sounds normal. Abdominal: exhibits no distension. Genitourinary: Pelvic exam was performed with patient prone. There is no rash, tenderness, lesion or injury on the right labia. There is no rash, tenderness, lesion or injury on the left labia. Cervix exhibits no motion tenderness and no discharge. Vaginal bleeding present. No vaginal discharge or erythema. No foreign body in the vagina. No signs of injury in the vagina. Genitourinary Comments: Bleeding with clot noted to cervical opening. Scant amount of blood to vaginal vault. Neurological: Alert. Skin: Skin is warm and dry. She is not diaphoretic. Psychiatric: She has a normal mood and affect. ASSESSMENT/PLAN IMPRESSION AND PLAN Patient presents concerning for vaginal pain and UTI symptoms. On exam, scant amount of blood in thevaginal vault but there is bleeding with clot noted to the cervical os. The cervical os does not appear to be inflamed. Negative for . No fevers. Stable vital signs otherwise. Do not suspect septic shock at this time. Urinalysis suggestive for UTI. Plan: Discharge home with cefdinir and recommend patient follow up with the OBGYN next week for close monitoring as needed. Strict return precautions given. DIFFERENTIAL DIAGNOSIS Septic shock, vaginal bleeding, ectopic , UTI, pyelo, and others considered. ED Course as of 01/30/2250 Sat Jan 30, 2022 0036 Test, POCT, Urine - EC: Negative 0042 White Blood Cells(!): >100 0042 Bacteria(!): Present 0042 Nitrite, U(!): Positive 0042 Leukocyte Esterase(!): Moderate Final Diagnoses: as of 01/30/2250 Infection Urinary Tract Bleeding Vaginal Davon Penny, C.N.P. 01/30/2250 documented in this encounter Plan of Treatment Not on filedocumented as of this encounter Procedures Procedure Name Priority Date/Time Associated Comments Diagnosis BACTERIAL CULTURE, STAT 01/30/2022 12:10 Resul ts for this AEROBIC + SUSC, URINE AM CDT proced ure are in the results section. TEST, POCT, STAT 01/30/2022 12:10 Re sults for this U (LAB) AM CDT procedure are i n the results section. URINALYSIS WITH STAT 01/30/2022 12:10 Results for this MICROSCOPIC AM CDT procedure are i n the results section. documented in this encounter Results Test, POCT, Urine (lab) (01/30/2022 12:10 AM CDT) P athologist Signature Negative 01/30/2022 CNFL Test, POCT, U 12:33 AM CDT Specimen Anatomical Collection Method Collection Time Receive d Time (Source) Location / / Volume Laterality Urine 01/30/2022 12:10 01/30/2022 AM CDT 12:22 AM CDT Davon Londono.N.P. LAB POCT ORDERABLES - DEVICE Performing Organization Address City/State/ZIP Code Phon e Number [facility]- [address] [place] [phone] [place] [address] System in [place] [address] (ABNORMAL) Urinalysis with Microscopic: Urine, Midstream (01/30/2022 12:10 AM CDT) Analysis Performed At [facility] Time Signature Source Urine, Urine, 01/30/2022 CNFL [...] 8.0 01/30/2022 12:40 AM CDT CNFL Specific [place] 1.020 1.001 - 1.035 01/30/2022 12:40 AM [...] AM CDT 12:22 AM CDT [place] N Penny C.N.P. LAB URINE ORDERABLES Performing Organization Address City/State/ZIP Code Phon e Number [facility]- [address] [place] [phone] [place] [address] System in [address] (ABNORMAL) Bacterial Culture, Aerobic + Susc, Urine (01/30/2022 12:10 AM CDT) Patholo gist Method Time Signature Urine Culture ESCHERICHIA [...] - GENERAL O RDERABLES Performing Organization Address City/State/ZIP Code Phon e Number [facility]- [address] [place] [phone] [facility] [place] [address] System in [address] documented in this encounter Visit Diagnoses Diagnosis Infection Urinary Tract - Primary Bleeding Vaginal documented in this encounter Administered Medications Inactive Administered Medications - up to 3 most recent administrations Medication Order MAR Action Action Date Dose Rate Site diphenhydrAMINE capsule 25 mg Given 01/30/2022 12:37 AM CDT 25 m g (BENADRYL) 25 mg, oral, Once, On 01/30/22 at 0016, For 1 dose ibuprofen tablet 400 mg (ADVIL,MOTRIN) Given 01/30/2022 12:37 AM CDT 400 mg 400 mg, oral, Once, On 01/30/22 at 0015, For 1 dose, Take with food or milk if GI disturbances occur with use. documented in this encounter Active and Recently Administered Medications Times are shown in CDT. Scheduled Medication Order 01/28/2022 01/29/2022 01/30/2022 diphenhydrAMINE capsule 25 mg (BENADRYL) (COMPLETED) 36 (Given - Provider: Anna Heller, R.NPaxton) 25 mg, oral, Once, On 01/30/22 at 0016, For 1 dose ibuprofen tablet 400 mg (ADVIL,MOTRIN) (COMPLETED) 36 (Given - Provider: Anna Heller R.N.) 400 mg, oral, Once, On 01/30/22 at 00 15, For 1 dose, Take with food or milk if GI disturbances occur with use. documented in this encounter Care Teams Nougat Candy Maker Helper Relationship Specialty Start Date End Date Elsewhere, Pcp PCP - General 03/04/19 documented as of this encounter
--- OUTSIDE RECORDS SUMMARY | 2022-04-29 12:20 | XMS_ITS | Encounter Summary ---
:2002 Author Organization [facility] Address [address] [place] [address] Care Team Providers Name Role Phone Rebekah Nguyen MD Primary Care Provider Reason for Visit Reason Comments TB Test Encounter Details Date Type Department Care Team Description 02/03/2022 Immunization [place] [address] [place], [place] [address] Social History Tobacco Use Types Packs/Day Years Used Date Never Assessed Sex Assigned at Date Recorded Not on file documented as of this encounter Plan of Treatment Not on filedocumented as of this encounter Visit Diagnoses Not on filedocumented in this encounter Care Teams Economic Analysis Director Relationship Specialty Start Date End Date Rebekah Nguyen MD PCP - General Family Medicine 01/19/22 [address] [place] [address] documented as of this encounter
--- OUTSIDE RECORDS SUMMARY | 2022-04-29 12:20 | XMS_ITS | Encounter Summary ---
:2000 Author Organization [facility] Address [address] [place] [address] Care Team Providers Name Role Phone Rebekah Nguyen MD Primary Care Provider Encounter Details Date Type Department Care Team Description 01/25/2022 Clinical Support Parminder Acharya Screening-pulmonary TB [address] (Primary Dx) Parmin[place] [address] Social History Tobacco Use Types Packs/Day Years Used Date Never Assessed Sex Assigned at Date Recorded Not on file documented as of this encounter Plan of Treatment Not on filedocumented as of this encounter Procedures Procedure Name Priority Date/Time Associated Diagnosis Comme nts TB SKIN TEST Routine 01/27/2022 12:57 PM Screening-pulmonary R esults for this CDT TB procedure are i n the results section . documented in this encounter Results TB Skin Test (01/27/2022 12:57 PM CDT) P athologist Signature TB Skin Test Negative Induration 0 mm Specimen (Source) Anatomical Collection Method Collection Time Re ceived Time Location / / Volume Laterality Other 01/27/2022 12:57 PM CDT Harvinder Ryder MD POINT OF CARE TEST ENTER/TRISH T ORDERABLES documented in this encounter Visit Diagnoses Diagnosis Screening-pulmonary TB - Primary Screening examination for pulmonary tube rculosis documented in this encounter Care Teams Candy Attendant Relationship Specialty Start Date End Date Rebekah Nguyen MD PCP - General Family Medicine 01/19/[address] [place] [address] documented as of this encounter
--- OUTSIDE RECORDS SUMMARY | 2022-04-29 12:20 | XMS_ITS | Encounter Summary ---
:2002 Author Organization [facility] Address [address] [place] [address] Care Team Providers Name Role Phone Rebekah Nguyen MD Primary Care Provider Reason for Visit Reason Comments TB Test read Encounter Details Date Type Department Care Team Description 01/27/2022 Immunization [place] [address] [place], [place] [address] Social History Tobacco Use Types Packs/Day Years Used Date Never Assessed Sex Assigned at Date Recorded Not on file documented as of this encounter Progress Notes Shelley Rao RN - 01/27/2022 1:00 PM CDT PPD read right lower forearm. documented in this encounter Plan of Treatment Not on filedocumented as of this encounter Visit Diagnoses Not on filedocumented in this encounter Care Teams Walking Dragline Operator Relationship Specialty Start Date End Date Rebekah Nguyen MD PCP - General Family Medicine 01/19/22 [place] [address] documented as of this encounter
--- OUTSIDE RECORDS SUMMARY | 2022-04-29 12:20 | XMS_ITS | Clinical Summary ---
:2000 Author Organization [employer] [place] [address] Care Team Providers Name Role Phone Rebekah Nguyen MD Primary Care Provider Allergies Active Allergy Reactions Severity Noted Date Comments Gluten *Unknown Unknown 03/11/2022 Medications Medication Sig Dispensed Refills Start Date End Date Status hydrOXYzine pamoate Take 1 Capsule (50 90 Capsule 3 12/22/2021 Active (VISTARIL) 50 mg mg) by mouth at capsuleIndications: bedtime if needed Anxiety for Anxiety (sleep). levonorgestrel-ethi Take 1 Tablet by 3 Packet 3 02/02/2022 Active nyl estrad, 0.15-30 mouth once daily. mg-mcg, (LEVLEN; NORDETTE-28) 0.15-0.03 mg tabletIndications: Encounter for counseling regarding contraception albuterol HFA Inhale 1-2 Puffs by 1 Each 1 03/12/2022 Active (PRO-AIR; VENTOLIN; mouth every 4 hours PROVENTIL) 90 if needed for mcg/actuation Shortness of Breath inhalerIndications: 1st choice. Mild intermittent reactive airway disease without complication ibuprofen (ADVIL; Take 2-4 Tablets 100 Tablet 0 03/16/2022 Active MOTRIN) 200 mg (400-800 mg) by tabletIndications: mouth every 6 hours Hx of laparoscopy if needed for Pain (mild pain). acetaminophen Take 1-2 Tablets 100 Tablet 0 03/16/2022 Active (TYLENOL) 325 mg (325-650 mg) by tabletIndications: mouth every 4 hours Hx of laparoscopy if needed (mild pain). Max acetaminophen dose: 4000mg in 24 hrs. HYDROcodone-acetami Take 1 Tablet by 20 Tablet 0 03/16/2022 Active nophen (NORCO) mouth every 4 hours 5-325 mg per if needed for Pain. tabletIndications: Max acetaminophen Family history of dose: 4000 mg in 24 endometriosis, Hx hrs. of laparoscopy fluconazole Take 1 Tablet (150 2 Tablet 0 04/16/2022 04/16/20 2 (Diflucan) 150 mg mg) by mouth one 2 tabletIndications: time for 1 dose. Vaginal irritation Repeat in 3 days if still symptomatic Active Problems No known active problems Encounters Date Type Specialty Care Team Description 04/29/2022 Nurse Triage Rebekah Nguyen, Jennifer REEVES 04/16/2022 Orders Only Lab, [facility] 04/16/2022 Travel 04/15/2022 E-Visit Rebekah Nguyen, Yousufisit f or Urinary MD Problems 03/17/2022 Telephone Rebekah Nguyen, Prior Au thorization (albuterol HFA (PRO-AIR; VENTOLIN; PROVE NTIL) 90 mcg/actuation i nhaler-PA NOT NEEDED) 03/16/2022 Anesthesia Event Arianna Draper, MANISH 03/16/2022 Surgery Suyapa Kapoor Diagnostic laparoscopy MD Demi 03/16/2022 Hospital Encounter Suyapa Kapoor Fami ly history of endometriosis (Primary Dx); MD Demi Pelvic pain; Hx of laparosco py 03/16/2022 Travel 03/12/2022 Preop Visit Rebekah Nguyen, Pre-Op E xam (Diagnostic laparoscopy, po ssible treatment of endometriosis/[facility] /Suyapa Kapoor MD/gynecology) 03/12/2022 Travel 02/02/2022 Office Visit Rebekah Nguyen, ER Juan Alberto w up (abdominal MD pain and vagina l bleeding); Pain (lower back pain 01/28- 01/29 start ) 02/02/2022 Travel 01/27/2022 Telephone Suyapa Kapoor Surgery Dc heduled MD Demi from Last 3 Months Immunizations Name Administration Dates Next Due DTaP 2002, 2002, 2002 DTaP-HIB (TriHIBIT) 09/14/2003 Dtap Unspecified Formulation 2002, 2002, 002 HIB-HepB (Comvax) 2002, 2002 HPV 9 (Gardasil 9) 09/24/2015 Hepatitis A (Peds) 09/24/2015, 10/31/2014 Hepatitis B (Peds) 2002 Human Papilloma Virus Vaccine 10/31/2014 Inactivated Polio Vaccine 03/07/2008, 2002, 2002 , 2002 Influenza A (H1N1), Inactivated 08/15/2009 Influenza A (H1N1), Inactivated (Age 0310/01/2009 >=3 Years) Influenza Virus, Unspecified 06/13/2015, 04/16/2013, 012, 04/12/2011, 08/15/2009 Influenza, IIV3 (Age >=3 years) 05/17/2016, 05/12/2012 Influenza, IIV4 04/19/2018, 05/20/2017, 05/17/2016 Influenza, IIV4 (=>6mos) MDV 06/13/2015 MMR, Unspecified 03/07/2008, 03/26/2003 Meningococcal Vaccine 10/31/2014 Meningococcal Vaccine (Menactra) 04/19/2018 Meningococcal Vaccine (Menveo) 04/19/2018 Meningococcal, Unspecified 10/31/2014 Pneumococcal conj 7-Valent (Prevnar 7) 2002, 2, 2002 Tdap 03/22/2013 Varicella Vaccine 03/07/2008, 03/26/2003 Family History Medical History Relation Name Comments Hypothyroidism Brother PTSD Brother Hypothyroidism Mother Other Mother pancreas removed for sphincter of thanh dysfunction Depression Sister Relation Name Status Comments Brother Mother Sister Social History Tobacco Use Types Packs/Day Years Used Date Never Smoker Smokeless Tobacco: Never Used Tobacco Cessation: Counseling Given: Yes Comments: no exposure Alcohol Use Standard Drinks/Week Comments No 0 (1 standard drink = 0.6 oz pure alcoho l) Sex Assigned at Date Recorded Not on file COVID-19 Exposure Response Date Recorded In the last 10 days, have you been in contact with No / Unsu re 04/16/2022 1:20 PM CDT someone who was confirmed or suspected to have Coronavirus/COVID-19? Obstetrics History Para Term AB IAB SAB Ectopic Multiple Living Live Births 0 0 0 0 0 0 0 0 0 0 0 Last Filed Vital Signs Vital Sign Reading Time Taken Comments Blood Pressure 116/70 03/16/2022 11:00 AM CDT Pulse 65 03/16/2022 11:00 AM CDT Temperature 36.7 ??C (98 ??F) 03/16/2022 9:25 AM CDT Respiratory Rate 22 03/16/2022 10:38 AM CDT Oxygen Saturation 98% 03/16/2022 11:00 AM CDT Inhaled Oxygen Concentration - - Weight 70.7 kg (155 lb 12.8 oz) 03/16/2022 6:27 AM CDT Height 161.3 cm (5' 3.5) 03/16/2022 6:27 AM CDT Body Mass Index 27.17 03/16/2022 6:27 AM CDT Plan of Treatment Health Maintenance Due Date Last Done Comments COVID-19 vaccine series (#1) 2002 Pneumococcal series for age 19-64 02/11/2008 (1 - PCV) Well Child Check for age 3-20 07/24/2020 07/24/2019, 2017, 02/01/2017 Influenza for age 9-49 03/04/2022 04/19/2018, 05/20/2017, 05/17/2016, Additional history exists Depression screening for age 12+ 08/21/2022 08/21/2021, 08/2020, 10/16/2020, Additional history exists BMI (ht and wt on same day) for 03/12/2023 03/12/2022, 08/0 08/2021, age 18+ 01/20/2022, Additional history exists Tetanus booster 03/22/2023 03/22/2013 Chlamydia for age 16-24 04/16/2023 04/16/2022, 12/22/2021, 10/31/2020, Additional history exists Tdap Completed 03/22/2013 HPV series for age 9-26 Completed 09/24/2015, 10/31/2014 Meningococcal series for age 11-21 Completed 04/19/2018, 1 , 10/31/2014, Additional history exists Hepatitis C screening for age Completed 12/22/2021 18-79 Procedures Procedure Name Priority Date/Time Associated Diagnosis Comme nts GC CHLAMYDIA TRACH Add On 04/16/2022 1:35 Urinary tract Resul ts for this PROBE PM CDT infection symptoms procedure are in the results section. TRICHOMONAS, LEONA, Routine 04/16/2022 1:35 Urinary tract Re sults for this AND BACTERIAL PM CDT infection symptoms procedur e are in VAGINOSIS BY MARGRET the results section. URINE CULTURE Routine 04/16/2022 1:31 Urinary tract Results fo r this PM CDT infection symptoms procedure are in the results section. UA W/ SEDIMENT EXAM Routine 04/16/2022 1:31 Urinary tract Resu lts for this REFLEXED PER CRITERIA PM CDT infection symptoms procedure are in the results section. ENDOTRACHEAL TUBE Routine 03/16/2022 8:05 Results for this AM CDT procedure are i n the results section. ENDOTRACHEAL TUBE Routine 03/16/2022 8:05 Results for this AM CDT procedure are i n the results section. OR IMAGE CAPTURE Routine 03/16/2022 7:12 AM CDT LAPAROSCOPIC 03/16/2022 7:09 Pelvic pain DIAGNOSTIC AM CDT Family history of endometriosis Case Notes Lithotomy Special Needs Chart made, Electronically S igned by: Rebekah Nguyen MD 03/12/2022 URINE Preop 03/16/2022 6:17 AM CDT Re sults for this procedure are i n the results section . SCAN-CARDIAC STRIP 03/16/2022 12:00 AM Re sults for this CDT procedure are i n the results section . URINE Routine 03/12/2022 4:07 PM CDT Pre-op exam Re sults for this procedure are i n the results section . COVID 19 Routine 03/12/2022 3:46 PM CDT Pre-op testing Res ults for this procedure are i n the results section . COVID 19 COLLECTION Routine 03/12/2022 3:46 PM CDT Pre-op test ing Results for this procedure are i n the results section . from Last 3 Months Results (ABNORMAL) TRICHOMONAS, LEONA, AND BACTERIAL VAGINOSIS BY MARGRET (04/16/2022 1:35 PM CDT) [facility] Method Time Signature LEONA SPECIES Positive (A) Negative [facility]20[facility]-CE CDT NTRAL LABORATORY LEONA Negative Negative 04/17/2022 [facility] GLABRATA 10:45 AM LABORATORY-CE CDT NTRAL LABORATORY TRICHOMONAS VVA Negative Negative 04/17/2022 [facility] 10:45 AM LABORATORY-CE CDT NTRCO LABORATORY BACTERIAL Negative Negative 04/17/2022 [facility] VAGINOSIS 10:45 AM LABORATORY-CE CDT NTRAL LABORATORY Specimen Anatomical Collection Method Collection Time Receive d Time (Source) Location / / Volume Laterality Other VAGINAL SWAB / Non-Blood / 04/16/2022 1:35 PM 022 1:46 Unknown Unknown CDT PM CDT Rebekah Nguyen MD MICROBIOLOGY Performing Organization Address [facility] Phon e Number [facility] [address] [place] [address] LABORATORY-CENTRAL 1999 LABORATORY GC & CHLAMYDIA DNA PCR [[id number]] (04/16/2022 1:35 PM CDT) [facility] Method Time Signature CHLAMYDIA PROBE Negative 04/17/2022 [facility] 2:53 PM CDT LABORATORY-[place] TRAL LABORATORY N GONORRHOEAE Negative 04/17/2022 [facility] PROBE 2:53 PM CDT LABORATORY-[place] TRAL LABORATORY Specimen Anatomical Collection Method Collection Time Receive d Time (Source) Location / / Volume Laterality Other VAGINAL SWAB / Non-Blood / 04/16/2022 1:35 PM 022 1:46 Unknown Unknown CDT PM CDT Rebekah Nguyen MD MICROBIOLOGY Performing Organization Address City/[facility] Phon e Number [facility] [address] [place] [address] LABORATORY-CENTRAL 1999 LABORATORY URINE CULTURE (04/16/2022 1:31 PM CDT) [facility] Method Time Signature CULTURE <10,000 CFU/mL 04/17/2022 [facility] multiple 10:28 PM CDT LABORATORY-[facility]ODIE organisms TRAL LABORATORY Specimen Anatomical Collection Method Collection Time Receive d Time (Source) Location / / Volume Laterality Urine URINE SPECIMEN / Non-Blood / 04/16/2022 1:31 PM 04/16 1:31 Unknown Unknown CDT PM CDT Rebekah Nguyen MD MICROBIOLOGY Performing Organization Address City/State/ZIP Code Phon e Number [facility] [address] [place] [address] LABORATORY-CENTRAL 1999 LABORATORY (ABNORMAL) UA W/ SEDIMENT EXAM REFLEXED PER CRITERIA (04/16/2022 1:31 PM CDT) [facility] Method Time Signature COLOR Yellow Yellow Color 04/16/2022 [facility] 1:40 PM CDT [facility] CLARITY Clear Clear 04/16/2022 [facility] Clarity 1:40 PM CDT [facility] SPECIFIC >=1.030 (A) 1.010, 04/16/2022 [facility] GRAVITY,URINE 1.015, 1:40 PM CDT [place] 1.020, 1.025 CLINIC PH,URINE 6.0 6.0, 7.0, 04/16/2022 [facility] 8.0, 5.5, 1:40 PM CDT [place] 6.5, 7.5, CLINIC 8.5 UROBILINOGEN, Normal Normal EU/dl 04/16/2022 [facility] 1:40 PM CDT [facility] PROTEIN, Negative Negative 04/16/2022 [facility] URINE mg/dL 1:40 PM CDT [facility] GLUCOSE, Negative Negative 04/16/2022 [facility] URINE mg/dL 1:40 PM CDT [facility] KETONES,URINE Trace (A) Negative 04/16/2022 [facility] mg/dL 1:40 PM CDT [facility] BILIRUBIN,URI Negative Negative 04/16/2022 [facility] NE 1:40 PM CDT [facility] OCCULT Negative Negative 04/16/2022 [facility] BLOOD,URINE 1:40 PM CDT [facility] NITRITE Negative Negative 04/16/2022 [facility] 1:40 PM CDT [facility] LEUKOCYTE Negative Negative 04/16/2022 [facility] ESTERASE 1:40 PM CDT [facility] Specimen Anatomical Collection Method Collection Time Receive d Time (Source) Location / / Volume Laterality Urine URINE SPECIMEN / Non-Blood / 04/16/2022 1:31 PM 10/14 /2022 1:31 Unknown Unknown CDT PM CDT Rebekah Nguyen MD URINE Performing Organization Address City/State/ZIP Code Phon e Number [facility] [address] [place] [address] HCHG TUBE PR1, HCHG STYLET PR1 (03/16/2022 8:05 AM CDT) Narrative Arianna Draper CRNA - 03/16/2022 8 :05 AM CDT Arianna Draper CRNA ? 03/16/2022 ??8:05 AM Procedure: ETT Patient location during procedure: OR ETT Properties Mask Ventilation: easy Final Technique: direct laryngoscopy Type: straight Location: oral Cuffed: yes Tube Size: 7.0 mm Stylet: yes Laryngoscope Blade: Hernandes Blade Size: 2 Cormack-Lehane Grade View: 1 Insertion Attempts: 1 Placement Verification: auscultation and end tidal CO2 Assessment: pharynx clear, atraumatic an d dentition unchanged Secured at: 22 Measured From: lips Difficulty: 0 (not difficult) Electronically signed by Arianna Draper CRNA ? Arianna Draper CRNA ANESTHESIA PX NOTE ORDERABLE S Urine (03/16/2022 6:17 AM CDT)Only the most recent of2 resultswithin the time period is included. athologist Signature ,URIN Negative Negative 03/16/2022 [facility] 6:27 AM CDT [facility] Specimen Anatomical Collection Method Collection Time Receive d Time (Source) Location / / Volume Laterality Urine URINE SPECIMEN / Non-Blood / 03/16/2022 6:17 AM 03/16 6:22 Unknown Unknown CDT AM CDT Suyapa Kapoor MD URINE Performing Organization Address City/State/ZIP Code Phon e Number [facility] [place] [address] [place] [address] [facility] SCAN-CARDIAC STRIP (03/16/2022 12:00 AM CDT) Narrative 03/16/2022 12:00 AM CDT This result has an attachment that is no t available. Ordered by an unspecified provider. Other Clinical Staff OTHER COVID 19 (03/12/2022 3:46 PM CDT) Analysis Performed At [facility] Time Signature COVID 19 Negative Negative 03/13/2022 [facility] 6:16 PM CDT LABORATORY-[facility] MOLECULAR TRAL LABORATORY Specimen Anatomical Location / Collection Method Collection Ke e Received Time (Source) Laterality / Volume Other SPECIMEN FROM Non-Blood / 03/12/2022 3:46 03/13/2022 9:49 NASOPHARYNGEAL Unknown PM CDT AM CDT STRUCTURE / Unknown Narrative [facility] LABORATORY-CENTRAL LABORAT ORY - 03/13/2022 6:16 PM CDT All PCR tests are subject to false negative result due to variability in viral load and collection te chn[place]. A negative result does not rule out a SARS-CoV-2 infection. Clinical correlation required. This test has been authorized by FDA und er an Emergency Use Authorization (EUA). This test is only authorized for the duration of time the declaration that circumstances exist justifying the authorizati on of the emergency use of in vitro diag nostic tests for detection of SARS-CoV-2 virus and/or diagnosis of COVID-19 infection under section 564(b)(1) of the Act, 21 U.S.C. 360bbb-3(b) (1), unless the authorization is terminated or revoked sooner. Rebekah Nguyen MD MICROBIOLOGY Performing Organization Address City/State/ZIP Code Phon e Number [facility] [address] [place] [address] LABORATORY-CENTRAL 2000 LABORATORY COVID 19 COLLECTION (03/12/2022 3:46 PM CDT) [facility] gist Method Time Signature TESTING popAD [facility] 03/13/2022 [facility] Laboratory 9:49 AM CDT LABORATORY-CE NTRAL LABORATORY Comment: Specimen submitted to [facility] for testing. Specimen Anatomical Location / Collection Method Collection Ke e Received Time (Source) Laterality / Volume Other SPECIMEN FROM Non-Blood / 03/12/2022 3:46 03/12/2022 3:51 NASOPHARYNGEAL Unknown PM CDT PM CDT STRUCTURE / Unknown Rebekah Nguyen MD SEND OUTS Performing Organization Address City/State/ZIP Code Phon e Number [facility] [address] [place] [address] LABORATORY-CENTRAL 2000 LABORATORY from Last 3 Months Insurance Payer Benefit Plan / Subscriber ID Effective Dates Phone Addre ss Type Group [facility] [id number] 2021-Present [address] [employer] [place] [address] Advance Directives Latest Code Status on File Code Status Date Activated Date Inactivated Comments Full Code 03/16/2022 6:12 AM 03/16/2022 1:48 PM Code Status Discussion: Reviewed Preferences Care Teams Special Education Associate Relationship Specialty Start Date End Date Rebekah Nguyen MD PCP - General Family Practice 10/18/16 [address] [place] [address]
--- OUTSIDE RECORDS SUMMARY | 2022-04-29 12:20 | XMS_ITS | Encounter Summary ---
:2000 Author Organization [facility] Address [address] [place] [address] Care Team Providers Name Role Phone Rebekah Nguyen MD Primary Care Provider Reason for Visit Reason Comments TB Test 2nd for employment Encounter Details Date Type Department Care Team Description 02/01/2022 Immunization Parminder [facility] Health examination of [address] defined subpopulation [place] [address] (Primary Dx) [phone] Social History Tobacco Use Types Packs/Day Years [...] proced ure are in the results section. documented in this encounter Results TB Skin Test (02/03/2022 3:06 PM CDT) P athologist Signature TB Skin Test Negative Induration 0 mm Specimen (Source) Anatomical Collection Method Collection Time Re ceived Time Location / / Volume Laterality Other 02/03/2022 3:06 PM CDT Harvinder Ryder MD POINT OF CARE TEST ENTER/TRISH T ORDERABLES documented in this encounter Visit Diagnoses Diagnosis Health examination of defined subpopulat ion - Primary documented in this encounter Care Teams Camp Counselor Relationship Specialty Start Date End Date Rebekah Nguyen MD PCP - General Family Medicine 01/19/[address] [place] [address] documented as of this encounter
[2022-04-29 12:48] LABS: Slide Review Reflex No
[2022-04-29 13:00] VITALS: BP 107/72; PULSE 67; RESP 14; O2SAT 98
[2022-04-29 13:57] VITALS: BP 122/81; PULSE 74; RESP 20; TEMP 37.4
== END 2022-04-29 13:58 | disposition home or self-care (01) ==
PROVIDERS: Emergency Provider Emergency Medicine Emergency Medical Services; PCP Family Medicine
DX: R51.9 Headache, unspecified (principal); K52.9 Noninfective gastroenteritis and colitis, unspecified
CPT/HCPCS: 36415; 76705; 80048; 80076; 83690; 85025; 99284

== ENCOUNTER 2023-09-26 11:17 | Emergency (ER) | payer OTHER, SELFPAY ==
--- NOTE | 2023-09-26 11:20 | ED_ITS ---
HPI - General Adult General Date Seen: 09/26/23 Chief complaint: Back Injury/Pain Stated complaint: back injury Time Seen by Provider: 09/26/23 11:20 History of Present Illness HPI narrative: 22-year-old female presents to the ER today for evaluation of back pain and back injury. She is generally healthy. She takes control. She was seen in the ER in the past for headache and has a history of gastritis from a previous ER visit. 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 Yesterday evening she was helping the patient get off the toilet. He is heavy set but is normally able to stand and assist with his transfers. On the toilet yesterday he seemed to be weaker than normal in which she tried to help him stand up his legs were weak and he could not bear weight so he is kept on the toilet. She got a gait belt and tried to help him up. He seemed to be able to stand within his legs were weak and giving out on him. She had to use a lot of force to keep him standing up and assist him back on the toilet so he would not fall. She ultimately called another junior administrative assistant and they were able, with difficulty, ache to get him transferred into his wheelchair. The resident was not injured. She noticed at the time of the accident that she was having some pain in her back. It has been persistent since then and is worse this morning. She took Tylenol p.m. and rubbed essential oils on her back last night but is not really helping. The pain is located in her mid and lower back starting at roughly the lower rib cage in and standing down to the top of her pelvis. It feels achy and burning. It is worse when she moves. It does not radiate down her legs. No associated numbness or weakness in her legs. Urination was normal this morning. She has not had any bowel movements today. No fever or chills. No upper back or rib pain. No flank pain. No anterior abdominal pain. Related Data Home Medications Medication Instructions Recorded Confirmed levonorgestrel 0.15 mg-ethinyl tab 01/03/22 estradiol 0.03 mg tablet (Gil (28)) hydroxyzine pamoate 50 mg capsule 50 mg PO DAILY PRN 09/26/23 09/26/23 Previous Rx's Medication Instructions Recorded cyclobenzaprine 10 mg tablet 10 mg PO TID PRN muscle spasm #14 09/26/23 tabs Allergies Allergy/AdvReac Type Severity Reaction Status Date / Time gluten Allergy Verified 04/29/22 11:14 [facility] Social History Smoking Status: Never smoker Do you use any of these nicotine containing products: None Second hand tobacco smoke exposure: No How often do you have a drink containing alcohol: never How often do you have six or more drinks on one occasion: Never AUDIT-C Alcohol total score: 0 Non-prescribed substance use: denies use service: No Exam Narrative: Exam Narrative: Constitutional: Appears well-developed and well-nourished. Alert. Conversant. Non toxic. HENT: Head: Atraumatic. Nose: Nose normal. Mouth/Throat: Oral mucosa is clear and moist. no trismus. Pharynx normal. Tonsils symmetric. No tonsillar enlargement, erythema, or exudate. Eyes: Conjunctivae normal. EOM normal. Pupils equal, round, and reactive to light. No scleral icterus. Neck: Normal range of motion. Neck supple. No tracheal deviation present. Cardiovascular: Normal rate, regular rhythm. No gallop. No friction rub. No murmur heard. Symmetric radial artery pulses Pulmonary/Chest: Effort normal. No stridor. No respiratory distress. No wheezes. No rales. No rhonchi . No tenderness. Abdominal: Soft. Bowel sounds normal. No distension. No mass. No tenderness. No rebound. No guarding. Musculoskeletal: RUE: Normal range of motion. No tenderness. No deformity LUE: Normal range of motion. No tenderness. No deformity RLE: Normal range of motion. No edema. No tenderness. No deformity LLE: Normal range of motion. No edema. No tenderness. No deformity Lymph: No cervical adenopathy. Neurological: Alert and oriented to person, place, and time. Normal strength. CN II-VII intact. No sensory deficit. GCS eye subscore is 4. GCS verbal subscore is 5. GCS motor subscore is 6. Normal coordination Sensory: Normal light touch sensation bilaterally on the anteromedial thigh (L3), medial malleolus (L4), dorsal first web space (L5), lateral malleolus (S1). Strength: 5/5 strength hip flexors (L3) on the rig ht and left 5/5 strength in the quadriceps (L4) on t he right and left 5/5 strength in the tibialis anterior 5/5 strength in the EHL (L5) on the righ t and left 5/5 strength in the gastrocnemius (S1) o n the right and left 5/5 strength in the hamstring on the rig ht and left DTRs: symmetric in the patella (2/4) and in the achilles tendons. Negative straight leg raise bilaterally. Skin: Skin is warm and dry. No rash noted. No pallor. Normal capillary refill. Psychiatric: Normal mood. Normal affect. Const: Vital Signs, click to edit/add: Vital Signs - 24 hr 09/26/23 11:21 Temperature 97.5 F L Pulse Rate [Right Pulse Oximeter] 89 Respiratory Rate 18 Blood Pressure [Ri ght Upper Arm] 121/80 Pulse Oximetry 100 Oxygen Delivery Me thod Room Air Course Vital Signs Vital signs: Initial Vital Signs Temperature 97.5 F L 09/26/23 11:21 Temperature Source Temporal Artery Scan 09/26/23 11:21 Pulse Rate 89 09/26/23 11:21 Respiratory Rate 18 09/26/23 11:21 Blood Pressure 121/80 09/26/23 11:21 Blood Pressure Mean 93 09/26/23 11:21 Blood Pressure Position Sitting 09/26/23 11:21 Pulse Oximetry 100 09/26/23 11:21 Oxygen Delivery Method Room Air 09/26/23 11:21 Vital Signs Temperature 97.5 F L 09/26/23 11:21 Pulse Rate 89 09/26/23 11:21 Respiratory Rate 18 09/26/23 11:21 Blood Pressure 121/80 09/26/23 11:21 Pulse Oximetry 100 09/26/23 11:21 Oxygen Delivery Method Room Air 09/26/23 11:21 Temperature 97.5 F L 09/26/23 11:21 Pulse Rate 89 09/26/23 11:21 Respiratory Rate 18 09/26/23 11:21 Blood Pressure 121/80 09/26/23 11:21 Pulse Oximetry 100 09/26/23 11:21 Oxygen Delivery Method Room Air 09/26/23 11:21 Medical Decision Making MDM Narrative Medical decision making narrative: This patient presented with back pain. Broad differential considered. The patient did not sustain any trauma, therefore x-rays are not necessary due to the low likelihood of fracture or subluxation. No red flag symptoms to suggest CT and/or MRI is indicated at this point. The patient has not had a fever, sad dle/perineal anesthesia, bilateral foot numbness, or bowel or bladder dysfunction. There is no clinical evidence of cauda equina syndrome, discitis, spinal/epidural space hematoma or epidural abscess. The neurological exam is normal and the patient's symptoms seem consistent with a musculoskeletal issues and significant muscle spasm. Pain has improved with interventions in the emergency department. The patient will be discharged with pain medications to use as directed. Ice or heat to the back and stretching exercises. No heavy lifting, bending or twisting. Return if increasing pain, numbness, weakness, or bowel or bladder dysfunction. The patient was advised to schedule follow-up with their primary doctor within 5-7 days to re-assess symptoms. Prescription for muscle relaxers provided. She will use ibuprofen 600 mg 3 times daily and Tylenol as well for pain. We are avoiding opiates for now. Work note provided for light duty so she can avoid re-injuring her back. Return precautions reviewed and questions answered. Discharge Plan Discharge Clinical Impression: Back injury Patient Disposition: Home, Self-Care Condition: Stable Instructions: Back Pain (ED), Lower Back Exercises (ED) Additional Instructions: As we discussed, please avoid activities that can re-injured her back such as lifting more than 5 lb, activities that require bending or twisting her back, lifting objects above shoulder height. It is okay to do light activities and gentle stretching act as her sizes. Use Tylenol if needed for pain. Use ibuprofen 600 mg 3 times daily if needed. Use the prescription muscle x-rays if needed for uncontrolled spasm and pain. Be careful with muscle relaxers because they can cause drowsiness and sedation. It is okay to return to work with light duty on Tuesday. If her back is completely back to normal you can return to full duty. However if her back is still sore, stick to light duty so you do not re-injure it. If you are not completely improved within 7 days, please return to the ER, see your regular doctor, or follow up with the worker's comp doctor through your employer for a recheck. If you have worsening symptoms such as severe pain, numbness or weakness down her leg, inability to urinate or incontinence of bowel bowels, return to the ER immediately. Prescriptions: New cyclobenzaprine 10 mg tablet 10 mg PO TID PRN (Reason: muscle spasm) Qty: 14 0RF No Action levonorgestrel-ethinyl estrad [Gil (28)] 0.15-0.03 mg tablet hydroxyzine pamoate 50 mg capsule 50 mg PO DAILY PRN Follow Up/Referrals: Rebekah Nguyen MD [Primary Care Provider] - Stand Alone Forms: [employer] Info Instructions
[2023-09-26 11:21] VITALS: BP 121/80; PULSE 89; RESP 18; TEMP 36.4; O2SAT 100; BMI 28.3
== END 2023-09-26 12:23 | disposition home or self-care (01) ==
LOC: ED 12:19
PROVIDERS: Emergency Provider Emergency Medicine; PCP Family Medicine
DX: M54.50 Low back pain, unspecified (principal); X50.0XXA Overexertion from strenuous movement or load, initial encounter; Y99.0 Civilian activity done for income or pay
CPT/HCPCS: 99282; 99283

== ENCOUNTER 2023-10-29 13:44 | Emergency (ER) | payer BC, SELFPAY ==
[2023-10-29 13:49] VITALS: BP 129/71; PULSE 130; RESP 20; TEMP 37.4; O2SAT 95; BMI 28.7
[2023-10-29 14:30] LABS: Appearance Urine Clear (Clear); Bilirubin Urine 1+ (Negative); Blood Urine Negative (Negative); Color Urine Yellow (Yellow); Glucose Urine Negative (Negative); Ketones Urine 1+ (Negative); Leukocyte Esterase Urine Negative (Negative); Nitrite Urine Negative (Negative); Protein Urine Negative (Negative); Specific Gravity Urine 1.025 (1.000-1.030); Urobilinogen Urine 0.2 (0.2-1.0)
[2023-10-29] MEDS: LACTATED RINGERS 1000 ML 1,000 ML IV (14:30)
[2023-10-29 14:31] LABS: Ur HCG Qualitative* Negative (Negative)
[2023-10-29] MEDS: ONDANSETRON 2 MG/ML inj 4 MG IVP (14:32)
[2023-10-29 14:47] LABS: RBC Urine 0-2 (0-2); WBC Urine 0-2 (0-5)
[2023-10-29 14:48] LABS: Bacteria Urine Moderate; Mucus Urine Many; Squamous Epithelial Cell Urine Moderate (None-Few)
--- NOTE | 2023-10-29 14:50 | ED.NAVMDI ---
HPI - Nausea/Vomiting/Diarrhea General Date Seen: 10/29/23 Chief complaint: Nausea/Vomiting Stated complaint: excessive diarrhea, unable to keep water down Time Seen by Provider: 10/29/23 13:46 Source: patient Mode of arrival: ambulatory Limitations: no limitations History of Present Illness HPI Narrative: Patient is a 23-year-old female presenting to the emergency department for nausea/vomiting/diarrhea. States starting last night she was feeling unwell but was not having too many symptoms. Woke up today feeling extremely nauseated and has vomited several times today. Has not been able to eat or drink anything his every time she tries she vomits. Has also had multiple episodes of dry heaving. Has also states she has had normal episodes of watery diarrhea today she has lost track. 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 She states she feels very dehydrated. Has not used any recent antibiotics. Is not aware of any other sick contacts. Denies fevers, chills, lightheadedness, dizziness, chest pain, shortness of breath. She states she feels very anxious. Is having mild diffuse abdominal tenderness. Denies dysuria, polyuria, vaginal bleeding or discharge. Related Data Home Medications Medication Instructions Recorded Confirmed levonorgestrel 0.15 mg-ethinyl tab 01/03/22 estradiol 0.03 mg tablet (Gil (28)) hydroxyzine pamoate 50 mg capsule 50 mg PO DAILY PRN 09/26/23 09/26/23 Previous Rx's Medication Instructions Recorded cyclobenzaprine 10 mg tablet 10 mg PO TID PRN muscle spasm #14 09/26/23 tabs ondansetron 4 mg disintegrating 4 mg PO Q6H #20 tabs 10/29/23 tablet Allergies Allergy/AdvReac Type Severity Reaction Status Date / Time gluten Allergy Verified 04/29/22 11:14 Review of Systems Status of ROS: Reports: 10 or more systems reviewed and unremarkable except as noted in History and below PFSH PFS Social History Smoking Status: Never smoker Do you use any of these nicotine containing products: None Second hand tobacco smoke exposure: No How often do you have a drink containing alcohol: never How often do you have six or more drinks on one occasion: Never AUDIT-C Alcohol total score: 0 Non-prescribed substance use: denies use service: No Exam Narrative: Exam Narrative: Const: Well-nourished, Well-developed, in moderate distress, appears anxious Eyes: PERRL, no conjunctival injection, and symmetrical lids HENT: Atraumatic external nose and ears. Moist mucous membranes. Neck: Symmetric, trachea midline, No thyromegaly. CVS: Tachycardic No murmurs or gallops. Peripheral pulses 2+ and equal in all extremities RESP: Unlabored respiratory effort. Clear to auscultation bilaterally. GI: Nontender/Nondistended, No rebound or guarding. MSK:Extremities w/o deformity, Normal Active ROM Skin: Warm, Dry. No rashes or lesions. Neuro: Normal Muscle tone, No focal neurological deficits. Psych: Awake, Alert, & Oriented x3. Appropriate mood and affect. Const: Vital Signs, click to edit/add: Vital Signs - 24 hr 10/29/23 13:49 10/29/23 16:38 Temperature 99.3 F Pulse Rate [Right Pulse Oximeter] 130 H 117 H Respiratory Rate 20 Blood Pressure [Ri ght Upper Arm] 129/71 Pulse Oximetry 95 Oxygen Delivery Me thod Room Air Course Vital Signs Vital signs: Initial Vital Signs Temperature 99.3 F 10/29/23 13:49 Temperature Source Temporal Artery Scan 10/29/23 13:49 Pulse Rate 130 H 10/29/23 13:49 Respiratory Rate 20 10/29/23 13:49 Blood Pressure 129/71 10/29/23 13:49 Blood Pressure Mean 90 10/29/23 13:49 Blood Pressure Position Sitting 10/29/23 13:49 Pulse Oximetry 95 10/29/23 13:49 Oxygen Delivery Method Room Air 10/29/23 13:49 Vital Signs Temperature 99.3 F 10/29/23 13:49 Pulse Rate 130 H 10/29/23 13:49 Respiratory Rate 20 10/29/23 13:49 Blood Pressure 129/71 10/29/23 13:49 Pulse Oximetry 95 10/29/23 13:49 Oxygen Delivery Method Room Air 10/29/23 13:49 Temperature 99.3 F 10/29/23 13:49 Pulse Rate 117 H 10/29/23 16:38 Respiratory Rate 20 10/29/23 13:49 Blood Pressure 129/71 10/29/23 13:49 Pulse Oximetry 95 10/29/23 13:49 Oxygen Delivery Method Room Air 10/29/23 13:49 Medications Administered Medications: Discontinued Medications Generic Name Dose Route Start Last Admin Trade Name Maxi PRN Reason Stop Dose Admin Lactated Ringer's 1,000 mls @ 1,000 mls/hr 10/29/23 14:14 10/29/23 15:35 Lactated Ringers 1000 Ml IV 10/29/23 15:13 Infused .Q1H ONE Infusion Ondansetron HCl 4 mg 10/29/23 14:14 10/29/23 14:32 Ondansetron 2 Mg/Ml Inj IVP 10/29/23 14:15 4 mg ONCE ONE Administration MDM - Nausea/Vomiting/Diarrhea MDM Narrative Medical decision making narrative: Patient is a 23-year-old female presenting to the emergency department for nausea, vomiting, diarrhea. Since she states she has had several watery a diarrhea today we will check her for C diff. Will also do a COVID/flu/RSV. CBC, CMP also ordered along with a lipase to look for signs of pancreatitis. Urine test and urinalysis ordered. Patient given a L of fluids and Zofran for nausea. States she is not needing anything for pain at this time. Will hold off on doing a CT scan pending the rest of lab work and treatment as I do not want to expose her to unnecessary radiation. After the medication patient is feeling much better. Her lab work returned showing no concerning abnormalities. Urinalysis does not appear to show a UTI. COVID/flu/RSV is negative. She did supply stool sample was C diff negative. She is doing much better this time and I do not believe abdominal imaging is necessary. Symptoms are likely secondary to some viral GI infection. She is still slightly tachycardic at 01:17 but is appearing much better and is feeling well and has been able to take p.o. intake. She still might be slightly dehydrated but otherwise I do not believe imaging is necessary. She will be discharged home at this time. She will be given Zofran. She is agreeable to this plan. Lab Data Labs: Lab Results 10/29/23 10/29/23 10/29/23 Range/Units 14:14 14:20 14:35 WBC 9.94 (4.50-11.00) K/uL RBC 4.99 (4.00-5.20) m/uL Hgb 16.0 (12.0-16.0) gm/dL Hct 45.7 (33.0-51.0) % MCV 92 (80-100) fL MCH 32 (26-34) pg MCHC 35 (32-36) gm/dL RDW Coeff of Ramez 11.8 (11.5-15.5) % Plt Count 268 (140-440) K/uL Neut % (Auto) 92.8 H (42.0-72.0) % Lymph % (Auto) 4.2 L (20-44) % [place] % (Auto) 1.4 (0.0-11.0) % Eos % (Auto) 0.4 (0.0-7.0) % Baso % (Auto) 0.3 (0.0-3.0) % Neut # (Auto) 9.20 H (1.7-7.0) K/uL Lymph # (Auto) 0.40 L (0.90-2.90) K/uL [place] # (Auto) 0.10 (0.00-0.90) K/UL Eos # (Auto) 0.04 (0.00-0.50) K/uL Baso # (Auto) 0.03 (0.00-0.30) K/uL Abs Immat Gran (auto) 0.09 (0.00-0.30) K/uL Imm/Tot Granulo (auto) 0.9 % Sodium 139 (135-149) mmol/L Potassium 3.9 (3.6-5.1) mmol/L Chloride 110 (96-114) mmol/L Carbon Dioxide 19 L (20-32) mmol/L Anion Gap 10 (7-15) mEq/L BUN 15 (5-24) mg/dL Creatinine 0.7 (0.5-1.5) mg/dL Estimated Creat Clear 105.16 Estimated GFR 126 ml/min Glucose 104 (60-115) mg/dL Calcium 9.5 (8.4-10.6) mg/dL Total Bilirubin 0.7 (0.1-1.5) mg/dL AST 26 (12-35) U/L ALT 23 (4-35) U/L Alkaline Phosphatase 72 (40-150) U/L Total Protein 8.2 (6.0-8.3) g/dL Albumin 4.8 (3.3-5.0) g/dL Lipase 64 (23-300) U/L Urine Color Yellow (Yellow) Urine Appearance Clear (Clear) Urine pH 6.0 (5.0-8.5) Ur Specific [place] 1.025 (1.000-1.030) Urine Protein Negative (Negative) Urine Glucose (UA) Negative (Negative) Urine Ketones 1+ A (Negative) Urine Blood Negative (Negative) Urine Nitrite Negative (Negative) Urine Bilirubin 1+ A (Negative) Urine Urobilinogen 0.2 (0.2-1.0) Ur Leukocyte Esterase Negative (Negative) Urine RBC 0-2 (0-2) Urine WBC 0-2 (0-5) Ur Squamous Epith Cells Moderate A (None-Few) Urine Bacteria Moderate A (None) Urine Mucus Many A (None) Urine HCG, Qual Negative (Negative) Stl C. diff Tox B Gene Negative (Negative) Stl C. diff [id number] PRESUMPTIVE NEGATIVE (Negative) SARS-CoV-2 (PCR) Negative SARS-CoV-2 (Negative) Influenza Type A (PCR) Negative PCR FLU A (Negative) Influenza Type B (PCR) Negative PCR FLU B (Negative) RSV (PCR) Negative PCR RSV (Negative) Discharge Plan Discharge Clinical Impression: Nausea & vomiting Qualifiers: Vomiting type: unspecified Qualified Code(s): R11.2 - Nausea with vomiting, unspecified Patient Disposition: Home, Self-Care Condition: Improved Instructions: Acute Nausea and Vomiting (DC) Additional Instructions: Take the Zofran as needed for nausea. Make sure you stay well hydrated. Return to emergency department for new or worsening symptoms. Prescriptions: New ondansetron 4 mg tablet,disintegrating 4 mg PO Q6H Qty: 20 0RF No Action levonorgestrel-ethinyl estrad [Gil (28)] 0.15-0.03 mg tablet hydroxyzine pamoate 50 mg capsule 50 mg PO DAILY PRN cyclobenzaprine 10 mg tablet 10 mg PO TID PRN (Reason: muscle spasm) Qty: 14 0RF Follow Up/Referrals: Rebekah Nguyen MD [Primary Care Provider] - Stand Alone Forms: [employer] Info Instructions
--- OUTSIDE RECORDS SUMMARY | 2023-10-29 14:52 | XMS_ITS | Continuity of Care Document ---
Author Name [facility] Organization [facility] Care Team Providers Care Multiple Games Dealer Name Role Phone [facility] Unavailable Unavailable Social History Combined list of available smoking, tobacco, and other social history from Department of Defense and Veterans Affairs facilities. Social History Type Response Date Comment Sourc e This section is an empty social history section. [facility]
--- OUTSIDE RECORDS SUMMARY | 2023-10-29 14:53 | XMS_ITS | Clinical Summary ---
Author Name Unknown Organization [facility] er Address [address] [place] [address] Care Team Providers Care [employer] Administrator Name Role Phone Rebekah Nguyen MD Primary Care Provider Immunizations Name Administration Dates Next Due DTaP 2002,2002,2002 DTaP / Hib 09/14/2003 DTaP, Unspecified 2002,2002,04/16/20 02 H1N1 All Forms 08/15/2009 H1N1 Inj 10/01/2009 HPV 9-Valent 09/24/2015 HPV, Quadrivalent 10/31/2014 Hep A, 2 Dose 09/24/2015,10/31/2014 Hep B / HiB 2002,2002 Hep B, Adolescent or Pediatric 2002 IPV 03/07/2008, 3,2002,04/16 Influenza 6mo-64yrs Quad Pre servative Free IM 04/19/2018,05/20/2017,05/17/2016 Influenza TIV (IM) 05/17/2016,05/12/2012 Influenza, Unspecified 06/13/2015,2012,05/12/2012,04/12,08/15/2009 MMR 03/07/2008,03/26/2003 Meningococcal Conjugate 04/19/2018 Meningococcal, Unspecified 10/31/2014 PPD Test 02/01/2022,01/25/2022 Pneumococcal Conjugate 2002,2002, Tdap 03/22/2013 Varicella 03/07/2008,03/26/2003 Social History Tobacco Use Types Packs/Day Years Used Date Smoking Tobacco: Never Assessed Sex and Gender Information Value Date Recorded Sex Assigned at Not on file Gender Identity Not on file Sexual Orientation Not on file Last Filed Vital Signs [...] Health Maintenance Due Date Last Done Comments Pap Smear 2002 COVID-19 Vaccine ( season) 2023 Influenza Vaccine (Season Ended) 2024 04/19/2018, 05/20/2017, 05/17/2016, Additional history exists DTaP,Tdap,and Td Vaccines (7 - Td or Tdap) 09/24/2032 09/24/2022, 03/22/2013, 09/14/2003, Additional history exists Pneumococcal Vaccine: Pediatrics (0 to 5 Years) and At-Risk Patients (6 to 64 Years) Aged Out 2002, 2002, 2002 No longer eligible based on patient's age to complete this topic HPV Vaccines Completed 09/24/2015, 10/31/2014 Care Teams [employer] Administrator Relationship Specialty Start Date End Date Rebekah Nguyen MD [address] [place] [address] PCP - General Family Medicine 01/19/22
--- OUTSIDE RECORDS SUMMARY | 2023-10-29 14:53 | XMS_ITS | Referral Summary ---
Author Name Unknown Organization [facility] Address [address] [place] [address] Care Team Providers Care Inbound Customer Service Representative Name Role Phone Elsewhere, Pcp Primary Care Provider Unavailabl e Source Comments Patient records contain information from all sites at [facility]. For routine questions regarding patient records, call [phone] during business hours, M-F 8:00 AM - 5:00 PM Central Time. Record requests for emergency care only can be directed to [phone] at any time.[facility] Allergies Active Allergy Reactions Criticality Noted Date Comments Gluten GI intolerance 03/11/2022 Medications Medication Sig Dispensed Refills Start Date End Date Status acetaminophen (TYLENOL) 500 mg capsule Take by mouth as needed. 04/21/2011 Active albuterol 90 mcg/actuation inhaler Inhale 1-2 puffs. 10/16/2020 Active hydrOXYzine (VISTARIL) 50 mg capsule Take 50 mg by mouth. 12/22/2021 Active levonorgestreL-ethinyl estrad (NORDETTE) 0.15-0.03 mg per tablet Take 1 tablet by mouth daily. 08/21/2021 Active ibuprofen (ADVIL,MOTRIN) 200 mg tablet Take 200 mg by mouth every 6 (six) hours as needed for pain. Active amoxicillin-pot clavulanate (AUGMENTIN) 875-125 mg per tablet Take 1 tablet by mouth every 12 (twelve) hours. 20 tablet 07/12/2022 Active Active Problems Problem Noted Date Diagnosed Date Gastritis 07/12/2022 Headache Unspecified 07/12/2022 Melena 07/12/2022 Abdominal Pain 08/16/2018 Celiac Disease 08/16/2018 Overview: TTG IgA 179.5; confirmed by EGD through [facility] Immunizations Name Administration Dates Next Due 4vHPV (discontinued) 10/31/2014 9vHPV 09/24/2015 DTaP (Infanrix, Tripedia) 2002,2002, 2002 DTaP / Hib 09/14/2003 DTaP, Unspecified 2002,2002,04/16/20 02 H1N1 All Forms 08/15/2009 H1N1 Inj 10/01/2009 HepA Pediatric/Adolescent 09/24/2015,10/31/2014 HepB Pediatric/Adolescent 2002 Hib-HepB 2002,2002 IPV 03/07/2008, 3,2002,04/16 Influenza TIV (IM) 05/17/2016,05/12/2012 Influenza, Injectable, Quadrivalent 06/13/2015 Influenza, Seasonal, Injectable 05/12/2012 Influenza, Unspecified 06/13/2015,2012,05/12/2012,04/12,08/15/2009 MCV4 (Menactra)(Discontinued) 04/19/2018 MCV4 (Menveo) 04/19/2018 MMR 03/07/2008,03/26/2003 Meningococcal ACWY, Unspecified 10/31/2014 Meningococcal, Unspecified 10/31/2014 PCV7 (discontinued) 2002,2002,2001 PPD Test 02/01/2022,01/25/2022 Tdap 09/24/2022,03/22/2013 PEGGY 03/07/2008,03/26/2003 influenza vaccine quad (FLUZONE/FLUARIX) (6 months and older)(PF) 04/19/2018,05/20/2017,05/17/2016 Social History Tobacco Use Types Packs/Day Years Used Date Smoking Tobacco: Never Tobacco Cessation:Counseling Given: Not Answered Alcohol Use Standard Drinks/Week Comments Never 0 (1 standard drink = 0.6 oz pur e alcohol) Nutrition Answer Date Recorded Nutrition: EVOO Fat Source Unknown 01/29 Nutrition: Servings of Fruits/Vegetables per Day Not on file 01/29/2022 Dental Answer Date Recorded Dental: Regular Dentist Unknown 01/30/20 Sex and Gender Information Value Date Recorded Sex Assigned at Not on file Gender Identity Not on file Sexual Orientation Not on file Last Filed Vital Signs Vital Sign Reading Time Taken Comments Blood Pressure 125/76 09/24/2022 9:31 PM CDT Pulse 97 09/24/2022 9:31 PM CDT Temperature 36.5 ??C (97.7 ??F) 09/24/2022 9:31 PM CD T Respiratory Rate 20 09/24/2022 10:08 PM CDT Oxygen Saturation 100% 09/24/2022 9:31 PM CDT Inhaled Oxygen Concentration - - Weight 74.6 kg (164 lb 7.4 oz) 09/24/2022 9:24 P M CDT Height 157 cm (5' 1.81) 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 If exposure to HIV infection occurred <14 days ago, contact the laboratory to request addition of HIV-1 RNA detection / quantification test. HIV-1 p24 Ag Screen, P Negative Negative 09/27/2022 10:36 AM CDT ECLR Comment: Negative result does not rule out HIV infection. If exposure to HIV infection occurred <14 days ago, contact the laboratory to request addition of HIV-1 RNA detection / quantification test. HIV-1 Ab Screen, P Negative Negative 2022 10:36 AM CDT ECLR Comment: Negative result does not rule out HIV infection. If exposure to HIV infection occurred <14 days ago, contact the laboratory to request addition of HIV-1 RNA detection / quantification test. HIV-2 Ab Screen, P Negative Negative 2022 10:36 AM CDT ECLR Comment: Negative result does not rule out HIV infection. If exposure to HIV infection occurred <14 days ago, contact the laboratory to request addition of HIV-1 RNA detection / quantification test. Blood (Blood, Venous) 09/24/2022 10:02 PM CDT 09/25/2022 8:41 PM CDT Dolores Mckinnon P.A.-C., P.A., M.S. LAB LEEANN ROBIOLOGY - BLOOD ORDERABLES [facility] [address] [place] [id number], [facility] ECLR [facility] in [place] [address] [place] [id number] from Last 3 Months or Most Recently Relevant to Health Maintenance Care Teams Inbound Customer Service Representative Relationship Specialty Start Date End Date Elsewhere, Pcp PCP - General 03/04/19
--- OUTSIDE RECORDS SUMMARY | 2023-10-29 14:53 | XMS_ITS ---
Author Name Unknown Organization [facility] Address [address] [place] [address] Care Team Providers Care Outsole Caser Name Role Phone Unavailable Unavailable Unavailable Surgery Details Not on file Complications Check Surgery Details section. Procedure Estimated Blood Loss Check Surgery Details section. Procedure Findings Check Surgery Details section. Procedure Specimens Taken Check Surgery Details section.
--- OUTSIDE RECORDS SUMMARY | 2023-10-29 14:53 | XMS_ITS | Clinical Summary ---
Author Name Unknown Organization [facility] Address [place], [place] [address] Care Team Providers Care Cone Machine Feeder Name Role Phone Rebekah Nguyen MD Primary Care Provider Allergies Active Allergy Reactions Criticality Noted Date Comments Gluten *Unknown Unknown 03/11/2022 Medications Medication Sig Dispensed Refills Start Date End Date Status hydrOXYzine pamoate (VISTARIL) 50 mg capsuleIndications :Anxiety Take 1 Capsule (50 mg) by mouth at bedtime if needed for Anxiety (sleep). 90 Capsule 3 4 Active drospirenone-ethin yl estradioL (DILIP) 3-0.02 mg tabletIndications: Encounter for counseling regarding contraception Take 1 Tablet by mouth once daily. 84 Tablet 3 4 Active albuterol HFA (Ventolin HFA) 90 mcg/actuation inhalerIndications :Mild intermittent reactive airway disease without complication Inhale 2 Puffs by mouth every 4 hours if needed for Shortness Of Breath or Wheezing. 18 g 4 Active hydrOXYzine pamoate (VISTARIL) 50 mg capsule Take 50 mg by mouth once daily if needed. 4 Active cyclobenzaprine (FLEXERIL) 10 mg tabletIndications: Back pain without radiation Take 1 Tablet (10 mg) by mouth at bedtime if needed for Muscle Spasm. 30 Tablet 4 Active naproxen (NAPROSYN) 500 mg tabletIndications: Back pain without radiation,Encounte r related to worker's compensation claim TAKE 1 TABLET BY MOUTH TWICE DAILY WITH MEALS FOR 5 DAYS. AFTER SCHEDULED FOR 5 DAYS, TAKE TWICE DAILY NEEDED 28 Tablet Active cyclobenzaprine (FLEXERIL) 10 mg tablet Take 10 mg by mouth three times daily. 4 10/12/19 24 Discontinued(Reo rder (E-cancel not sent)) naproxen (NAPROSYN) 500 mg tabletIndications: Back pain without radiation,Encounte r related to worker's compensation claim Take 1 Tablet (500 mg) by mouth two times daily with meals for 5 days. After scheduled for 5 days, take twice daily as needed for pain 28 Tablet 4 10/24/19 24 Discontinued Active Problems No known active problems Encounters Date Type Department Care Team Description 10/27/2023 1:35 PM CDT Office Visit [facility] [address] [place] [address] Rebekah Nguyen MD Occ Med (DOI 09/25/2023 back) 10/27/2023 Travel 10/24/2023 Refill [facility] [address] [place] [address] Rebekah Nguyen MD Refill Request (Naproxen) 10/12/2023 8:20 AM CDT Office Visit [facility] [address] [place] [address] Rebekah Nguyen MD Occ Med (DOI 09/25/2023, Back and Right shoulder) 10/12/2023 Telephone [facility] [address] [place] [address] Rebekah Nguyen MD Follow Up (appointment notes/) 10/12/2023 Travel from Last 3 Months Immunizations Name Administration Dates Next Due DTaP 2002,2002,2002 DTaP-HIB (TriHIBIT) 09/14/2003 HIB-HepB (Comvax) 2002,2002 HPV 9 (Gardasil 9) 09/24/2015 Hepatitis A (Peds) 09/24/2015,10/31/2014 Hepatitis B (Peds) 2002 Human Papilloma Virus Vaccine 10/31/2014 Inactivated Polio Vaccine 03/07/2008,,2002,04/16 Influenza Virus, Unspecified 06/13/2015, 04/16/2013,05/12/2012,04/12,08/15/2009 Influenza, IIV4 04/19/2018,05/20/2017,05/17/2016 MMR, Unspecified 03/07/2008,03/26/2003 Meningococcal Vaccine 10/31/2014 Meningococcal Vaccine (Menveo) 04/19/2018 Pneumococcal conj 7-Valent (Prevnar 7) 3,2002,2002 Tdap 09/24/2022,03/22/2013 Varicella Vaccine 03/07/2008,03/26/2003 Family History Medical History Relation Name Comments Hypothyroidism Brother PTSD Brother Hypothyroidism Mother Other Mother pancreas remove d for sphincter of thanh dysfunction Depression Sister Relation Name Status Comments Brother Mother Sister Social History Tobacco Use Types Packs/Day Years Used Date Smoking Tobacco: Never Passive Smoke Exposure: Never Smokeless Tobacco: Never Tobacco Cessation:Counseling Given: Yes Alcohol Use Standard Drinks/Week Comments No 0 (1 standard drink = 0.6 oz pur e alcohol) PHQ-2 Answer Date Recorded PHQ-2 TOTAL SCORE 4 12/16/2022 Social Connections Answer Date Recorded Frequency of Communication with Friends and Fami ly 0 05/05/2023 Financial Resource Strain Answer Date R ecorded Difficulty of Paying Living Expenses 2 05/05/2023 Difficulty of Paying Living Expenses 1 05/05/2023 Food Insecurity Answer Date Recorded Worried About Running Out of Food in the Last Ye ar 1 05/05/2023 Transportation Needs Answer Date Record ed Lack of Transportation (Medical) 1 05/05/2023 Housing Stability Answer Date Recorded Unable to Pay for Housing in the Last Year 1 05/05/2023 Sex and Gender Information Value Date Recorded Sex Assigned at Not on file Gender Identity Not on file Sexual Orientation Not on file Obstetrics History Para Term AB IAB SAB Ectopic Multiple Livin g Live Births 0 0 0 0 0 0 0 0 0 0 0 Last Filed Vital Signs Vital Sign Reading Time Taken Comments Blood Pressure 117/79 10/27/2023 1:35 PM CDT Pulse 69 10/27/2023 1:35 PM CDT Temperature 36.7 ??C (98.1 ??F) 05/28/2022 9:02 AM CS T Respiratory Rate 22 03/16/2022 10:38 AM CDT Oxygen Saturation 99% 10/27/2023 1:35 PM CDT Inhaled Oxygen Concentration - - Weight 74.1 kg (163 lb 6.4 oz) 10/27/2023 1:35 P M CDT Height 160.2 cm (5' 3.07) 07/07/2023 2:09 PM CS T Body Mass Index 28.88 07/07/2023 2:09 PM GREASE MONKEY Plan of Treatment Upcoming Encounters Date Type Department Care Team (Late st Contact Info) Description 11/17/2023 2:00 PM CDT Office Visit [facility] [address] [place] [address] Rebekah Nguyen MD [address] [place] [address] 12/15/2023 8:40 AM CDT Office Visit [facility] [address] [place] [address] Mukesh Contreras MD [address] [place] [address] Health Maintenance Due Date Last Done Comments Pap test for age 21-65 2023 COVID-19 vaccine series (2022- season) 2023 Chlamydia for age 16-24 04/16/2023 04/16/20 22, 12/22/2021, 10/31/2020, Additional history exists Depression screening for age 12+ 12/17/2023 12/16/2022, 08/21/2021, 01/02/2021, Additional history exists Influenza for age 9-49 03/04/2024 8, 05/20/2017, 05/17/2016, Additional history exists BMI (ht and wt on same day) for age 18+ 07/07/2024 07/07/2023, 05/28/2022, 03/12/2022, Additional history exists Tetanus booster 09/24/2032 09/24/2022, 03/22/2013 Pneumococcal series for age 6-64 Aged Out 2002, 2002, 2002 No longer eligible based on patient's age to complete this topic HPV series for age 9-26 Completed 09/24/2015, 10/31 Meningococcal series for age 11-21 Completed 04/19/2018, 10/31/2014 HIV for age 15-65 Completed 12/22/2021 Hepatitis C screening for age 18-79 Completed 12/22/2021 Tdap Completed 09/24/2022, 03/22/2013 Procedures Procedure Name Priority Date/Time Associated Diagnosis Comments GC CHLAMYDIA TRACH PROBE Add On 04/16/2022 1:35 PM CDT Urinary tract infection symptoms ANTI HIV 1/2 Routine 12/22/2021 9:28 AM CDT Screening examination for STD (sexually transmitted disease) ANTI HCV Routine 12/22/2021 9:28 AM CDT Need for hepatitis C screening test from Last 3 Months or Most Recently Relevant to Health Maintenance Results * GC & CHLAMYDIA DNA PCR [[id number]] (04/16/2022 1:35 PM CDT) Pathologist [facility] [place] CHLAMYDIA PROBE Negative 2:53 PM CDT [facility] N GONORRHOEAE PROBE Negative 04/17/2022 2:53 PM CDT [facility] Other VAGINAL SWAB / Unknown Non-Blood / Unknown 04/16/2022 1:35 PM CDT 04/16/2022 1:46 PM CDT Rebekah Nguyen MD MICROBIOLOGY [facility] [address] [place] [address], * ANTI HCV (12/22/2021 9:28 AM CDT) HEPATITIS C ANTIBODY Non-React farhat Non-React farhat 12/22/2021 6:50 PM CDT [facility] Comment:Antibodies to HCV no t detected; does not exclude the possibility of exposure to HCV. Blood BLOOD SPECIMEN / Unknown Venipuncture / Unknown 12/22/2021 9:28 AM CDT 12/22/2021 9:31 AM CDT Rebekah Nguyen MD SEND OUTS Performing Organization Address City/[facility]/ZIP Co de Phone Number [facility] [address] [place] [address], * ANTI HIV 1/2 (12/22/2021 9:28 AM CDT) HIV-1/HIV-2 ANTIBODY Non-Reacti ve Non-Reacti ve 12/22/2021 7:17 PM CDT [facility] Comment:HIV-1 p24 and HIV-1/ HIV-2 Ab not detected. Blood BLOOD SPECIMEN / Unknown Venipuncture / Unknown 12/22/2021 9:28 AM CDT 12/22/2021 9:31 AM CDT Rebekah Nguyen MD SEND OUTS Performing Organization Address City/[facility] Co de Phone Number [facility] [address] [place] [address], from Last 3 Months or Most Recently Relevant to Health Maintenance Advance Directives * Full Code (Latest Code Status on File) Date Activated Date Inactivated Comments 03/16/2022 6:12 AM 03/16/2022 1:48 PM Question Answer Comments Code Status Discussion: Reviewed Preferences Care Teams Cone Machine Feeder Relationship Specialty Start Date End Date Rebekah Nguyen MD [address] [place] [address] PCP - General Family Practice 10/18/16
--- OUTSIDE RECORDS SUMMARY | 2023-10-29 14:53 | XMS_ITS | Clinical Summary ---
Author Name Unknown Organization [facility] Address [address] [place] [address] Care Team Providers Care Senior Courtroom Clerk Name Role Phone Elsewhere, Pcp Primary Care Provider Unavailabl e Source Comments Patient records contain information from all sites at [facility]. For routine questions regarding patient records, call [phone] during business hours, M-F 8:00 AM - 5:00 PM Central Time. 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 Body Mass Index - - Plan of Treatment Health Maintenance Due Date Last Done Comments Cervical Cancer Screening 2002 Chlamydia and Gonorrhea Screening 2002 Hearing Screening during Well Child Visit 2002 1 week Well Child Check-Up 2002 1 month Well Child Check-Up 2002 2 month Well Child Check-Up 2002 4 month Well Child Check-Up 2002 6 month Well Child Check-Up 2002 9 month Well Child Check-Up 2002 12 month Well Child Check-Up 01/10/2003 15 month Well Child Check-Up 04/12/2003 18 month Well Child Check-Up 07/13/2003 2 year Well Child Check-Up 01/11/2004 30 month Well Child Check-Up 07/13/2004 3 year Well Child Check-Up 01/10/2005 Well Child Check-Up Completed in Past Year 01/10/2005 4 year Well Child Check-Up 01/10/2006 5 year Well Child Check-Up 01/10/2007 6 year Well Child Check-Up 01/11/2008 7 year Well Child Check-Up 01/10/2009 8 year Well Child Check-Up 01/10/2010 9 year Well Child Check-Up 01/10/2011 10 year Well Child Check-Up 01/11/2012 11 year Well Child Check-Up 01/10/2013 12 year Well Child Check-Up 01/10/2014 13 year Well Child Check-Up 01/10/2015 14 year Well Child Check-Up 01/11/2016 15 year Well Child Check-Up 01/10/2017 16 year Well Child Check-Up 01/10/2018 17 year Well Child Check-Up 01/10/2019 18 year Well Child Check-Up 01/11/2020 19 year Well Child Check-Up 01/10/2021 20 year Well Child Check-Up 01/10/2022 21 year Well Child Check-Up 01/10/2023 Well Child Check-Up ([facility]) 01/10/2023 COVID-19 Vaccine ( season) 2023 Influenza Vaccine (#1) 2023 8, 05/20/2017, 05/17/2016, Additional history exists Depression Screening (Annual PHQ-2) 07/04/2023 DTaP,Tdap,and Td Vaccines (7 - Td or Tdap) 09/24/2032 09/24/2022, 03/22/2013, 09/14/2003, Additional history exists Hepatitis B Vaccines Completed 2002, 2002, 2002 Pneumococcal vaccine (0-64 years) Aged Out 2002, 2002, 2002 No longer eligible based on patient's age to complete this topic HPV Vaccines Completed 09/24/2015, 10/31/2014 Meningococcal Vaccine Completed 04/19/2018 , 04/19/2018, 10/31/2014 HIV Screening Completed 09/24/2022 Procedures Procedure Name Priority Date/Time Associated Diagnosis [...] M.S. LAB LEEANN ROBIOLOGY - BLOOD ORDERABLES [facility] [address] [place] [id number], [facility] ECLR [facility] in [address] [address] from Last 3 Months or Most Recently Relevant to Health Maintenance Care Teams Senior Courtroom Clerk Relationship Specialty Start Date End Date Elsewhere, Pcp PCP - General 03/04/19
[2023-10-29 15:02] LABS: Basophils Absolute Auto 0.03 K/uL (0.00-0.30); Basophils Percent Auto 0.3 % (0.0-3.0); Eosinophils Absolute Auto 0.04 K/uL (0.00-0.50); Eosinophils Percent Auto 0.4 % (0.0-7.0); Hematocrit 45.7 % (33.0-51.0); Immature Granulocytes Abs Auto 0.09 K/uL (0.00-0.30); Immature Granulocytes Pct Auto 0.9 %; Lymphocytes Percent Auto 4.2 % (20-44); Mean Corpuscular HGB Conc 35 gm/dL (32-36); Mean Corpuscular Hemoglobin 32 pg (26-34); Mean Corpuscular Volume 92 fL (80-100); Monocytes Percent Auto 1.4 % (0.0-11.0); Neutrophils Percent Auto 92.8 % (42.0-72.0); Platelet Count* 268 K/uL (140-440); RDW Coefficient of Variation % 11.8 % (11.5-15.5); Red Blood Count 4.99 m/uL (4.00-5.20); White Blood Count* 9.94 K/uL (4.50-11.00)
[2023-10-29 15:06] LABS: Albumin* 4.8 g/dL (3.3-5.0); Chloride* 110 mmol/L (96-114); Potassium* 3.9 mmol/L (3.6-5.1); Slide Review Reflex No; Sodium* 139 mmol/L (135-149)
[2023-10-29 15:08] LABS: Creatinine* 0.7 mg/dL (0.5-1.5); Est. Creatinine Clearance* 105.16; Estimated Glomerular Filt Rate 126 ml/min
[2023-10-29 15:09] LABS: Alanine Aminotransferase* 23 U/L (4-35); Alkaline Phosphatase* 72 U/L (40-150); Anion Gap 10 mEq/L (7-15); Aspartate Amino Transferase* 26 U/L (12-35); Bilirubin Total* 0.7 mg/dL (0.1-1.5); Blood Urea Nitrogen* 15 mg/dL (5-24); Carbon Dioxide* 19 mmol/L (20-32); Glucose* 104 mg/dL (60-115); Lipase* 64 U/L (23-300); Total Protein* 8.2 g/dL (6.0-8.3)
[2023-10-29 15:10] LABS: Calcium* 9.5 mg/dL (8.4-10.6)
[2023-10-29 15:32] LABS: PCR FLU A Negative PCR FLU A (Negative); PCR FLU B Negative PCR FLU B (Negative); PCR RSV Negative PCR RSV (Negative); SARS PCR* Negative SARS-CoV-2 (Negative)
[2023-10-29 16:17] LABS: C.Difficile Negative (Negative); CDIFFEPI 027 PRESUMPTIVE NEGATIVE (Negative)
[2023-10-29 16:38] VITALS: PULSE 117
== END 2023-10-29 17:07 | disposition home or self-care (01) ==
PROVIDERS: Emergency Provider Student in an Organized Health Care Education/Training Program; PCP Family Medicine
DX: R11.2 Nausea with vomiting, unspecified (principal)
CPT/HCPCS: 36415; 80053; 81001; 81025; 83690; 85025; 87086; 87493; 87631; 96374; 99283; J2405; J7120

== ENCOUNTER 2023-11-24 08:15 | Outpatient (RCR) | payer OTHER, SELFPAY | END 2023-11-30 15:33 | disposition home or self-care (01) | PROVIDERS: PCP Family Medicine; Visit Provider Family Medicine | DX: M54.9 Dorsalgia, unspecified (principal); Z51.89 Encounter for other specified aftercare | CPT/HCPCS: 97032; 97110; 97140; 97162 ==

== ENCOUNTER 2024-05-08 10:34 | Outpatient (CLI) | payer OTHER, BC, SELFPAY ==
--- OUTSIDE RECORDS SUMMARY | 2024-05-08 10:37 | XMS_ITS | Clinical Summary ---
Author Organization [employer] [facility] Address [place], [place] [address] Care Team Providers Care Deblocker Name Role Phone Rebekah Nguyen MD Primary Care Provider Allergies Active Allergy Reactions Criticality Noted Date Comments Gluten *Unknown Unknown 03/11/2022 Medications Medication Sig Dispensed Refills Start Date End Date Status celecoxib (CELEBREX) 200 mg capsuleIndications :Lumbar radiculopathy Take 1 Capsule (200 mg) by mouth two times daily with meals. 60 Capsule 2 02/01/2024 Active Additional Information Patient taking differently:200 mg Oral TWICE DAILY WITH MEALS,nightly, Reported on 03/01/2024 tiZANidine (ZANAFLEX) 4 mg tabletIndications: Bulge of lumbar disc without myelopathy TAKE 1 TABLET(4 MG) BY MOUTH EVERY 8 HOURS NEEDED FOR MUSCLE SPASM 24 Tablet 2 03/27/2024 Active medication order composer Cranberry D3 K2 Magnesium Biotin Probiotic 04/02/2024 Active tirzepatide, weight loss, (Zepbound) 5 mg/0.5 mL penIndications:Cla ss 1 obesity due to excess calories without serious comorbidity with body mass index (BMI) of 30.0 to 30.9 in adult Inject 5 mg subcutaneous once weekly. 4 mL 05/01/2024 Active drospirenone-ethin yl estradioL (DILIP) 3-0.02 mg tabletIndications: Encounter for counseling regarding contraception Take 1 Tablet by mouth once daily. 84 Tablet 3 05/01/2024 Active albuterol HFA (Ventolin HFA) 90 mcg/actuation inhalerIndications :Mild intermittent reactive airway disease without complication Inhale 2 Puffs by mouth every 4 hours if needed for Shortness Of Breath or Wheezing. 18 g 05/01/2024 Active hydrOXYzine pamoate (VISTARIL) 50 mg capsuleIndications :Anxiety Take 1 Capsule (50 mg) by mouth at bedtime if needed for Anxiety (sleep). 90 Capsule 3 05/01/2024 Active hydrOXYzine pamoate (VISTARIL) 50 mg capsuleIndications :Anxiety Take 1 Capsule (50 mg) by mouth at bedtime if needed for Anxiety (sleep). 90 Capsule 3 07/07/2023 4 Discontinu ed(Reorder (E-cancel not sent)) drospirenone-ethin yl estradioL (DILIP) 3-0.02 mg tabletIndications: Encounter for counseling regarding contraception Take 1 Tablet by mouth once daily. 84 Tablet 3 07/07/2023 4 Discontinu ed(Reorder (E-cancel not sent)) albuterol HFA (Ventolin HFA) 90 mcg/actuation inhalerIndications :Mild intermittent reactive airway disease without complication Inhale 2 Puffs by mouth every 4 hours if needed for Shortness Of Breath or Wheezing. 18 g 07/07/2023 4 Discontinu ed(Reorder (E-cancel not sent)) tirzepatide, weight loss, (Zepbound) 2.5 mg/0.5 mL penIndications:Cla ss 1 obesity due to excess calories without serious comorbidity with body mass index (BMI) of 30.0 to 30.9 in adult Inject 2.5 mg subcutaneous once weekly. 2 mL 03/01/2024 4 Discontinu ed(*Med complete/R egimen complete/L evel of care change) tirzepatide, weight loss, (Zepbound) 5 mg/0.5 mL penIndications:Cla ss 1 obesity due to excess calories without serious comorbidity with body mass index (BMI) of 30.0 to 30.9 in adult Inject 5 mg subcutaneous once weekly. 2 mL 04/11/2024 4 Discontinu ed(Reorder (E-cancel not sent)) Active Problems Problem Noted Date Diagnosed Date Pap smear for cervical cancer screening 05/07/20 24 Overview (05/07/2024): 04/2024 NIL. Plan: Pap/HPV due 04/2027. Family history of gallbladder disease 01/20/2024 Blood in the stool 01/20/2024 Back injury 01/20/2024 Celiac disease 08/16/2018 Overview (01/20/2024): TTG IgA 179.5; confirmed by EGD through [facility] TTG IgA 179.5; confirmed by EGD through [facility] Chronic abdominal pain 08/16/2018 Family history of chronic pancreatitis 9 Encounters Date Type Department Care Team Description 05/01/2024 1:35 PM CDT Office Visit [address] [address] Rebekah Nguyen MD Physical (24 year old); Medication Management 05/01/2024 Travel 04/02/2024 10:40 AM CDT Office Visit [address] [address] Mukesh Contreras MD [facility] (Follow up work comp back injury 09/25/23) 04/02/2024 Travel 03/27/[address] [address] Mukesh Contreras MD Refill Request (Tizanidine) 03/06/[address] [address] Rebekah Nguyen MD Prior Authorization (tirzepatide, weight loss, (Zepbound) 2.5 mg/0.5 mL pen APPROVED (no dates given)) 03/01/2024 2:25 PM CDT Office Visit [address] [address] Rebekah Nguyen MD Weight 03/01/2024 Travel 02/17/2024 10:20 AM CDT Office Visit [facility] [address] [facility], [place] [address] Anabel Tran PA Sinus Problem (congestions, cough, ears feel pressure//Symptoms started 02/09 ) 02/17/2024 Travel from Last 3 Months Immunizations Name Administration Dates Next Due DTaP 2002,2002,2002 DTaP-HIB (TriHIBIT) 09/14/2003 HIB-HepB (Comvax) 2002,2002 HPV 9 (Gardasil 9) 09/24/2015 Hepatitis A (Peds) 09/24/2015,10/31/2014 Hepatitis B (Peds) 2002 Human Papilloma Virus Vaccine 10/31/2014 Inactivated Polio Vaccine 03/07/2008,,2002,04/16 Influenza A (H1N1), Inactivated 08/15/2009 Influenza A (H1N1), Inactiva smiley (Age >=3 Years) 10/01/2009 Influenza Virus, Unspecified 06/13/2015, 04/16/2013,05/12/2012,04/12,08/15/2009 Influenza, IIV3 (Age >=3 years) 05/12/2012 Influenza, IIV4 04/19/2018,05/20/2017,05/17/2016 Influenza, IIV4 (=>6mos) MDV 06/13/2015 MENINGOCOCCAL VACCINE 2 VIAL 2MO-55YO (MENVEO) 04/19/2018 MMR, Unspecified 03/07/2008,03/26/2003 Meningococcal Vaccine 10/31/2014 Pneumococcal conj 7-Valent (Prevnar 7) 3,2002,2002 Tdap [...] Given: Yes Alcohol Use Standard Drinks/Week Comments Not Currently 0 (1 standard drink = 0.6 oz pur e alcohol) PHQ-2 Answer Date Recorded PHQ-2 TOTAL SCORE 0 05/01/2024 Social Connections Answer Date Recorded Do you often feel lonely or isolated from those around you? 0 05/05/2023 Financial Resource Strain Answer Date R ecorded Difficulty of Paying Living Expenses 2 05/05/2023 Difficulty of Paying Living Expenses 1 05/05/2023 Food Insecurity Answer Date Recorded Do you worry your food will run out before you are able to buy more? 1 05/05/2023 Transportation Needs Answer Date Record ed Does lack of transportation keep you from medica l appointments? 1 05/05/2023 Does lack of transportation keep you from work, meetings or getting things that you need? 1 05/05/2023 Housing Stability Answer Date Recorded What is your housing situation today? 1 05/05/2023 Sex and Gender Information Value Date Recorded Sex Assigned at Not on file Gender Identity Not on file Sexual Orientation Not on file Obstetrics History Para Term AB IAB SAB Ectopic Multiple Livin g Live Births 0 0 0 0 0 0 0 0 0 0 0 Last Filed Vital Signs Vital Sign Reading Time Taken Comments Blood Pressure 110/75 05/01/2024 1:52 PM CDT Pulse 84 05/01/2024 1:52 PM CDT Temperature 37.7 ??C (99.8 ??F) 04/02/2024 10:53 AM C DT Respiratory Rate 22 03/16/2022 10:38 AM CDT Oxygen Saturation 100% 05/01/2024 1:52 PM CDT Inhaled Oxygen Concentration - - Weight 72.2 kg (159 lb 3.2 oz) 05/01/2024 1:52 P M CDT Height 160 cm (5' 3) 05/01/2024 1:52 PM CDT Body Mass Index 28.2 05/01/2024 1:52 PM CDT Plan of Treatment Upcoming Encounters Date Type Department Care Team (Late st Contact Info) Description 05/08/2024 11:00 AM ANIMAL CONTROL SUPERVISOR Office Visit [facility] [address] [place] [address] Mukesh Contreras MD [address] [place] [address] Arrived 07/03/2024 10:50 AM ANIMAL CONTROL SUPERVISOR Office Visit [facility] [address] [place] [address] Rebekah Nguyen MD [address] [place] [address] Health Maintenance Due Date Last Done Comments Chlamydia for age 16-24 04/16/2023 04/16/20 22, 12/22/2021, 10/31/2020, Additional history exists COVID-19 vaccine series ( season) 2024 Influenza for age 9-49 03/04/2024 8, 05/20/2017, 05/17/2016, Additional history exists BMI (ht and wt on same day) for age 18+ 05/01/2025 05/01/2024, 03/01/2024, 07/07/2023, Additional history exists Depression screening for age 12+ 05/01/2025 05/01/2024, 12/16/2022, 08/21/2021, Additional history exists Pap test for age 21-65 05/01/2027 05/01/2024 Tetanus booster 09/24/2032 09/24/2022, 03/22/2013 Pneumococcal series for age 6-64 Aged Out 2002, 2002, 2002 No longer eligible based on patient's age to complete this topic HPV series for age 9-26 Completed 09/24/2015, 10/31 HIV for age 15-65 Completed 12/22/2021 Hepatitis C screening for age 18-79 Completed 12/22/2021 Tdap Completed 09/24/2022, 03/22/2013 Procedures Procedure Name Priority Date/Time Associated Diagnosis Comments AMB EPIDURAL STEROID INJECTION Routine 05/08/2024 8:09 AM ANIMAL CONTROL SUPERVISOR Bulge of lumbar disc without myelopathy Lumbar radiculopathy Encounter related to worker's compensation claim Discogenic lumbar pain CHILD AND ADOLESCENT PSYCHOLOGIST THIN PREP PAP - AGES 21-24 ([facility]) Routine 05/01/2024 2:31 PM CDT Cervical cancer screening URINE Routine 03/01/2024 3:01 PM CDT Amenorrhea GC CHLAMYDIA TRACH PROBE Add On 04/16/2022 1:35 PM CDT Urinary tract infection symptoms ANTI HIV 1/2 Routine 12/22/2021 9:28 AM CDT Screening examination for STD (sexually transmitted disease) ANTI HCV Routine 12/22/2021 9:28 AM CDT Need for hepatitis C screening test from Last 3 Months or Most Recently Relevant to Health Maintenance Results * CHILD AND ADOLESCENT PSYCHOLOGIST THIN PREP PAP - AGES 21-24 (ASP64) (05/01/2024 2:31 PM CDT) CLINICAL INFORMATION [employer] [facility] Comment:None given LMP [employer] Comment:03/2024 PREV. PAP [employer] [facility] Comment:FIRST PAP PREV. BX [employer] [facility] Comment:NONE SOURCE CHILD AND ADOLESCENT PSYCHOLOGIST [employer] Comment:Cervix STATEMENT OF ADEQUACY [employer] [facility] Comment: Satisfactory for evaluation. Endocervical/transformation zone component absent. INTERPRETATION/RESUL T [employer] Comment: Cytology Results: Negative for intraepithelial lesion or malignancy. COMMENT [employer] Comment: This Pap test has been evaluated with computer assisted technology. HIRED HELP Sergei [employer] [facility] Comment: DMM, CT(ASCP) CT Screening Location: [place] [address] [address] [facility] THINPREP TIS PAP ALWAYS MESSAGE [employer] Comment: EXPLANATORY NOTE: The Pap is a screening test for cervical cancer. It is not a diagnostic test and is subject to false negative and false positive results. It is most reliable when a satisfactory sample, regularly obtained, is submitted with relevant clinical findings and history, and when the Pap result is evaluated along with historic and current clinical information. Other (Other) 05/01/2024 2:3 1 PM CDT 05/02/2024 9:16 AM CDT Rebekah Nguyen MD PATHOLOGY/CYTOLOGY [facility] [address] [place] [address], [facility] [address] [place] [address] * URINE (03/01/2024 3:01 PM CDT) ,URIN E Negative Negative 03/01/2024 3:12 PM CDT [facility] Urine URINE SPECIMEN / Unknown Non-Blood / Unknown 03/01/2024 3:01 PM CDT 03/01/2024 3:08 PM CDT Rebekah Nguyen MD URINE Performing Organization Address City/[facility]/ZIP Co de Phone Number [facility] [address] [place] [address], * GC & CHLAMYDIA DNA PCR [[id number]] (04/16/2022 1:35 PM CDT) CHLAMYDIA PROBE Negative 2:53 PM CDT [facility] N GONORRHOEAE PROBE Negative 04/17/2022 2:53 PM CDT [facility] Other VAGINAL SWAB / Unknown Non-Blood / Unknown 04/16/2022 1:35 PM CDT 04/16/2022 1:46 PM CDT Rebekah Nguyen MD MICROBIOLOGY [facility] [address] [place] [address], * ANTI HCV (12/22/2021 9:28 AM CDT) HEPATITIS C ANTIBODY Non-React farhat Non-React farhat 12/22/2021 6:50 PM CDT [facility] Comment:Antibodies to HCV no t detected; does not exclude the possibility of exposure to HCV. Blood BLOOD SPECIMEN / Unknown Venipuncture / Unknown 12/22/2021 9:28 AM CDT 12/22/2021 9:31 AM CDT Rebekah Nguyen MD SEND OUTS [facility] [address] [place] [address], * ANTI HIV 1/2 (12/22/2021 9:28 AM CDT) HIV-1/HIV-2 ANTIBODY Non-Reacti ve Non-Reacti ve 12/22/2021 7:17 PM CDT [facility] Comment:HIV-1 p24 and HIV-1/ HIV-2 Ab not detected. Blood BLOOD SPECIMEN / Unknown Venipuncture / Unknown 12/22/2021 9:28 AM CDT 12/22/2021 9:31 AM CDT Rebekah Nguyen MD SEND OUTS Performing Organization Address City/[facility]/ZIP Co de Phone Number [facility] [address] [place] [address], from Last 3 Months or Most Recently Relevant to Health Maintenance Advance Directives * Full Code (Latest Code Status on File) Date Activated Date Inactivated Comments 03/16/2022 6:12 AM 03/16/2022 1:48 PM Question Answer Comments Code Status Discussion: Reviewed Preferences Care Teams Deblocker Relationship Specialty Start Date End Date Rebekah Nguyen MD [address] [place] [address] PCP - General Family Practice 10/18/16
--- OUTSIDE RECORDS SUMMARY | 2024-05-08 10:37 | XMS_ITS | Continuity of Care Document ---
Author Name [facility] Organization [facility] Care Team Providers Care Short Story Writer Name Role Phone [facility] Unavailable Unavailable Social History Combined list of available smoking, tobacco, and other social history from Department of Defense and Veterans Affairs facilities. Social History Type Response Date Comment Sourc e This section is an empty social history section. [facility]
== END 2024-05-08 10:35 | disposition home or self-care (01) ==
LOC: INJ CL 10:35
PROVIDERS: PCP Family Medicine; Visit Provider Family Medicine
DX: M54.16 Radiculopathy, lumbar region (principal)
CPT/HCPCS: 62323; J0702; Q9966

== ENCOUNTER 2024-05-15 16:35 | Emergency (ER) | payer OTHER, BC, SELFPAY ==
[2024-05-15 16:41] VITALS: BP 123/77; PULSE 99; RESP 19; TEMP 36.9; O2SAT 98; BMI 27.3
--- NOTE | 2024-05-15 18:46 | ED_ITS ---
HPI - General Adult General Chief complaint: Back Injury/Pain Stated complaint: back pain, leg numbness Time Seen by Provider: 05/15/24 18:13 Source: patient Mode of arrival: ambulatory Limitations: no limitations History of Present Illness HPI narrative: 24-year-old female presenting today with worsening back pain. Patient has a history of a herniated disc in exactly 1 week ago received an epidural injection. She states that since them the pain has been much worse consistently. She states that her both of her legs feel numb however the left is worse than the right. She denies any motor deficits. She denies any loss of bowel or bladder function. She denies any saddle anesthesia. No fevers or chills. No nausea or vomiting. Pain is at its best when she wakes up in the morning, gets worse as the day goes on. Related Data Home Medications ?Medication ?Instructions ?Recorded ?Confirmed levonorgestrel 0.15 mg-ethinyl tab 01/03/22 estradiol 0.03 mg tablet (Gil (28)) hydroxyzine pamoate 50 mg capsule 50 mg PO DAILY PRN 09/26/23 09/26/23 celecoxib 200 mg capsule mg PO 05/15/24 tirzepatide (weight loss) 7.5 7.5 mg subcut 05/15/24 mg/0.5 mL subcutaneous pen injector (Zepbound) tizanidine 4 mg tablet 4 mg PO 3XD 05/15/24 05/15/24 Previous Rx's ?Medication ?Instructions ?Recorded cyclobenzaprine 10 mg tablet 10 mg PO TID PRN muscle spasm #14 09/26/23 tabs ondansetron 4 mg disintegrating 4 mg PO Q6H #20 tabs 10/29/23 tablet methylprednisolone 4 mg tablets in See Rx Instructions PO .COMPLEX 05/15/24 a dose pack (Medrol (Patrick)) #21 ea Allergies Allergy/AdvReac Type Severity Reaction Status Date / Time gluten Allergy Verified 04/29/22 11:14 Review of Systems Status of ROS: Reports: 10 or more systems reviewed and unremarkable except as noted in History and below [facility] Social History Smoking Status: Never smoker Do you use any of these nicotine containing products: None Second hand tobacco smoke exposure: No How often do you have a drink containing alcohol: never How often do you have six or more drinks on one occasion: Never AUDIT-C Alcohol total score: 0 Non-prescribed substance use: denies use service: No Exam Narrative: Exam Narrative: Well-nourished well-developed patient in no acute distress. Alert and oriented. Answers questions appropriately. Mood and affect are appropriate. Thoughts are goal oriented and rational. No tangential or magical thinking noted. Patient speaks in full sentences without needing to catch her breath. HEENT: Normocephalic atraumatic. Pupils are equally round reactive to light. Extraocular muscles are intact. Conjunctivae are moist without any icterus noted. Moist mucous membranes. Extremities: Bilateral lower extremities are without edema. Skin: Well perfused without any obvious rashes. Back: Normal appearance. No evidence of of infection, swelling. She has no tenderness to palpation over the thoracic or lumbar spine. Strength is 5/5 of the bilateral lower extremities, both proximal and distal muscle groups. There is no footdrop. Straight leg raise is negative. Reflexes are 2+ and symmetric at the knees. Gait is normal. She can get up and down from the bed without difficulty. Const: Vital Signs, click to edit/add: Vital Signs - 24 hr 05/15/24 16:41 Temperature 98.4 F Pulse Rate [Right Pulse Oximeter] 99 Respiratory Rate 19 Blood Pressure [Ri ght Upper Arm] 123/77 Pulse Oximetry 98 Oxygen Delivery Me thod Room Air Course Vital Signs Vital signs: Initial Vital Signs Temperature 98.4 F 05/15/24 16:41 Temperature Source Temporal Artery Scan 05/15/24 16:41 Pulse Rate 99 05/15/24 16:41 Pulse Rhythm Regular 05/15/24 16:41 Respiratory Rate 19 05/15/24 16:41 Blood Pressure 123/77 05/15/24 16:41 Blood Pressure Mean 92 05/15/24 16:41 Blood Pressure Position Sitting 05/15/24 16:41 Pulse Oximetry 98 05/15/24 16:41 Oxygen Delivery Method Room Air 05/15/24 16:41 Vital Signs Temperature 98.4 F 05/15/24 16:41 Pulse Rate 99 05/15/24 16:41 Respiratory Rate 19 05/15/24 16:41 Blood Pressure 123/77 05/15/24 16:41 Pulse Oximetry 98 05/15/24 16:41 Oxygen Delivery Method Room Air 05/15/24 16:41 Temperature 98.4 F 05/15/24 16:41 Pulse Rate 99 05/15/24 16:41 Respiratory Rate 19 05/15/24 16:41 Blood Pressure 123/77 05/15/24 16:41 Pulse Oximetry 98 05/15/24 16:41 Oxygen Delivery Method Room Air 05/15/24 16:41 Medical Decision Making MDM Narrative Medical decision making narrative: 24-year-old female with increasing pain post epidural injection. There is no evidence of infection. We will put her on a Medrol Dosepak at this time. Patient is already on Celebrex and tizanidine. She will contact Dr. Contreras's clinic and staff to discuss her symptoms and follow-up. Discharge Plan Discharge Clinical Impression: Back pain Additional Instructions: Take the steroids as prescribed. Continue Celebrex and tizanidine as presc ribed. I would call the clinic where you had your injection to discuss with a nurse the symptoms you are having and to request a follow-up sooner than July. Prescriptions: New methylprednisolone [Medrol (Patrick)] 4 mg tablets,dose pack See Rx Instructions .ROUTE .COMPLEX Qty: 21 0RF Rx Instructions: orally per package directions No Action levonorgestrel-ethinyl estrad [Kurvelo (28)] 0.15-0.03 mg tablet ondansetron 4 mg tablet,disintegrating 4 mg PO Q6H Qty: 20 0RF celecoxib 200 mg capsule PO tizanidine 4 mg tablet 4 mg PO 3XD Zepbound 7.5 mg/0.5 mL pen injector 7.5 mg subcut hydroxyzine pamoate 50 mg capsule 50 mg PO DAILY PRN cyclobenzaprine 10 mg tablet 10 mg PO TID PRN (Reason: muscle spasm) Qty: 14 0RF Follow Up/Referrals: Rebekah Nguyen MD [Primary Care Provider] - Stand Alone Forms: [facility] Info Instructions
--- OUTSIDE RECORDS SUMMARY | 2024-05-15 19:07 | XMS_ITS | Continuity of Care Document ---
Author Name [facility] Organization [facility] Care Team Providers Care Registered Physical Therapist Name Role Phone [facility] Unavailable Unavailable Social History Combined list of available smoking, tobacco, and other social history from Department of Defense and Veterans Affairs facilities. Social History Type Response Date Comment Sourc e This section is an empty social history section. [facility]
--- OUTSIDE RECORDS SUMMARY | 2024-05-15 19:07 | XMS_ITS | Clinical Summary ---
Author Organization [facility] Address [place], [place] [address] Care Team Providers Care Television Cable Installer Name Role Phone Rebekah Nguyen MD Primary Care Provider [phone] Allergies Active Allergy Reactions Criticality Noted Date [...] Anxiety (sleep). 90 Capsule 3 05/01/2024 Active tirzepatide, weight loss, (Zepbound) 7.5 mg/0.5 mL penIndications:Cla ss 1 obesity due to excess calories without serious comorbidity with body mass index (BMI) of 30.0 to 30.9 in adult Inject 7.5 mg subcutaneous once weekly. 2 mL 05/08/2024 Active hydrOXYzine pamoate (VISTARIL) 50 mg capsuleIndications [...] Encounters Date Type Department Care Team Description 05/15/2024 Nurse Triage [facility] [address] [place] [address] Rebekah Nguyen MD Back Pain/problem 05/08/2024 11:00 AM RN INTERNAL MEDICINE Office Visit [facility] at [facility] [address] [place] [address] Mukesh Contreras MD Procedure (L5-S1 ILESI) 05/01/2024 1:35 PM CDT Office Visit [facility] [address] [place] [address] Rebekah Nguyen MD Physical (24 year old); Medication Management 05/01/2024 Travel 04/02/2024 10:40 AM CDT Office Visit [facility] [address] [place] [address] Mukesh Contreras MD [facility] Med (Follow up work comp back injury 09/25/23) 04/02/2024 Travel 03/27/2024 Refill [facility] [address] [place] [address] Mukesh Contreras MD Refill Request (Tizanidine) 03/06/2024 Telephone [facility] [address] [place] [address] Rebekah Nguyen MD Prior Authorization (tirzepatide, weight loss, (Zepbound) 2.5 mg/0.5 mL pen APPROVED (no dates given)) 03/01/2024 2:25 PM CDT Office Visit [facility] [address] [place] [address] Rebekah Nguyen MD Weight 03/01/2024 Travel 02/17/2024 10:20 AM CDT Office Visit [facility] [address] [place] [address] Anabel Tran PA Sinus Problem (congestions, cough, [...] Care Team (Late st Contact Info) Description 07/03/2024 10:50 AM RN INTERNAL MEDICINE Office Visit [facility] [address] [place] [address] Rebekah Nguyen MD [address] [place] [address] 07/16/2024 10:40 AM RN INTERNAL MEDICINE Office Visit [facility] [address] [place] [address] Mukesh Contreras MD [address] [place] [address] Health Maintenance Due Date Last Done Comments [...] Comments AMB EPIDURAL STEROID INJECTION Routine 05/08/2024 12:00 AM RN INTERNAL MEDICINE Bulge of lumbar disc without myelopathy Lumbar radiculopathy Encounter related to worker's compensation claim Discogenic lumbar pain CLINICAL TRIALS MANAGER THIN PREP PAP - AGES 21-24 ([facility]) [...] Recently Relevant to Health Maintenance Results * AMB EPIDURAL STEROID INJECTION (05/08/2024 12:00 AM RN INTERNAL MEDICINE) Mukesh Contreras MD NEUROLOGY ORD * CLINICAL TRIALS MANAGER THIN PREP PAP - AGES 21-24 ([facility]) (05/01/2024 2:31 PM CDT) CLINICAL INFORMATION [facility] Comment:None given LMP [facility] Comment:03/2024 PREV. PAP [facility] Comment:FIRST PAP PREV. BX [facility] [place] Comment:NONE SOURCE CLINICAL TRIALS MANAGER [facility] [place] Comment:Cervix STATEMENT OF ADEQUACY [facility] [place] Comment: Satisfactory for evaluation. Endocervical/transformation zone component absent. INTERPRETATION/RESUL T [facility] Comment: Cytology Results: Negative for intraepithelial lesion or malignancy. COMMENT [facility] Comment: This Pap test has been evaluated with computer assisted technology. PRECISION FARMING COORDINATOR [facility] Comment: DMM, CT(ASCP) CT Screening Location: [address] THINPREP TIS PAP ALWAYS MESSAGE [facility] Comment: EXPLANATORY NOTE: The Pap is a [...] 9:16 AM CDT Rebekah Nguyen MD PATHOLOGY/[facility] [address] [place] [address], [address] [address] * URINE (03/01/2024 3:01 PM CDT) ,URIN E Negative Negative 03/01/2024 3:12 PM CDT [facility] Urine URINE SPECIMEN / Unknown Non-Blood / Unknown 03/01/2024 3:01 PM CDT 03/01/2024 3:08 PM CDT Rebekah Nguyen MD URINE [facility] [address] [place] [address], * GC & CHLAMYDIA DNA PCR [[id number]] (04/16/2022 1:35 PM CDT) CHLAMYDIA PROBE Negative 2:53 PM CDT [facility] N GONORRHOEAE PROBE Negative 04/17/2022 2:53 PM CDT [facility] Other VAGINAL SWAB / Unknown Non-Blood / Unknown 04/16/2022 1:35 PM CDT 04/16/2022 1:46 PM CDT Rebekah Nguyen MD MICROBIOLOGY Performing Organization Address City/[facility]/ZIP Co de Phone Number [facility] [address] [place] [address], * ANTI HCV (12/22/2021 9:28 AM CDT) Pathologist [facility] HEPATITIS C ANTIBODY Non-React farhat Non-React farhat 12/22/2021 6:50 PM CDT [facility] Comment:Antibodies to HCV no t detected; does not exclude the possibility of exposure to HCV. Blood BLOOD SPECIMEN / Unknown Venipuncture / Unknown 12/22/2021 9:28 AM CDT 12/22/2021 9:31 AM CDT Rebekah Nguyen MD SEND OUTS Performing Organization Address [facility] Co de Phone Number [facility] [address] [place] [address], [place] * ANTI HIV 1/2 (12/22/2021 9:28 AM CDT) Pathologist [facility] HIV-1/HIV-2 ANTIBODY Non-Reacti ve Non-Reacti ve 12/22/2021 7:17 PM CDT [facility] Comment:HIV-1 p24 and HIV-1/ HIV-2 Ab not detected. Blood BLOOD SPECIMEN / Unknown Venipuncture / Unknown 12/22/2021 9:28 AM CDT 12/22/2021 9:31 AM CDT Rebekah Nguyen MD SEND OUTS Performing Organization Address City/[facility]/ZIP Co de Phone Number [facility] [address] [place] [address], from Last 3 Months or Most Recently Relevant to Health Maintenance Advance Directives * Full Code (Latest Code Status on File) Date Activated Date Inactivated Comments 03/16/2022 6:12 AM 03/16/2022 1:48 PM Question Answer Comments Code Status Discussion: Reviewed Preferences Care Teams Television Cable Installer Relationship Specialty Start Date End Date Rebekah Nguyen MD [address] [place] [address] PCP - General Family Practice 10/18/16
== END 2024-05-15 19:11 | disposition home or self-care (01) ==
PROVIDERS: Emergency Provider Family Medicine; PCP Family Medicine
DX: M54.9 Dorsalgia, unspecified (principal)
CPT/HCPCS: 99283

== ENCOUNTER 2024-06-12 13:00 | Outpatient (RCR) | payer OTHER, BC, SELFPAY | END 2024-09-06 13:25 | disposition home or self-care (01) | PROVIDERS: PCP Family Medicine; Visit Provider Family Medicine | DX: M51.36 Other intervertebral disc degeneration, lumbar region (principal); M54.16 Radiculopathy, lumbar region; M79.18 Myalgia, other site; M54.59 Other low back pain; Z51.89 Encounter for other specified aftercare | CPT/HCPCS: 97012; 97032; 97110; 97140; 97162 ==

== ENCOUNTER 2024-11-19 11:35 | Outpatient (CLI) | payer MEDICAID, SELFPAY | END 2024-11-19 11:36 | disposition home or self-care (01) | LOC: NFLDREF 11-28 00:54 | PROVIDERS: PCP Family Medicine; Referring Provider Family Medicine; Visit Provider Physician Assistant | DX: N30.00 Acute cystitis without hematuria (principal); B96.20 Unspecified Escherichia coli [E. coli] as the cause of diseases classified elsewhere | CPT/HCPCS: 87086 ==

== ENCOUNTER 2025-04-29 13:09 | Emergency (ER) | payer BC, SELFPAY ==
--- OUTSIDE RECORDS SUMMARY | 2025-04-29 13:12 | XMS_ITS | Clinical Summary ---
Author Organization [facility] Address [address] [place] [address] Care Team Providers Care Conflicts Analyst Name Role Phone Rebekah Nguyen MD Primary Care Provider Allergies Active Allergy Reactions Criticality Noted Date Comments Gluten *Unknown Unknown 03/11/2022 Medications medication order composer Cranberry D3 K2 Magnesium Biotin Probiotic 4 Active drospirenone-ethi nyl estradioL (DILIP) 3-0.02 mg tabletIndications :Encounter for counseling regarding contraception Take 1 Tablet by mouth once daily. 84 Tablet 3 4 Active albuterol HFA (Ventolin HFA) 90 mcg/actuation inhalerIndication s:Mild intermittent reactive airway disease without complication (HC) Inhale 2 Puffs by mouth every 4 hours if needed for Shortness Of Breath or Wheezing. 18 g 4 Active hydrOXYzine pamoate (VISTARIL) 50 mg capsuleIndication s:Anxiety Take 1 Capsule (50 mg) by mouth at bedtime if needed for Anxiety (sleep). 90 Capsule 3 4 Active meclizine (ANTIVERT) 25 mg tabletIndications :Dizziness Take 1 Tablet (25 mg) by mouth 3 times daily if needed for Vertigo. 30 Tablet 5 Active nitrofurantoin macrocrystals/mon ohydrate 100 mg capsule Take 100 mg by mouth two times daily. 5 Active fluconazole (Diflucan) 150 mg tabletIndications :Vaginal discharge Take 1 Tablet (150 mg) by mouth once daily. Repeat in 3 days if still symptomatic 2 Tablet 5 Active celecoxib (CELEBREX) 200 mg capsuleIndication s:Lumbar radiculopathy Take 1 Capsule (200 mg) by mouth 2 times daily if needed for Pain. 60 Capsule 2 5 Active tiZANidine (ZANAFLEX) 4 mg tabletIndications :Bulge of lumbar disc without myelopathy Take 1 Tablet (4 mg) by mouth every 8 hours if needed for Muscle Spasm. 60 Tablet 1 5 Active Active Problems Problem Noted Date Diagnosed Date Mild intermittent reactive a irway disease without complication 11/02/2024 Pap smear for cervical cancer screening 05/07/20 [...] Encounters Date Type Department Care Team Description 03/13/2025 11:00 AM CDT Office Visit [facility] [address] [place] [address] Mukesh Contrersa MD Occ Med (Follow Up Back Injury ) 03/13/2025 Travel from Last 3 Months Immunizations Immunization Administration Dates Next Due DTaP 2002,2002,2002 DTaP-HIB [...] Never Smokeless Tobacco: Never Tobacco Cessation:Counseling Given: No Alcohol Use Standard Drinks/Week Comments Not Currently 0 (1 standard drink = 0.6 oz pur e alcohol) PHQ-2 Answer Date Recorded PHQ-2 TOTAL SCORE 0 05/01/2024 Social Connections Answer Date Recorded Do you often feel lonely or isolated from those around you? 0 05/05/2023 Alcohol Use Answer Date Recorded Frequency of Alcohol Consumption Not on file 03/13/2025 Average Number of Drinks Not on file 025 How often do you have five or more drinks on one occasion? 1 03/13/2025 Financial Resource Strain Answer Date R ecorded [...] is your housing situation today? 1 05/05/2023 Comments No Sex and Gender Information Value Date Recorded Sex Assigned at Not on file Legal Sex Female 5:51 AM MANAGER ACCESS Gender Identity Not on file Sexual Orientation Not on file Occupation Industry Job Start Date Job End Date student Not on file Not on file Not on file Obstetrics History Para Term AB IAB SAB Ectopic Multiple Livin g Live Births 0 0 0 0 0 0 0 0 0 0 0 Last Filed Vital Signs Vital Sign Reading Time Taken Comments Blood Pressure 108/73 03/13/2025 11:13 AM CDT Pulse 73 03/13/2025 11:13 AM CDT Temperature 36.7 C (98 F) 03/13/2025 11:13 AM CDT Respiratory Rate 16 10/03/2024 5:30 PM CDT Oxygen Saturation 98% 03/13/2025 11:13 AM CDT Inhaled Oxygen Concentration - - Weight 65.8 kg (145 lb 1.6 oz) 03/13/2025 11:13 AM CDT Height 160 cm (5' 3) 05/01/2024 1:52 PM CDT Body Mass Index 25.7 05/01/2024 1:52 PM CDT Plan of Treatment Upcoming Encounters Date Type Department Care Team (Late st Contact Info) Description 06/13/2025 11:00 AM MANAGER ACCESS Office Visit [facility] [address] [place] [address] Mukesh Contreras MD [address] [place] [address] Health Maintenance Due Date Last Done Comments Influenza Vaccine (#1) 2025 8, 05/20/2017, 05/17/2016, Additional history exists BMI (ht and wt on same day) for age 18+ 05/01/2025 05/01/2024, 03/01/2024, 07/07/2023, Additional history exists Depression screening for age 12+ 05/01/2025 05/01/2024, 12/16/2022, 08/21/2021, Additional history exists Chlamydia for age 16-24 10/03/2025 10/04/19, 04/16/2022, 12/22/2021, Additional history exists Pap test for age 21-65 05/01/2027 05/01/2024 Tetanus booster 09/24/2032 09/24/2022, 03/22/2013 RSV vaccine for adults or (1 - 1-dose 75+ series) 2077 Hepatitis B series for 19+ Completed 11/23, 2002, 2002 Pneumococcal series for age 6-49 Aged Out 2002, 2002, 2002 No longer eligible based on patient's age to complete this topic HPV series for age 9-45 Completed 09/24/2015, 10/31 HIV for age 15-65 Completed 10/03/2024, 12/22/2021 Hepatitis C screening for age 18-79 Completed 10/03/2024, 12/22/2021 Procedures Procedure Name Priority Date/Time Associated Diagnosis Comments ANTI HIV 1/2 Routine 10/03/2024 6:25 PM CDT Screen for STD (sexually transmitted disease) ANTI HCV Routine 10/03/2024 6:25 PM CDT Screen for STD (sexually transmitted disease) GC CHLAMYDIA TRACH PROBE Routine 10/03/2024 5:41 PM CDT Urinary problem PROJECT CONTROL OFFICER THIN PREP PAP - AGES 21-24 ([facility]) Routine 05/01/2024 2:31 PM CDT Cervical cancer screening from Last 3 Months or Most Recently Relevant to Health Maintenance Results * ANTI HCV [76783.2] (10/03/2024 6:25 PM CDT) HEPATITIS C ANTIBODY NON-REACTI VE NON-REACT BETO [facility] Comment: HCV antibody was non-reactive. There is no laboratory evidence of HCV infection. In most cases, no further action is required. However, if recent HCV exposure is suspected, a test for HCV RNA (test code 68678) is suggested. For additional information please refer to http://[employer].Backspaces/faq/SCY29z2 (This link is being provided for informational/ educational purposes only.) Blood BLOOD SPECIMEN / Unknown 10/03/2024 6:25 PM CDT 10/03/2024 6:25 PM CDT Nabor Elise LICENSED MIDWIFE SEND OUTS Final Result [facility] [address] [place] [address], [facility] [address] [place] [address] * ANTI HIV 1/2 [[id number]] (10/03/2024 6:25 PM CDT) HIV AG/AB, 4TH GEN NON-REACT BETO NON-REACT BETO [facility] Comment: HIV-1 antigen and HIV-1/HIV-2 antibodies were not detected. There is no laboratory evidence of HIV infection. PLEASE NOTE: This information has been disclosed to you from records whose confidentiality may be protected by state law. If your state requires such protection, then the state law prohibits you from making any further disclosure of the information without the specific written consent of the person to whom it pertains, or as otherwise permitted by law. A general authorization for the release of medical or other information is NOT sufficient for this purpose. For additional information please refer to http://[email or web address].TheBlogTV/faq/MHC146 (This link is being provided for informational/ educational purposes only.) The performance of this assay has not been clinically validated in patients less than 2 years old. Blood BLOOD SPECIMEN / Unknown 10/03/2024 6:25 PM CDT 10/03/2024 6:25 PM CDT Dick Elise LICENSED MIDWIFE SEND OUTS Final Result [email or web address] [address] [place] [address], [place] [phone] [facility] [address] [place] [address] * GC & CHLAMYDIA DNA PCR [[id number]] (10/03/2024 5:41 PM CDT) CHLAMYDIA PROBE Negative 12:43 AM CDT [facility] N GONORRHOEAE PROBE Negative 10/05/2024 12:43 AM CDT [facility] Other URINE SPECIMEN / Unknown Non-Blood / Unknown 10/03/2024 5:41 PM CDT 10/03/2024 6:40 PM CDT Lorene Guevara NP MICROBIOLOGY Holly l Result [facility] [address] [place] [address], * PROJECT CONTROL OFFICER THIN PREP PAP - AGES 21-24 ([email or web address]) (05/01/2024 2:31 PM CDT) CLINICAL INFORMATION [facility] Comment:None given LMP [facility] [place] Comment:03/2024 PREV. PAP [facility] Comment:FIRST PAP PREV. BX [facility] Comment:NONE SOURCE PROJECT CONTROL OFFICER [facility] [place] Comment:Cervix STATEMENT OF ADEQUACY [facility] Comment: Satisfactory for evaluation. Endocervical/transformation zone component absent. INTERPRETATION/RESUL T [facility] [place] Comment: Cytology Results: Negative for intraepithelial lesion or malignancy. COMMENT [facility] Comment: This Pap test has been evaluated with computer assisted technology. HELP DESK COORDINATOR [facility] [place] Comment: DMM, CT(ASCP) CT Screening Location: [place] [address] [facility] THINPREP TIS PAP ALWAYS MESSAGE [facility] Comment: EXPLANATORY NOTE: The Pap is a [...] 1 PM CDT 05/02/2024 9:16 AM CDT us Rebekah Nguyen MD PATHOLOGY/CYTOLOGY Final Re sult [email or web address] [address] [place] [address], [facility] [address] [place] [address] from Last 3 Months or Most Recently Relevant to [place] [address] WORKERS COMP Advance Directives * Full Code (Latest Code Status on File) Date Activated Date Inactivated Comments 03/16/2022 6:12 AM 03/16/2022 1:48 PM Question Answer Comments Code Status Discussion: Reviewed Preferences Care Teams Conflicts Analyst Relationship Specialty Start Date End Date Rebekah Nguyen MD [address] [place] [address] PCP - General Family Practice 10/18/16
--- OUTSIDE RECORDS SUMMARY | 2025-04-29 13:12 | XMS_ITS | Clinical Summary ---
Author Organization [place] Address [address] [facility] [place] [address] Care Team Providers Care Operational Risk Manager Name Role Phone Rebekah Nguyen MD Primary Care Provider [phone] Allergies No known active allergies Medications MOTRIN 100 MG/5ML OR SUSP None Entered Ac tive UNKNOWN TO PATIENT Similar to prozac, used to treat anxiety/depres cesilia. Pt doesn't know the name, takes it daily Active norethindrone-e thinyl estradiol-iron (ESTROSTEP FE) 1-20/1-30/1-35 MG-MCG tablet Take 1 tablet by mouth daily Active VICTORINO 3-0.02 MG tablet 3 8 Active omeprazole (PRILOSEC) [address] capsule 1 8 Active sertraline (ZOLOFT) 50 MG tablet 1 8 Active triamcinolone (KENALOG) 0.025 % cream 0 8 Active etonogestrel (NEXPLANON) 68 MG IMPL 1 each by Subdermal route once Active albuterol (PROAIR HFA/PROVENTIL HFA/VENTOLIN HFA) 108 (90 Base) MCG/ACT inhaler 1 Active busPIRone (BUSPAR) 5 MG tablet 1 Active hydrOXYzine (VISTARIL) 25 MG capsule 1 Active ketorolac (TORADOL) 10 MG tablet 1 Active levonorgestrel- ethinyl estradiol (AVIANE) 0.1-20 MG-MCG tablet Take 1 tablet by mouth 1 Active omeprazole (PRILOSEC) [address] capsule TAKE ONE CAPSULE BY MOUTH ONE TIME DAILY before a meal 0 Active Active Problems Problem Noted Date Diagnosed Date Celiac disease 08/16/2018 Overview (08/16/2018): TTG IgA 179.5; confirmed by EGD through [facility] Chronic abdominal pain 08/16/2018 Family history of chronic pancreatitis 9 Blood in the stool Family history of gallbladder disease Social History Tobacco Use Types Packs/Day Years Used Date Smoking Tobacco: Never Smokeless Tobacco: Never Alcohol Use Standard Drinks/Week Comments Never 0 (1 standard drink = 0.6 oz pur e alcohol) AUDIT-C Answer Date Recorded Q1: How often do you have a drink containing alc ohol? Never 05/27/2020 Q2: How many drinks containi ng alcohol do you have on a typical day when you are drinking? Not asked 05/27/2020 Q3: How often do you have six or more drinks on one occasion? Never 05/27/2020 Adolescent Education Answer Date Record ed Getting School Help Needed Not on file 03/27 Comments No Sex and Gender Information Value Date Recorded Sex Assigned at Not on file Legal Sex Female 4:34 AM PAN OPERATOR Gender Identity Not on file Sexual Orientation Not on file Last Filed Vital Signs Vital Sign Reading Time Taken Comments Blood Pressure 115/70 10/23/2020 3:01 PM CDT Pulse 91 10/23/2020 3:01 PM CDT Temperature 37.2 C (98.9 F) 10/23/2020 3:01 PM CDT Respiratory Rate 16 10/23/2020 3:01 PM CDT Oxygen Saturation 100% 10/23/2020 3:01 PM CDT Inhaled Oxygen Concentration - - Weight 68.9 kg (152 lb) 10/23/2020 3:01 PM CDT Height 159.1 cm (5' 2.64) 08/14/2018 9:52 AM CS T Body Mass Index 27.24 08/14/2018 9:52 AM PAN OPERATOR Plan of Treatment Not on file Care Teams Operational Risk Manager Relationship Specialty Start Date End Date Rebekah Nguyen MD [address] [address] PCP - General 03/26/20
--- OUTSIDE RECORDS SUMMARY | 2025-04-29 13:12 | XMS_ITS | Clinical Summary ---
Author Organization [facility] Address [address] [place] [address] Care Team Providers Care Ocean Clam Boat Captain Name Role Phone Elsewhere, Pcp Primary Care Provider Unavailabl e Source Comments Patient records contain information from all sites at [facility]. For routine questions regarding patient records, call [phone] during business hours, M-F 8:00 AM - 5:00 PM Central Time. Record requests for emergency care only can be directed to [phone] at any time.[facility] Allergies Active Allergy Reactions Criticality Noted Date Comments Gluten GI intolerance 03/11/2022 Latex Itching,Rash Low 10/21/2024 Tape Medications * This document contains information received from the source organization and may not represent a complete record from that organization. acetaminophen (TYLENOL) 500 mg capsule Take by mouth as needed. 04/21/2011 Active albuterol 90 mcg/actuation inhaler Inhale 1-2 puffs. 10/16/2020 Active hydrOXYzine (VISTARIL) 50 mg capsule Take 50 mg by mouth. 12/22/2021 Active levonorgestreL- ethinyl estrad (NORDETTE) 0.15-0.03 mg per tablet Take 1 tablet by mouth daily. 08/21/2021 Active ibuprofen (ADVIL,MOTRIN) 200 mg tablet Take 200 mg by mouth every 6 (six) hours as needed for pain. Active cefdinir (Omnicef) 300 mg capsuleIndicati ons:Pyelonephri tis Acute Take 1 capsule (300 mg total) by mouth every 12 (twelve) hours. 14 capsule 10/21/2024 Active Active Problems Problem Noted Date Diagnosed Date Gastritis 07/12/2022 Headache Unspecified 07/12/2022 Melena 07/12/2022 Abdominal Pain 08/16/2018 Celiac Disease 08/16/2018 Overview (07/12/2022): TTG IgA 179.5; confirmed by EGD through [facility] Immunizations Immunization Administration Dates Next Due 4vHPV (discontinued) 10/31/2014 [...] drink = 0.6 oz pur e alcohol) Comments No Sex and Gender Information Value Date Recorded Sex Assigned at Not on file Legal Sex Female 2:36 AM ACQUISITIONS LIBRARIAN Gender Identity Not on file Sexual Orientation Not on file Last Filed Vital Signs Vital Sign Reading Time Taken Comments Blood Pressure 123/80 10/21/2024 8:48 PM CDT Pulse 78 10/21/2024 8:48 PM CDT Temperature 37 C (98.6 F) 10/21/2024 8:48 PM CDT Respiratory Rate 74 10/21/2024 8:48 PM CDT Oxygen Saturation 98% 10/21/2024 8:48 PM CDT Inhaled Oxygen Concentration - - Weight 67 kg (147 lb 11.3 oz) 10/21/2024 8:48 PM CDT Height 157 cm (5' 1.81) 09/08/2015 8:47 AM ACQUISITIONS LIBRARIAN Body Mass Index - - Plan of Treatment Health Maintenance Due Date Last Done Comments Cervical/Vaginal Cancer Screening 2002 Chlamydia and Gonorrhea Screening 2002 Depression Screening (Annual PHQ-2) 07/04/2024 COVID-19 Vaccine ( season) 2025 Influenza Vaccine (#1) 2025 8, 05/20/2017, 05/17/2016, Additional history exists DTaP,Tdap,and Td Vaccines (7 - Td or Tdap) 09/24/2032 09/24/2022, 03/22/2013, 09/14/2003, Additional history exists Pneumococcal vaccine (0-49 years) Aged Out 2002, 2002, 2002 No longer eligible based on patient's age to complete this topic IPV Vaccines Completed 03/07/2008, 11/02, 2002, Additional history exists Varicella Vaccines Completed 03/07/2008, 03/26/2003 HPV Vaccines Completed 09/24/2015, 10/31/2014 HIV Screening Completed 09/24/2022, 12/22/2021 Hepatitis B Screening Discontinued 10/03/2024 , 09/24/2022, 12/22/2021 Procedures Procedure Name Priority Date/Time Associated Diagnosis Comments HIV-1/-2 AG AND AB SCREEN, PLASMA STAT 09/24/2022 10:02 PM CDT HEPATITIS B SURFACE ANTIGEN STAT 09/24/2022 10:02 PM CDT from Last [...] 10:02 PM CDT 09/25/2022 8:41 PM CDT us Dolores Mckinnon P.A.-C., P.A., M.S. LAB MICROBIOLOG Y - BLOOD ORDERABLES Final Result [facility] [address] [place] [address], [facility] in [address] [address] * Hepatitis B Surface Antigen (09/24/2022 10:02 PM CDT) HBs Antigen, S Nonreactive Nonreactive 09/25/2022 9:33 PM CDT ECLR Blood (Blood, Venous) 09/24/2022 10:02 PM CDT 09/25/2022 8:41 PM CDT us Dolores Mckinnon P.A.-C., P.A., M.S. LAB MICROBIOLOG Y - BLOOD ORDERABLES Final Result [facility] [address] [place] [address], [facility] in [address] [address] from Last 3 Months or Most Recently Relevant to Health Maintenance Insurance [facility] [place] [address] Care Teams [employer] Boat Captain Relationship Specialty Start Date End Date Elsewhere, Pcp PCP - General 03/04/19
[2025-04-29 13:57] VITALS: BP 125/84; PULSE 87; RESP 18; TEMP 37.2; O2SAT 95; BMI 24.8
[2025-04-29 14:49] LABS: Strep A DNA Probe* NOT DETECTED (Not Detectd)
[2025-04-29 15:02] LABS: PCR FLU A Negative PCR FLU A (Negative); PCR FLU B Negative PCR FLU B (Negative); PCR RSV Negative PCR RSV (Negative); SARS PCR* Negative SARS-CoV-2 (Negative)
[2025-04-29 16:05] VITALS: BP 125/86; PULSE 97; RESP 18; O2SAT 97
--- NOTE | 2025-04-29 16:24 | ED_ITS ---
HPI - General Adult General Date Seen: 04/29/25 Chief complaint: Sore Throat Stated complaint: Sore throat, hard to swallow, ear pain/plugged Time Seen by Provider: 04/29/25 16:03 History of Present Illness HPI narrative: Patient is a 25-year-old, generally healthy young woman here for evaluation of sore throat and raspy voice. She says a couple of days ago she developed some raspiness to her voice but did not developed a sore throat until today. She has had some fullness in her ears for a month or 2 but that isn't any worse. She has not had a fever. She has a cough but feels like it is from junk in her throat, she says her lungs feel fine, she is not short of breath. Eating and drinking without difficulty. She vapes, denies other medical history or substances. Related Data Home Medications ?Medication ?Instructions ?Recorded ?Confirmed levonorgestrel 0.15 mg-ethinyl tab 01/03/22 11/19/24 estradiol 0.03 mg tablet (Gil (28)) hydroxyzine pamoate 50 mg capsule 50 mg PO DAILY PRN 0 09/26/23 11/19/24 celecoxib 200 mg capsule mg PO 05/15/24 11/19/24 tirzepatide (weight loss) 7.5 7.5 mg subcut 05/15/24 0 11/19/24 mg/0.5 mL subcutaneous pen injector (Zepbound) tizanidine 4 mg tablet 4 mg PO 3XD 05/15/24 5 Previous Rx's ?Medication ?Instructions ?Recorded cyclobenzaprine 10 mg tablet 10 mg PO TID PRN muscle s pasm #14 09/26/23 tabs Allergies Allergy/AdvReac Type Severity Reaction Status Date / Time gluten Allergy Verified 11/19/24 11:24 Review of Systems Status of ROS: Reports: 6 or more systems reviewed and unremarkable except as noted in History and below [facility] Social History Smoking Status: Never smoker Do you use any of these nicotine containing products: None Second hand tobacco smoke exposure: No How often do you have a drink containing alcohol: never How often do you have six or more drinks on one occasion: Never AUDIT-C Alcohol total score: 0 Non-prescribed substance use: denies use service: No Exam Narrative: Exam Narrative: Vital signs reviewed In general, alert, nontoxic young woman. Gravelly voice. Head: Normocephalic, atraumatic. Eyes: Sclera clear. Pupils equal and reactive. ENT: Mucous membranes moist. Throat is entirely normal. Tonsils are not edematous, mildly erythematous, no exudate. No evidence of abscess. Neck: Supple without adenopathy. No stridor. Heart: Regular rate and rhythm without murmur. Lungs: Clear. No increased work of breathing, crackles or wheezes. Skin: Warm, dry well perfused. Affect: Normal. Const: Vital Signs, click to edit/add: Vital Signs - 24 hr 04/29/25 13:57 04/29/25 16:05 Temperature 98.9 F Pulse Rate [Right Pulse Oximeter] 87 97 Respiratory Rate 18 18 Blood Pressure [Ri ght Upper Arm] 125/84 125/86 Pulse Oximetry 95 97 Oxygen Delivery Me thod Room Air Room Air Course Course ED Course: Patient had a viral swab and a strep screen both of which are negative. Her exam is reassuring, there is no evidence of significant throat infection such as abscess or epiglottitis. She does appear to have a component of laryngitis and I think might benefit from prednisone. Discussed further testing by way of chest x-ray but she says her lungs really feel fine, I do not hear a pneumonia, she is afebrile, O2 sats normal. I think it is reasonable to discharge home with instructions to return if she develops more concerning symptoms such as anna bility to swallow or difficulty breathing, primary care follow-up if not improving over the next week or so. Ibuprofen and/or Tylenol as needed. Prednisone prescribed from [facility], 40 mg daily for 5 days. Vital Signs Vital signs: Initial Vital Signs Temperature 98.9 F 04/29/25 13:57 Temperature Source Temporal Artery Scan 04/29/25 13:57 Pulse Rate 87 04/29/25 13:57 Respiratory Rate 18 04/29/25 13:57 Blood Pressure 125/84 04/29/25 13:57 Blood Pressure Mean 97 04/29/25 13:57 Blood Pressure Position Supine 04/29/25 13:57 Pulse Oximetry 95 04/29/25 13:57 Oxygen Delivery Method Room Air 04/29/25 13:57 Vital Signs Temperature 98.9 F 04/29/25 13:57 Pulse Rate 87 04/29/25 13:57 Respiratory Rate 18 04/29/25 13:57 Blood Pressure 125/84 04/29/25 13:57 Pulse Oximetry 95 04/29/25 13:57 Oxygen Delivery Method Room Air 04/29/25 13:57 Temperature 98.9 F 04/29/25 13:57 Pulse Rate 97 04/29/25 16:05 Respiratory Rate 18 04/29/25 16:05 Blood Pressure 125/86 04/29/25 16:05 Pulse Oximetry 97 04/29/25 16:05 Oxygen Delivery Method Room Air 04/29/25 16:05 Medical Decision Making Lab Data Labs: Lab Results 04/29/25 Range/Units 14:06 SARS-CoV-2 (PCR) Negative SARS-CoV-2 (Negative) Influenza Type A (PCR) Negative PCR FLU A (Negative) Influenza Type B (PCR) Negative PCR FLU B (Negative) RSV (PCR) Negative PCR RSV (Negative) Group A Strep DNA NOT DETECTED (Not Detectd) Discharge Plan Discharge Clinical Impression: Laryngitis Patient Disposition: Home, Self-Care Condition: Stable Additional Instructions: Use ibuprofen and/or Tylenol as needed for sore throat. Prednisone as prescribed. Your exam today looks good, there is no evidence of abscess or serious infection in your throat. I do not hear anything that sounds like a pneumonia in your lungs. Symptoms are most likely viral and should improve over the next week. If for some reason you are getting worse rather than better, have difficulty swallowing or breathing, return to the emergency department. If no improvement over the next 7-10 days, follow-up with primary care. Prescriptions: No Action levonorgestrel-ethinyl estrad [Kurvelo (28)] 0.15-0.03 mg tablet celecoxib 200 mg capsule PO tizanidine 4 mg tablet 4 mg PO 3XD Zepbound 7.5 mg/0.5 mL pen injector 7.5 mg subcut hydroxyzine pamoate 50 mg capsule 50 mg PO DAILY PRN cyclobenzaprine 10 mg tablet 10 mg PO TID PRN (Reason: muscle spasm) Qty: 14 0RF Follow Up/Referrals: Rebekah Nguyen MD [Primary Care Provider, Family Practice] Stand Alone Forms: MyHealth Info Instructions
--- OUTSIDE RECORDS SUMMARY | 2025-04-29 16:27 | XMS_ITS | Continuity of Care Document ---
Author Organization [facility] Address [address] [facility] [address] [place] [address] Assessment Encounter Date Assessment Date Assessment LastModified by Organization Details LastModified Time 04/03/2025 04/03/2025 ASSESSMENT: Patient is a good candidate for conservative care and the prognosis is for a favorable outcome that achieves the patients' goals. We discussed etiology, activity modifications, home care, and other treatment options. Initially, it is recommended that the patient receive in-office treatment 1 times per week for 8 weeks at which time a re-evaluation will be performed to determine an appropriate change in plan. Initially, treatment will focus on joint manipulation to restore range of motion and reduce pain. We will slowly progress to therapeutic exercises and activities to improve function, strength, and stability may also be used as warranted. If the patient is not responding as expected, more invasive procedures will be discussed along with a referral. All considerations above were discussed with the patient and questions answered to satisfaction. If the patient should have any additional questions, or should the condition evolve or worsen, the patient should not hesitate to contact our office. [email or web address] Not available 04/04/2025 08:10:27 Plan of Treatment Reminders Order Date Submit Date Provider Last Modified By Organization Details Last Modified Time Details Appointments None record ed. Lab None record ed. Referral None record ed. Procedures None record ed. Surgeries None record ed. Imaging None record ed. Medication Orders None record ed. Patient TargetsNo targets recorded. Patient InstructionsNo instructions recorded. Reason for Referral None Reported. Problems Name Problem SNOMED Code Status Onset Date Resolution Date Notes Provider Name and Address Organization Details Recorded Time Thoracic segmental dysfunction 642756206 Active 2024 Handy Canseco [place] [address] [facility], [facility] [place], [address], [facility] 08:10:27 Low back pain 931030734 Active 2024 [place], [place] [address] [facility], [place], [address], [facility] 08:10:27 Lumbar segmental dysfunction 673570578 Active 2024 [place] [address] [facility], [place], [address], [facility] 08:10:27 Somatic dysfunction of sacral spine 453663282 [facility] [place] [address] [facility], [place], [address], [facility] 08:10:28 Problem Notes None recorded. Procedures Surgical History Date Name Laterality Status Provider Name and Address Organization Details Recorded Time 5 33766: Spinal manipulation , 3 to 4 regions completed [facility] [place], [place] [address] [facility], [place], [address], [facility] 04/04/2025 08:10:35 5 [address]: Spinal manipulation , 3 to 4 regions completed Wali G[place]ia, [place] [address] [facility], [place], [address], [facility] 08/10/2024 11:07:08 5 [address]: Spinal manipulation , 3 to 4 regions completed Yony Castillo, [address], [place], [address], [facility] 08/02/2024 18:10:59 Imaging Results None recorded. Procedure Notes None recorded. Medical Equipment None Reported. Medications Name Sig Start Date Stop Date Status Note LastModified by Organization Details LastModified Time celecoxib 200 mg capsule active Not Available Not Available Not Available cyclobenzap rine 10 mg tablet TAKE 1 TABLET BY MOUTH THREE TIMES DAILY NEEDED FOR MUSCLE SPASM active Not Available Not Available No t Available prednisone 10 mg tablet active Not Available Not Available Not Available tizanidine 4 mg tablet active Not Available Not Available Not Available hydroxyzine pamoate 50 mg capsule active Not Available Not Available N ot Available sulfamethox azole 800 mg-trimetho prim 160 mg tablet TAKE 1 TABLET BY MOUTH TWICE DAILY FOR 7 DAYS 04/03 completed Not Available Not Available Not Available hydrocortis one 2.5 % topical cream APPLY TOPICALLY TO THE AFFECTED AREA TWICE DAILY FOR 5 DAYS active Not Available Not Available No t Available methylpredn isolone 4 mg tablets in a dose pack FOLLOW PACKAGE DIRECTION S active Not Available Not Available No t Available ondansetron 4 mg disintegrat ing tablet DISSOLVE 1 TABLET ON THE TONGUE EVERY 6 HOURS active Not Available Not Available No t Available naproxen 500 mg tablet active Not Available Not Available Not Available nitrofurant oin monohydrate /macrocryst als 100 mg capsule TAKE 1 CAPSULE BY MOUTH EVERY 12 HOURS FOR 5 DAYS WITH A MEAL/FOOD 04/03 completed Not Available Not Available Not Available drospirenon e 3 mg-ethinyl estradiol 0.02 mg tablet TAKE 1 TABLET BY MOUTH DAILY active Not Available Not Available No t Available Zepbound 5 mg/0.5 mL subcutaneou s pen injector ADMINISTE R 5 MG UNDER THE SKIN 1 TIME WEEKLY active Not Available Not Available No t Available Zepbound 2.5 mg/0.5 mL subcutaneou s pen injector ADMINISTE R 2.5 MG UNDER THE SKIN 1 TIME WEEKLY active Not Available Not Available No t Available Zepbound 7.5 mg/0.5 mL subcutaneou s pen injector ADMINISTE R 7.5 MG UNDER THE SKIN 1 TIME WEEKLY active Not Available Not Available No t Available Vitals None Recorded Social History None recorded. Functional Status None recorded. Mental Status None recorded. Family History Nothing Reported. Medical History No medical history recorded. Gynecological HistoryNo gynecological history recorded. Obstetrics History GPAL:G 0 P 0 0 0 0 Past Encounters Encounter ID Performer Location Encounter Start Date Encounter Closed Date Diagnosis/Indication Diagnosis SNOMED-CT Code Diagnosis ICD10 Code Diagnosis IMO Codes Diagnosis Note [id number] Handy Canseco [facility] [address] [facility] [place] [address] 04/03/2025 15:26:17 04/05/2025 09:26:39 Lumbar segmental dysfunction 137776401 M99.03 Low back pain 906449082 M54.50 Somatic dy sfunction of sacral spine 497596021 M99.04 Thoracic s egmental dysfunction 193335930 M99.02 Health Concerns Section Related Observation LastModified by Organization Detai ls LastModified Time None Recorded Concern Status LastModified by Organization Details LastModified Time None Recorded Payers Encounter Date Sequence Insurance Name Policy Number Policy [employer] Covered Member ID [employer] Member ID Guarantor Name 04/03/2025 STRATEGIC COMP Kristen Singh Notes Date Note Type Note Provider Name and Address Organization Details Recorded Time 04/03/2025 text/html HPI - Lumbar SpineReported by PatientHPIFor location, patient reportsleft. For quality, patient reportsaching. For severity, patient reportsmoderate. For timing, patient reportsmorning. For aggravating factors, patient reportswalking,lift ing,carrying, andtwisting. For alleviating factors, patient reportsrest. Handy Canseco DC [address] [place] [address], [place], [address], [facility] 04/04/2025 08:10:43 OBGyn Episode No OBEpisode recorded.
--- OUTSIDE RECORDS SUMMARY | 2025-04-29 16:27 | XMS_ITS | Data Portability ---
Author Organization [facility] Address [address] [place] [address] Assessment Encounter Date Assessment Date Assessment LastModified by Organization Details LastModified Time 08/02/2024 08/02/2024 ASSESSMENT: Patient is a good candidate for [...] should not hesitate to contact our office. [email or web address] Not available 08/02/2024 18:09:56 08/10/2024 08/10/2024 ASSESSMENT: Patient is a good candidate for [...] should not hesitate to contact our office. [email or web address] Not available 08/10/2024 11:07:08 04/03/2025 04/03/2025 ASSESSMENT: Patient is a good [...] Organization Details Recorded Time Thoracic segmental dysfunction 697044086 Active 2024 Handy Castano [place] [address] [facility], [place], [address], [facility] 08:10:27 Low back pain 336819777 Active 2024 Handy Canseco [place] [address] [facility], [place], [address], [facility] 08:10:27 Lumbar segmental dysfunction 309061638 Active 2024 Handy Canseco [place] [address] [facility], [place], [address], [facility] 08:10:27 Somatic dysfunction of sacral spine 489567275 Active 2024 [place], [place] [address] [facility], [place], [address], [facility] 08:10:28 Problem Notes None recorded. Procedures Surgical History Date Name Laterality Status Provider Name and Address Organization Details Recorded Time 5 31781: Spinal manipulation , 3 to 4 regions completed Handy Canseco [place] [address] [facility], [place], [address], [facility] 04/04/2025 08:10:35 5 [address]: Spinal manipulation , 3 to 4 regions completed Wali Garsia, [address], [place], [address], [facility] 08/10/2024 11:07:08 5 [address]: Spinal manipulation , 3 to 4 regions completed Yony Castillo, [address], [place], [address], [facility] 08/02/2024 18:10:59 Imaging Results None recorded. Procedure [...] ICD10 Code Diagnosis IMO Codes Diagnosis Note [id number] Yony Castillo DC [facility] [address] [place] [address] 08/02/2024 15:33:33 08/02/2024 18:51:31 Lumbar segmental dysfunction 877508788 M99.03 Low back pain 851715095 M54.50 Somatic dy sfunction of sacral spine 624813146 M99.04 Thoracic s egmental dysfunction 667364272 M99.02 [id number] Wali Garsia DC [facility] [address] [place] [address] 08/10/2024 11:00:04 08/10/2024 11:19:28 Lumbar segmental dysfunction 286772958 M99.03 Low back pain 125880837 M54.50 Somatic dy sfunction of sacral spine 110466291 M99.04 Thoracic s egmental dysfunction 954657701 M99.02 [id number] [facility] [address] [facility] [place] [address] 04/03/2025 15:26:17 04/05/2025 09:26:39 Lumbar segmental dysfunction 827310780 M99.03 Low back pain 401941120 M54.50 Somatic dy sfunction of sacral spine 045025932 M99.04 Thoracic s egmental dysfunction 732566965 M99.02 Health Concerns Section Related Observation LastModified by Organization Detai ls LastModified Time None Recorded Concern Status LastModified by Organization Details LastModified Time None Recorded Advance Directives Directive None Recorded Payers Insurance Date Sequence Insurance Name Policy Number Policy [employer] Covered Member ID [employer] Member ID Guarantor Name 08/02/2024 1 *SELF PAY* Evaristo Chavarria 08/02/2024 STRATEGIC COMP Kristen Singh Notes Date Note Type Note Provider Name and Address Organization Details Recorded Time 08/02/2024 text/html HPI - Lumbar SpineReported by PatientHPIFor location, patient reportsleft(with radiation to knee). For quality, patient reportsaching. For severity, patient reportsnot changing. For timing, patient reportsmorning. For aggravating factors, patient reportsstanding. For alleviating factors, patient reportsice. Yony Castillo [place] [address] [facility], [place], [address], [facility] 08/02/2024 18:11:24 08/10/2024 text/html HPI - Lumbar SpineReported by PatientHPIFor location, patient reportsleft(with radiation to knee). For quality, patient reportsaching. For severity, patient reportsnot changing. For timing, patient reportsmorning. For aggravating factors, patient reportsstanding. For alleviating factors, patient reportsice. Wali Garsia [place] [address] [facility], [place], [address], [facility] 08/10/2024 11:18:21 04/03/2025 text/html HPI - Lumbar SpineReported by PatientHPIFor location, patient reportsleft. For quality, patient reportsaching. For severity, patient reportsmoderate. For timing, patient reportsmorning. For aggravating factors, patient reportswalking,lifti ng,carrying, andtwisting. For alleviating factors, patient reportsrest. Handy Canseco [place] [address] [facility], [place], [address], [facility] 04/04/2025 08:10:43 OBGyn Episode No OBEpisode recorded.
== END 2025-04-29 16:30 | disposition home or self-care (01) ==
PROVIDERS: Emergency Provider Emergency Medicine; PCP Family Medicine
DX: J04.0 Acute laryngitis (principal)
CPT/HCPCS: 87631; 87651; 99283